=== PATIENT | male | born 1945 | race Caucasian/White ===

== ENCOUNTER 2018-06-03 11:43 | Emergency (ER) | payer MEDICARE, OTHER, SELFPAY ==
[2018-06-03] VITALS (7 sets, daily range): BP systolic 111–154; BP diastolic 57–96; PULSE 82–88; RESP 14–20; TEMP 36.1; O2SAT 95–97
--- NOTE | 2018-06-03 11:51 | DI.RAD.S_ITS ---
PROCEDURE: XR CHEST 2V INDICATIONS: sob TECHNIQUE: 2 views of the chest were acquired. COMPARISON: [facility], CHEST 2 VIEW, 06/24/2017, 10:29. [facility], CHEST 1 VIEW, 07/08/2016, 13:12. FINDINGS: Surgical changes and devices: None. Lungs and pleura: No pleural effusions or pneumothorax. Lungs are clear. Mediastinum: Mediastinal contours are normal. Heart size is normal. Bones and chest wall: No suspicious bony abnormalities. Soft tissues appear unremarkable. IMPRESSION: Normal for age, source of current shortness of breath symptoms is not seen. Dictated by: John Dillard M.D. on 06/03/2018 at 12:06 Approved by: John Dillard M.D. on 06/03/2018 at 12:07
--- NOTE | 2018-06-03 13:23 | ED.URI ---
HPI - URI/Sore Throat General Chief Complaint: Upper Respiratory Symptoms Stated Complaint: UPPER RESP PAIN, DIZZINESS,WEAK Time Seen by Provider: 06/03/18 13:23 Source: patient Mode of arrival: ambulatory Limitations: no limitations History of Present Illness HPI Narrative: Patient is a 72-year-old insulin-dependent diabetic male with a history of coronary artery disease here for evaluation of continued cough and upper respiratory congestion. He was just recently treated with a course of antibiotics however has been off those for the past several days. He is also here complaining of upper chest pain and upper back pain and tingling down into his bilateral arms. He was seen at the walk-in clinic to set him here to the emergency department for evaluation. Related Data Home Medications Medication Instructions Recorded Confirmed acetaminophen 650 mg PO Q6HP PRN #0 07/08/16 06/03/18 cetirizine 10 mg PO DAILY PRN #0 07/08/16 06/03/18 clopidogrel 75 mg PO DAILY #0 07/08/16 06/03/18 dulaglutide [Trulicity] 1.5 mg SC QWEEK #0 07/08/16 06/03/18 fenofibrate 160 mg PO DAILY #0 07/08/16 06/03/18 fluticasone 1 spray INTRANASAL PRN PRN #0 07/08/16 06/03/18 gabapentin [Neurontin] 600 mg PO BID #0 07/08/16 06/03/18 insulin glargine [Lantus U-100 60 unit SQ QDAY #0 07/08/16 06/03/18 Insulin] insulin lispro [Humalog U-100 7 - 20 unit SQ TIDAC #0 07/08/16 06/03/18 Insulin] nitroglycerin [Nitrostat] 0.4 mg SUBLINGUAL PRN PRN #0 07/08/16 06/03/18 aspirin 81 mg PO QPM #0 07/09/16 06/03/18 lisinopril 2.5 mg PO DAILY #0 07/09/16 06/03/18 pantoprazole 20 mg tablet,delayed 40 mg PO DAILY tab 05/21/18 06/03/18 release albuterol sulfate [ProAir HFA] 1 puff INHALATION Q4H PRN 06/03/18 06/03/18 benzonatate 100 mg PO BEDTIME PRN 06/03/18 06/03/18 meloxicam 15 mg PO DAILY 06/03/18 06/03/18 trazodone 50 - 100 mg PO BEDTIME PRN 06/03/18 06/03/18 Previous Rx's Medication Instructions Recorded pramoxine [Proctofoam] 1 nahed NC BID PRN #15 gm 06/09/16 isosorbide mononitrate 30 mg PO QAM #30 tab 07/09/16 codeine-guaifenesin [Guaifenesin 10 ml PO Q4-6H PRN #118 ml 06/03/18 AC] Allergies Allergy/AdvReac Type Severity Reaction Status Date / Time glipizide [GLIPIZIDE] Allergy Intermediate Verified 05/21/18 13:19 niacin [NIACIN] Allergy Intermediate Verified 05/21/18 13:19 [id number]-[id number]-Rbm Reductase Allergy Intermediate Verified 05/21/18 13:19 Inhibitor [[id number] REDUCTASE INHIBITOR] Review of Systems Constitutional Denies fever(s) and Denies headache(s) ENT Ears, Nose, Mouth, and Throat: Denies headache(s), Reports sinus pain, Reports sinus pressure and Denies sore throat Cardiovascular Reports chest pain, Denies palpitations and Denies dyspnea Respiratory Reports cough and Denies dyspnea Gastrointestinal Gastrointestinal: Denies abdominal pain, Denies nausea and Denies vomiting Musculoskeletal Denies myalgias and Denies arthralgias Integumentary/Breasts Denies lesions and Denies rash Neurologic Denies headache(s) Endocrine Denies palpitations Hematologic/Lymphatic Comments: Not on anticoagulation Allergic/Immunologic Denies urticaria PFSH Medical History Coronary artery disease (Acute) Diabetes (Acute) Hypertension (Acute) Social History Smoking Status: Former smoker Exam Initial Vital Signs Initial Vital Signs: Vital Signs Temperature 97.0 F L 06/03/18 11:44 Pulse Rate 85 06/03/18 11:44 Respiratory Rate 20 06/03/18 11:44 Blood Pressure 154/81 H 06/03/18 11:44 Pulse Oximetry 97 06/03/18 11:44 Const General: cooperative, healthy appearing, comfortable, well developed, well groomed and No acute distress Orientation: alert, awake and oriented x3 HENMT Head: normal to inspection and normocephalic Chest Chest: normal inspection of the chest, No crepitus and No tenderness Resp Effort & Inspection: normal respiratory effort Auscultation: clear to auscultation bilaterally Cardio Rate: regular rate Rhythm: regular rhythm Pulses: radial pulses present GI Inspection: non-distended Palpation: soft, No firm and No tender Skin Lesions: no lesions Rashes: no rashes Neuro General: alert, awake and oriented x3 Cognition: normal cognition Speech: speech normal Extrem General: normal to inspection and No edema Psych Appearance: grossly normal and well kempt Course Orders Ordered: ED Orders 06/03/18 11:51 XR chest 2V Stat 06/03/18 13:39 CT angio chest abdomen Stat 06/03/18 13:45 Basic Metabolic Panel Stat Complete Blood Count AUTO DIFF Stat Discontinued Medications Sodium Chloride (Normal Saline 0.9%) 1,000 mls @ 1,000 mls/hr IV BOLUS ONE Stop: 06/03/18 14:38 Last Infusion: 06/03/18 15:12 Dose: 0 mls/hr Admin: 06/03/18 13:51 Dose: 1,000 mls/hr Vital Signs - 8 hr 06/03/18 12:26 06/03/18 13:30 06/03/18 13:45 Pulse Rate 88 82 Respiratory Rate 14 Blood Pressure Blood Pressure [Left Arm] 148/96 H 119/83 Pulse Oximetry 96 96 06/03/18 14:56 06/03/18 15:01 06/03/18 15:44 Pulse Rate 85 88 Respiratory Rate 20 Blood Pressure 124/73 Blood Pressure [Left Arm] 111/57 L Pulse Oximetry 95 96 MDM - URI/Sore Throat Lab Data Attestation: I reviewed the patient's lab results. Result diagrams: 06/03/18 13:45 06/03/18 13:45 Lab Results 06/03/18 06/03/18 Range/Units 13:45 13:45 WBC 9.8 (4.5-11.0) X10^3/uL RBC 4.57 (4.5-5.9) X10^6/uL Hgb 12.3 L (13.5-17.5) g/dL Hct 37.9 L (41-53) % MCV 82.8 (80-100) fL MCH 27.0 (26-34) PG MCHC 32.6 (30-36) % RDW 15.1 H (11.6-14.8) % Plt Count 299 (150-400) X10^3/uL Neut % (Auto) 64.9 (50-75) % Lymph % (Auto) 23.9 L (25-40) % Edwards % (Auto) 9.2 (3-14) % Eos % (Auto) 1.1 L (2-4) % Baso % (Auto) 0.9 (0-2) % Neut # (Auto) 6300 (8485-6821) /uL Lymph # (Auto) 2300 (2193-6829) /uL Edwards # (Auto) 900 (0-900) /uL Eos # (Auto) 100 (0-450) /uL Baso # (Auto) 100 (0-100) /uL Sodium 135 L (137-145) mmol/L Potassium 4.5 (3.4-5.1) mmol/L Chloride 103 (98-107) mmol/L Carbon Dioxide 22 (22-32) mmol/L BUN 23 H (9-20) mg/dL Creatinine 1.10 (0.66-1.25) mg/dL Estimated GFR > 60.0 (>60) mL/min BUN/Creatinine Ratio 20.9 (6-22) Glucose 163 H (80-110) mg/dL Calcium 9.3 (8.4-10.2) mg/dL Imaging Data Chest x-ray: Radiologist's impression: ROCEDURE: XR CHEST 2V INDICATIONS: sob TECHNIQUE: 2 views of the chest were acquired. COMPARISON: [facility], CHEST 2 VIEW, 06/24/2017, 10:29. [facility], CHEST 1 VIEW, 07/08/2016, 13:12. FINDINGS: Surgical changes and devices: None. Lungs and pleura: No pleural effusions or pneumothorax. Lungs are clear. Mediastinum: Mediastinal contours are normal. Heart size is normal. Bones and chest wall: No suspicious bony abnormalities. Soft tissues appear unremarkable. IMPRESSION: Normal for age, source of current shortness of breath symptoms is not seen. Dictated by: John Dillard M.D. on 06/03/2018 at 12:06 Approved by: John Dillard M.D. on 06/03/2018 at 12:07 CTA chest: Radiologist's impression: ROCEDURE: CT ANGIO CHEST ABDOMEN INDICATIONS: chest and back pain eval for thoracic aortic dissection TECHNIQUE: Precontrast 5 mm thick sections acquired from the lung apices to the iliac crests. After the administration of intravenous contrast, 2.5 mm thick sections again acquired from the lung apices to the iliac crests. 10 mm maximum intensity projection (MIP) oblique sagittal and coronal reformats were then acquired. For radiation dose reduction, the following was used: automated exposure control. COMPARISON: [facility], CR, XR CHEST 2V, 06/03/2018, 11:57. FINDINGS: Image quality: Excellent. AORTA: Intramural hematoma: Absent Maximum hematoma thickness: Absent. Focal contrast enhancement: Intramural blood pool (< 2 mm neck or imperceptible communication with aortic lumen): Absent. Ulcer-like projection (broad communication with aortic lumen > 3 mm): Absent. Dissection: Absent [place] classification: Not applicable Maximum aortic diameter: Normal at 4.1 cm. Periaortic hematoma: Absent. CHEST: Lungs and pleura: No acute airspace opacities. No pleural effusions or pneumothorax. Central and peripheral airways are patent and normal in caliber. Mediastinum: Heart size is normal. No pericardial effusion. No mediastinal or hilar adenopathy by size criteria. Central pulmonary arteries are normal in size. Esophagus is normal in caliber. No hiatal hernias. Bones and chest wall: No axillary adenopathy by size criteria. Thyroid gland appears normal where well visualized. No suspicious bony lesions. No vertebral body compression fractures. ABDOMEN: Vasculature: Celiac trunk and mesenteric arteries are patent. Renal arteries are also patent. Solid organs: Liver is normal in size and enhancement. Gallbladder appears normal. Biliary system is non dilated. Pancreas enhances normally. Spleen is normal in size and enhancement. No adrenal nodules. Both kidneys are normal in size and enhancement, without hydronephrosis. Peritoneum and bowel: No free fluid or air. Bowel loops are normal in caliber and wall thickness. Nodes and vessels: No retroperitoneal or mesenteric adenopathy by size criteria. Inferior vena cava is normal in morphology. Bones: No suspicious bony lesions. No vertebral body compression fractures. Miscellaneous: No ventral hernias. IMPRESSION: Mild to moderate atherosclerotic calcification of the abdominal aorta but no aneurysm or dissection is seen. No pulmonary embolus is found. Source of reported chest pain is not identified. Dictated by: John Dillard M.D. on 06/03/2018 at 14:55 Approved by: John Dillard M.D. on 06/03/2018 at 15:0 [facility] Narrative Medical decision making narrative: His presenting symptoms they were fairly consistent with the upper respiratory infection and sinus congestion. We did discuss the use of decongestants. Also sent home with Desiree with codeine for a cough suppressant. He also has Tessalon Perles at home. The chest x-ray was negative. The CTA of his chest was ordered because he was having upper chest pain and back pain and radiating down to his arms. This was to evaluate for a dissection. The CT a of the chest was unremarkable. I did discuss all this with the patient and his were bedside. Will hold on further workup for now. They are going to do the decongestants at home. They are given return precautions. They expressed understanding and agreement plan. Discharge Plan Departure Patient Disposition: Home Clinical Impression: Upper respiratory infection, Cough Discharge Date/Time: 06/03/18 15:45 Interventions: ED Discharge Assessment Last Done: 06/03/18 15:44 Instructions: Cough (Alternative Therapy), Cough Activity Restrictions/Additional Instructions: I recommend you take the medication like we discussed. I also recommend that you take either Claritin or Kailyn or Zyrtec like we discussed. Also Flonase or Nasonex. Call your primary care doctor for follow-up. Return to the emergency department for any new or worsening symptoms Prescriptions: New codeine-guaifenesin [Guaifenesin AC] 10-100 mg/5 mL liquid 10 ml PO Q4-6H PRN (Reason: cough) Qty: 118 RF: 0 No Action pantoprazole 20 mg tablet,delayed release (DR/EC) 40 mg PO DAILY RF: 0 pramoxine [Proctofoam] 1 % foam 1 nahed NC BID PRNQty: 15 RF: 0 acetaminophen 325 mg Suppository 650 mg PO Q6HP PRN (Reason: pain) Qty: 0 RF: 0 cetirizine 10 MG tablet 10 mg PO DAILY PRN (Reason: unknown) Qty: 0 RF: 0 clopidogrel 75 MG tablet 75 mg PO DAILY Qty: 0 RF: 0 gabapentin [Neurontin] 300 MG capsule 600 mg PO BID Qty: 0 RF: 0 fluticasone 16 GM spray,suspension 1 spray Intranasal PRN PRN (Reason: Allergy Symptoms) Qty: 0 RF: 0 fenofibrate 160 MG tablet 160 mg PO DAILY Qty: 0 RF: 0 nitroglycerin [Nitrostat] 0.4 MG tablet, sublingual 0.4 mg Sublingual PRN PRN (Reason: Chest Pain) Qty: 0 RF: 0 dulaglutide [Trulicity] 1.5 MG/0.5 ML pen injector 1.5 mg SC QWEEK Qty: 0 RF: 0 insulin glargine [Lantus U-100 Insulin] 100 UNIT/1 ML solution 60 unit SQ QDAY Qty: 0 RF: 0 insulin lispro [Humalog U-100 Insulin] 100 UNIT/1 ML solution 7 - 20 unit SQ TIDAC Qty: 0 RF: 0 aspirin 81 MG tablet,delayed release (DR/EC) 81 mg PO QPM Qty: 0 RF: 0 lisinopril 2.5 MG tablet 2.5 mg PO DAILY Qty: 0 RF: 0 isosorbide mononitrate 30 MG tablet extended release 24 hr 30 mg PO QAM Qty: 30 RF: 0 trazodone 50 mg tablet 50 - 100 mg PO BEDTIME PRN (Reason: unknown) RF: 0 meloxicam 15 mg tablet 15 mg PO DAILY RF: 0 albuterol sulfate [ProAir HFA] 90 mcg/actuation HFA aerosol inhaler 1 puff Inhalation Q4H PRN (Reason: Shortness Of Breath) RF: 0 benzonatate 100 mg capsule 100 mg PO BEDTIME PRN (Reason: Cough) RF: 0
--- NOTE | 2018-06-03 13:39 | DI.CT.S_ITS ---
PROCEDURE: CT ANGIO CHEST ABDOMEN INDICATIONS: chest and back pain eval for thoracic aortic dissection TECHNIQUE: Precontrast 5 mm thick sections acquired from the lung apices to the iliac crests. After the administration of intravenous contrast, 2.5 mm thick sections again acquired from the lung apices to the iliac crests. 10 mm maximum intensity projection (MIP) oblique sagittal and coronal reformats were then acquired. For radiation dose reduction, the following was used: automated exposure control. COMPARISON: [facility], CR, XR CHEST 2V, 06/03/2018, 11:57. FINDINGS: Image quality: Excellent. AORTA: Intramural hematoma: Absent Maximum hematoma thickness: Absent. Focal contrast enhancement: Intramural blood pool (< 2 mm neck or imperceptible communication with aortic lumen): Absent. Ulcer-like projection (broad communication with aortic lumen > 3 mm): Absent. Dissection: Absent [place] classification: Not applicable Maximum aortic diameter: Normal at 4.1 cm. Periaortic hematoma: Absent. CHEST: Lungs and pleura: No acute airspace opacities. No pleural effusions or pneumothorax. Central and peripheral airways are patent and normal in caliber. Mediastinum: Heart size is normal. No pericardial effusion. No mediastinal or hilar adenopathy by size criteria. Central pulmonary arteries are normal in size. Esophagus is normal in caliber. No hiatal hernias. Bones and chest wall: No axillary adenopathy by size criteria. Thyroid gland appears normal where well visualized. No suspicious bony lesions. No vertebral body compression fractures. ABDOMEN: Vasculature: Celiac trunk and mesenteric arteries are patent. Renal arteries are also patent. Solid organs: Liver is normal in size and enhancement. Gallbladder appears normal. Biliary system is non dilated. Pancreas enhances normally. Spleen is normal in size and enhancement. No adrenal nodules. Both kidneys are normal in size and enhancement, without hydronephrosis. Peritoneum and bowel: No free fluid or air. Bowel loops are normal in caliber and wall thickness. Nodes and vessels: No retroperitoneal or mesenteric adenopathy by size criteria. Inferior vena cava is normal in morphology. Bones: No suspicious bony lesions. No vertebral body compression fractures. Miscellaneous: No ventral hernias. IMPRESSION: Mild to moderate atherosclerotic calcification of the abdominal aorta but no aneurysm or dissection is seen. No pulmonary embolus is found. Source of reported chest pain is not identified. Dictated by: John Dillard M.D. on 06/03/2018 at 14:55 Approved by: John Dillard M.D. on 06/03/2018 at 15:00
[2018-06-03] MEDS: SODIUM CHLORIDE 0.9% 1,000 ML 1000 ML IV (13:51)
[2018-06-03 13:55] LABS: Add Manual Diff / Slide Review NO; Basophils Absolute Auto 100 /uL (0-100); Basophils Percent Auto 0.9 % (0-2); Eosinophils Absolute Auto 100 /uL (0-450); Eosinophils Percent Auto 1.1 % (2-4); Hematocrit 37.9 % (41-53); Hemoglobin 12.3 g/dL (13.5-17.5); Lymphocytes Absolute Auto 2300 /uL (1100-4500); Lymphocytes Percent Auto 23.9 % (25-40); Mean Corpuscular HGB Conc 32.6 % (30-36); Mean Corpuscular Volume 82.8 fL (80-100); Monocytes Absolute Auto 900 /uL (0-900); Monocytes Percent Auto 9.2 % (3-14); Neutrophils Absolute Auto 6300 /uL (1500-7000); Neutrophils Percent Auto 64.9 % (50-75); Platelet Count 299 X10^3/uL (150-400); Red Blood Cell Count 4.57 X10^6/uL (4.5-5.9); Red Cell Distribution Width 15.1 % (11.6-14.8); White Blood Cell Count 9.8 X10^3/uL (4.5-11.0)
[2018-06-03 14:10] LABS: BUN Creatinine Ratio 20.9 (6-22); Blood Urea Nitrogen 23 mg/dL (9-20); Calcium 9.3 mg/dL (8.4-10.2); Carbon Dioxide 22 mmol/L (22-32); Chloride 103 mmol/L (98-107); Estimated Glomerular Filt Rate > 60.0 mL/min (>60); Glucose 163 mg/dL (80-110); HEMOLYSIS < 15 (0-50); Potassium 4.5 mmol/L (3.4-5.1); Sodium 135 mmol/L (137-145)
== END 2018-06-03 15:45 | disposition home or self-care (01) ==
PROVIDERS: Emergency Provider Emergency Medicine; PCP Physician Assistant Medical
DX: J06.9 Acute upper respiratory infection, unspecified (principal)
CPT/HCPCS: 36591; 71046; 71275; 74175; 80048; 85025; 96360; 99283; 99285

== ENCOUNTER 2018-12-06 13:39 | Observation (INO) | payer MEDICARE, OTHER, SELFPAY ==
[2018-12-06] VITALS (9 sets, daily range): BP systolic 109–170; BP diastolic 56–87; PULSE 67–83; RESP 11–20; TEMP 36.4–36.7; O2SAT 95–99; BMI 37.0
--- NOTE | 2018-12-06 13:56 | DI.RAD.S_ITS ---
PROCEDURE: XR ACUTE ABDOMEN SERIES INDICATIONS: Abdominal pain, groin pain, back pain TECHNIQUE: One view chest and two views of the abdomen were acquired. COMPARISON: None. FINDINGS: Surgical changes and devices: No median sternotomy wires are seen. ne. Chest: Lungs are clear. Heart size is enlarged. No pleural effusions. No pneumoperitoneum. Abdomen: Bowel gas pattern is normal. Small calcifications are noted in the region of upper to mid pole left kidney and measures up to 6 mm in size. No right-sided renal calcification. Visualized solid organ contours appear normal. Bones: No suspicious bony lesions. IMPRESSION: 1. Finding is suggestive of left-sided renal calculi. No right-sided renal calculi. No bowel obstruction or gross free air. 2. Cardiomegaly. No acute cardiopulmonary pathology. Dictated by: Howie Martin M.D. on 12/06/2018 at 14:50 Approved by: Howie Martin M.D. on 12/06/2018 at 14:54
--- NOTE | 2018-12-06 13:58 | ED.EXTPRO ---
HPI - Extremity Problem General Chief complaint: Extremity Problem,Nontraumatic Stated complaint: Lt hip pain and nausea Time Seen by Provider: 12/06/18 13:46 Source: patient, family and EMS Mode of arrival: EMS Limitations: no limitations History of Present Illness HPI Narrative: 73-year-old male former smoker with extensive cardiac history including four-way bypass presents by EMS for concerns of left anterior hip pain in the absence of any injury. He states that over the past day and a half for so his pain has become increasingly worse and is particularly bad with any attempt at ambulation. He denies any falls or overuse type injuries. He denies any numbness, tingling or weakness of his lower extremity. He is not dizzy nor weak or lightheaded and denies chest pain or shortness of breath. His nausea and vomiting when the pain flares. He denies any change in bowel habits nor dysuria, frequency or urgency. He has had kidney stones in the past and states this feels different. His pain improves when he rolled onto his left side and applies pressure to the hip and become significantly worse with attempts at ambulation. He does admit to some left posterior flank pain MD Complaint: extremity pain Onset (ago): day(s) Pain Consistency: constant Location: left Quality: stabbing and aching Exacerbating factors: weight bearing and walking Related Data Home Medications Medication Instructions Recorded Confirmed Lantus U-100 Insulin 50 unit SQ QPM #0 07/08/16 12/06/18 clopidogrel 75 mg PO DAILY #0 07/08/16 12/06/18 fenofibrate 160 mg PO QPM #0 07/08/16 12/06/18 fluticasone propionate 2 spray INTRANASAL DAILY PRN #0 07/08/16 12/06/18 gabapentin [Neurontin] 600 mg PO BID #0 07/08/16 12/06/18 insulin lispro [Humalog U-100 6 unit SQ TIDAC #0 07/08/16 12/06/18 Insulin] nitroglycerin [Nitrostat] 0.4 mg SUBLINGUAL PRN PRN #0 07/08/16 12/06/18 aspirin 81 mg PO QPM #0 07/09/16 12/06/18 lisinopril 2.5 mg PO DAILY #0 07/09/16 12/06/18 albuterol sulfate [ProAir HFA] 1 puff INHALATION Q4H PRN 06/03/18 12/06/18 meloxicam 15 mg PO DAILY MDD pain 06/03/18 12/06/18 acetaminophen 650 mg PO Q6H PRN 12/06/18 12/06/18 cetirizine 10 mg PO DAILY PRN 12/06/18 12/06/18 dulaglutide [Trulicity] 0.75 mg SUBCUT QWEEK 12/06/18 12/06/18 isosorbide mononitrate 30 mg PO BID 12/06/18 12/06/18 pantoprazole 40 mg PO DAILY 12/06/18 12/06/18 Allergies Allergy/AdvReac Type Severity Reaction Status Date / Time glipizide [GLIPIZIDE] Allergy Intermediate Verified 12/06/18 13:49 niacin [NIACIN] Allergy Intermediate Verified 12/06/18 13:49 Mmunxwf-Sxe-Grq Reductase Allergy Intermediate Verified 12/06/18 13:49 Inhibitor [[id number] REDUCTASE INHIBITOR] albiglutide [From Tanzeum] Allergy Unknown Verified 12/06/18 17:12 metoprolol Allergy Unknown Verified 12/06/18 17:12 Review of Systems Constitutional Denies chills, Denies fever(s), Denies lethargy and Denies weakness Eyes Denies change in vision, Denies eye discharge, Denies irritation and Denies loss of vision ENT Ears, Nose, Mouth, and Throat: Denies change in voice, Denies neck pain and Denies sore throat Cardiovascular Denies chest pain, Denies irregular heart rhythm, Denies lightheadedness, Denies palpitations, Denies dyspnea, Denies dyspnea on exertion and Denies orthopnea Respiratory Denies cough, Denies dyspnea, Denies dyspnea on exertion and Denies wheezing Gastrointestinal Gastrointestinal: Denies abdominal pain, Denies change in bowel habits, Denies diarrhea, Denies nausea and Denies vomiting Genitourinary Denies hematuria, Denies flank pain, Denies urinary incontinence and Denies urinary urgency Musculoskeletal Reports limited range of motion and Denies neck pain Integumentary/Breasts Denies pruritus, Denies erythema, Denies rash and Denies wounds Neurologic Denies confusion, Denies loss of vision and Denies weakness Psychiatric Denies anxiety, Denies confusion, Denies depression, Denies homicidal ideation and Denies suicidal ideation Endocrine Denies palpitations Hematologic/Lymphatic Denies easy bruising Allergic/Immunologic Denies wheezing [facility] Medical History Aneurysm (Chronic) History of kidney stones (Chronic) Coronary artery disease (Acute) Diabetes (Acute) Hypertension (Acute) Surgical History History of coronary artery stent placement (Chronic) History of colon resection (Inactive) S/P CABG x 4 (Inactive) Family History (Updated 12/06/18 @ 23:18 by EVELINA Macedo) Mother Hypertension Father Hypertension Social History Smoking Status: Former smoker Family History Mother Hypertension Father Hypertension Social History Smoking Status: Former smoker Exam Narrative Exam Narrative: GENERAL: 73-year-old male appears stated age, obviously quite uncomfortable, holding an emesis basin and rubbing his left groin. HEAD: Atraumatic. Normocephalic. No temporal or scalp tenderness. EYES: Pupils equal round and reactive. Extraocular motions intact. No scleral icterus. No injection or drainage. ENT: Nose without bleeding, purulent drainage or septal hematoma. Throat without erythema, tonsillar hypertrophy or exudate. Uvula midline. Airway patent. NECK: Trachea midline. No JVD or lymphadenopathy. Supple, nontender, no meningeal signs. CARDIOVASCULAR: Regular rate and rhythm without murmurs, gallops, or rubs. RESPIRATORY: Clear to auscultation. Breath sounds equal bilaterally. No wheezes, rales, or rhonchi. GASTROINTESTINAL: Abdomen soft, non-tender, nondistended. No hepato-splenomegaly, or palpable masses. No guarding. : No testicular or scrotal pain, swelling or redness. No evidence of hernia on exam. EXTREMITIES: Palpable left femoral hernia pulse, no redness, warmth, swelling, induration or fluctuance. No clubbing, cyanosis, or edema. Patient does quite well with passive flexion extension of the hip as well as internal and external rotation. He has little to no pain with axial loading of the left hip. BACK: Mild left flank tenderness to palpation NEURO: AOx3. SKIN: No rash or erythema. Initial Vital Signs Initial Vital Signs: Vital Signs Temperature 97.8 F 12/06/18 13:42 Pulse Rate 81 12/06/18 13:42 Respiratory Rate 16 12/06/18 13:42 Blood Pressure 143/71 H 12/06/18 13:42 Pulse Oximetry 97 12/06/18 13:42 Course Orders Ordered: ED Orders 12/07/18 05:45 Basic Metabolic Panel Routine Hemoglobin A1C% w Est Avg Glu Routine 12/07/18 17:00 Complete Blood Count AUTO DIFF Routine 12/07/18 20:01 Consult to Physical Therapy Evaluate & Treat Acetaminophen (Tylenol) 650 mg PO Q6HR PRN PRN Reason: As Needed for Fever/Mild Pain Last Admin: 12/07/18 00:24 Dose: 650 mg Acetaminophen (Tylenol) 650 mg PO Q6H PRN PRN Reason: pain Hydrocodone Bitart/Acetaminophen (Vivian 5/325) 1 tab PO Q6HR PRN PRN Reason: Pain, Moderate (4-6) Albuterol (Ventolin Hfa) 1 puff INH Q4H PRN PRN Reason: Shortness Of Breath Aspirin (Aspirin Ec) 81 mg PO QPM [facility] Calcium Carbonate (Tums) 1,000 mg PO Q4HR PRN PRN Reason: Dyspepsia Clopidogrel Bisulfate (Plavix) 75 mg PO DAILY [facility] Dextrose (D50w) 25 gm IV PRN PRN PRN Reason: Hypoglycemia Enoxaparin Sodium (Lovenox) 40 mg SUBCUT DAILY [facility] Fenofibrate (Triglide) 160 mg PO QPM [facility] Gabapentin (Neurontin) 600 mg PO BID [facility] Insulin Aspart (Novolog Flexpen) 6 unit SUBCUT TIDWM [facility] Insulin Glargine (Lantus Solostar (Pen)) 50 unit SUBCUT 2100 BERTHA Last Admin: 12/06/18 22:13 Dose: 50 unit Isosorbide Mononitrate (Imdur) 30 mg PO BID [facility] Lisinopril (Zestril) 2.5 mg PO DAILY [facility] Ondansetron HCl (Zofran) 4 mg IV Q4HR PRN PRN Reason: Nausea And Vomiting Last Admin: 12/06/18 17:46 Dose: 4 mg Pantoprazole Sodium (Protonix) 40 mg PO DAILY [facility] Promethazine HCl (Phenergan) 25 mg PO Q6HR PRN PRN Reason: Nausea Discontinued Medications Acetaminophen (Tylenol) 650 mg PO NOW ONE Stop: 12/06/18 20:54 Last Admin: 12/06/18 19:50 Dose: 650 mg Insulin Human NPH (Humulin N) 6 unit SUBCUT TIDWM [facility] Reevaluation(s) Reevaluation #1: After extensive lab and imaging workup with no obvious etiology of the pain, ambulation trial attempted, patient given a walker and instruction and could not put weight on his left lower extremity, stating the left anterior hip pain was excruciating Consultations Consultation #1: Discussion with on-call orthopedics, no need for immediate intervention, or procedure, but perhaps a pelvic MRI would be telling. Recommends admission to hospitalist Vital Signs - 8 hr 12/07/18 00:26 12/07/18 03:10 Temperature 98.3 F Pulse Rate 78 Respiratory Rate 20 Blood Pressure 149/77 H Pulse Oximetry 99 95 MDM - Extremity (Nontraumatic) Lab Data Result diagrams: 12/06/18 18:50 12/07/18 05:45 Lab Results 12/06/18 12/06/18 12/06/18 Range/Units 17:40 18:50 18:50 WBC 10.3 (4.5-11.0) X10^3/uL RBC 5.09 (4.5-5.9) X10^6/uL Hgb 14.1 (13.5-17.5) g/dL Hct 43.2 (41-53) % MCV 84.9 (80-100) fL MCH 27.8 (26-34) PG MCHC 32.7 (30-36) % RDW 15.6 H (11.6-14.8) % Plt Count 251 (150-400) X10^3/uL Neut % (Auto) 74.9 (50-75) % Lymph % (Auto) 16.7 L (25-40) % Bradley % (Auto) 7.4 (3-14) % Eos % (Auto) 0.4 L (2-4) % Baso % (Auto) 0.6 (0-2) % Neut # (Auto) 7700 H (8044-7436) /uL Lymph # (Auto) 1700 (9894-4256) /uL Bradley # (Auto) 800 (0-900) /uL Eos # (Auto) 0 (0-450) /uL Baso # (Auto) 100 (0-100) /uL ESR (0-15) MM/HR PT 11.4 (10.1-12.7) SECONDS INR 1.0 (0.9-1.3) Sodium (137-145) mmol/L Potassium (3.4-5.1) mmol/L Chloride (98-107) mmol/L Carbon Dioxide (22-32) mmol/L BUN (9-20) mg/dL Creatinine (0.66-1.25) mg/dL Estimated GFR (>60) mL/min BUN/Creatinine Ratio (6-22) Glucose (80-110) mg/dL Hemoglobin A1c (4.0-6.0) % Calcium (8.4-10.2) mg/dL C-Reactive Protein (<1.0) mg/dL Urine Color Yellow Urine Appearance Clear Urine pH 7.5 (4.5-8.0) Ur Specific Dodge 1.010 (1.000-1.035) Urine Protein Negative (Negative) Urine Glucose (UA) Negative (Negative) g/dL Urine Ketones Negative (NEGATIVE) Urine Occult Blood Negative (Negative) Urine Nitrate Negative (Negative) Urine Bilirubin Negative (NEGATIVE) Urine Urobilinogen 1.0 (0.2) E.U./dL Ur Leukocyte Esterase Negative (NEGATIVE) Urine RBC None seen (0-5/HPF) Urine WBC 0-1/hpf (0-5/HPF) Ur Squamous Epith Cells 0-1 /hpf (0-5/HPF) Amorphous Sediment 1+ Urine Bacteria None seen (None) Ur Culture Indicated? Cult not indicated 12/06/18 12/06/18 12/06/18 Range/Units 18:50 18:50 18:50 WBC (4.5-11.0) X10^3/uL RBC (4.5-5.9) X10^6/uL Hgb (13.5-17.5) g/dL Hct (41-53) % MCV (80-100) fL MCH (26-34) PG MCHC (30-36) % RDW (11.6-14.8) % Plt Count (150-400) X10^3/uL Neut % (Auto) (50-75) % Lymph % (Auto) (25-40) % Bradley % (Auto) (3-14) % Eos % (Auto) (2-4) % Baso % (Auto) (0-2) % Neut # (Auto) (5551-2820) /uL Lymph # (Auto) (0333-1645) /uL Bradley # (Auto) (0-900) /uL Eos # (Auto) (0-450) /uL Baso # (Auto) (0-100) /uL ESR 7 (0-15) MM/HR PT (10.1-12.7) SECONDS INR (0.9-1.3) Sodium 137 (137-145) mmol/L Potassium 4.7 (3.4-5.1) mmol/L Chloride 100 (98-107) mmol/L Carbon Dioxide 25 (22-32) mmol/L BUN 15 (9-20) mg/dL Creatinine 0.80 (0.66-1.25) mg/dL Estimated GFR > 60.0 (>60) mL/min BUN/Creatinine Ratio 18.8 (6-22) Glucose 129 H (80-110) mg/dL Hemoglobin A1c (4.0-6.0) % Calcium 9.4 (8.4-10.2) mg/dL C-Reactive Protein 0.9 (<1.0) mg/dL Urine Color Urine Appearance Urine pH (4.5-8.0) Ur Specific Dodge (1.000-1.035) Urine Protein (Negative) Urine Glucose (UA) (Negative) g/dL Urine Ketones (NEGATIVE) Urine Occult Blood (Negative) Urine Nitrate (Negative) Urine Bilirubin (NEGATIVE) Urine Urobilinogen (0.2) E.U./dL Ur Leukocyte Esterase (NEGATIVE) Urine RBC (0-5/HPF) Urine WBC (0-5/HPF) Ur Squamous Epith Cells (0-5/HPF) Amorphous Sediment Urine Bacteria (None) Ur Culture Indicated? 12/07/18 12/07/18 Range/Units 05:45 05:45 WBC (4.5-11.0) X10^3/uL RBC (4.5-5.9) X10^6/uL Hgb (13.5-17.5) g/dL Hct (41-53) % MCV (80-100) fL MCH (26-34) PG MCHC (30-36) % RDW (11.6-14.8) % Plt Count (150-400) X10^3/uL Neut % (Auto) (50-75) % Lymph % (Auto) (25-40) % Bradley % (Auto) (3-14) % Eos % (Auto) (2-4) % Baso % (Auto) (0-2) % Neut # (Auto) (2927-9033) /uL Lymph # (Auto) (6659-0124) /uL Bradley # (Auto) (0-900) /uL Eos # (Auto) (0-450) /uL Baso # (Auto) (0-100) /uL ESR (0-15) MM/HR PT (10.1-12.7) SECONDS INR (0.9-1.3) Sodium 138 (137-145) mmol/L Potassium 4.2 (3.4-5.1) mmol/L Chloride 102 (98-107) mmol/L Carbon Dioxide 26 (22-32) mmol/L BUN 13 (9-20) mg/dL Creatinine 1.00 (0.66-1.25) mg/dL Estimated GFR > 60.0 (>60) mL/min BUN/Creatinine Ratio 13.0 (6-22) Glucose 128 H (80-110) mg/dL Hemoglobin A1c 7.2 H (4.0-6.0) % Calcium 9.4 (8.4-10.2) mg/dL C-Reactive Protein (<1.0) mg/dL Urine Color Urine Appearance Urine pH (4.5-8.0) Ur Specific Dodge (1.000-1.035) Urine Protein (Negative) Urine Glucose (UA) (Negative) g/dL Urine Ketones (NEGATIVE) Urine Occult Blood (Negative) Urine Nitrate (Negative) Urine Bilirubin (NEGATIVE) Urine Urobilinogen (0.2) E.U./dL Ur Leukocyte Esterase (NEGATIVE) Urine RBC (0-5/HPF) Urine WBC (0-5/HPF) Ur Squamous Epith Cells (0-5/HPF) Amorphous Sediment Urine Bacteria (None) Ur Culture Indicated? Point of Care Testing Glucose POC 141 [facility] Narrative Medical decision making narrative: 73M with extensive cardiac history complains of severe L anterior hip pain in the absence of injury. Extensive workup for etiologies such as musculoskeletal, vascular, intrabdominal pathology, hernia, testicular torsion, considered. No obvious etiology, attempt to get PT for ambulation trial, they were gone for the day. Attempts at ambulation trial fail quickly, even with multiple assistants and a walker. He is a significant fall risk and will need hospitalization to further evaluate and characterize his pain as well as get PT consultation if need Discharge Plan Departure Patient Disposition: Admitted as Observation Clinical Impression: Acute hip pain Qualifiers: Laterality: left Qualified Code(s): M25.552 - Pain in left hip Discharge Date/Time: 12/06/18 20:45 Interventions: ED Discharge Assessment Last Done: 12/06/18 20:45 Admit Date/Time: 12/06/18 20:03 Admit Provider: Meenakshi Gamez
--- NOTE | 2018-12-06 14:55 | DI.CT.S_ITS ---
PROCEDURE: CT ABDOMEN PELVIS W CON INDICATIONS: severe L groin pain, radiation to back, vasular hx TECHNIQUE: After the administration of intravenous contrast, 5 mm thick sections acquired from the diaphragm to the symphysis. 5 mm coronal and sagittal reformats were acquired. For radiation dose reduction, the following was used: automated exposure control, adjustment of mA and/or kV according to patient size. COMPARISON: None. FINDINGS: Image quality: Excellent. ABDOMEN: Lung bases: Lung bases are clear. Heart size is enlarged, no pericardial effusion. Median sternotomy wires are seen. Solid organs: Liver is normal in size and enhancement. There is hepatic steatosis. Gallbladder is within normal limits. Biliary system is non dilated. Pancreas enhances normally. Spleen is normal in size and enhancement. No adrenal nodules. Kidneys demonstrate normal size and enhancement, without hydronephrosis. 23 mm bilateral nonobstructing renal calculi are seen. Peritoneum and bowel: Bowel loops demonstrate normal wall thickness and caliber. No free fluid or air. Postsurgical changes are noted involving the right colon, suggest clinical correlation. Nodes and vessels: No retroperitoneal or mesenteric adenopathy by size criteria. Aorta and inferior vena cava are normal in size. Moderate atherosclerotic calcifications throughout the abdominal aorta and bilaterally at leg arteries are seen. Bilateral proximal common iliac artery aneurysm is seen measures up to 1.5 cm in diameter proximal left common iliac artery at 1.4 cm in diameter in proximal right common iliac artery. Miscellaneous: No ventral hernias. PELVIS: Genitourinary: Bladder wall thickness is normal. Miscellaneous: No inguinal hernias or adenopathy. Bones: No suspicious bony lesions. No vertebral body compression fractures. Degenerative disc disease throughout lower thoracic and lumbar spine is seen. IMPRESSION: 1. Post surgical changes involving right colon. No bowel obstruction. No abnormal bowel wall thickening. No free fluid or free air. 2. Dense atherosclerotic calcifications in mid to distal abdominal aorta and bilateral common iliac arteries. 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 3. Hepatic steatosis, no discrete hepatic lesion. 4. Tiny 2-3 mm bilateral nonobstructing renal calculi. No hydronephrosis. Dictated by: Howie Martin M.D. on 12/06/2018 at 16:12 Approved by: Howie Martin M.D. on 12/06/2018 at 16:15
--- NOTE | 2018-12-06 17:25 | PC.NURSE ---
Pt reports pain when he moves shoots up to a 5-6/10 but is zero when he's laying on his left side.
[2018-12-06] MEDS: ONDANSETRON 4 MG/2 ML INJ IV (17:46)
[2018-12-06 17:47] LABS: Bacteria Urine None Seen; RBC Urine None Seen (0-5/HPF)
--- NOTE | 2018-12-06 17:52 | PC.NURSE ---
Pt stood up to attempt ambulation, 2 person standby assist. He was not able to bear weight on his left leg. He did urinate about 200ml but then struggled to keep his balance standing with the walker, one step and he cried out in pain. Able to get him back into bed safely and pt reports his pain 3/10 while lying down in bed. Family worried about his diabetes so they are asking what his glucose is. We will check it.
[2018-12-06 18:00] LABS: Appearance Urine UA CLEAR; Bilirubin Urine UA NEGATIVE (NEGATIVE); Color Urine UA YELLOW; Glucose Urine UA NEGATIVE (Negative); Ketones Urine UA NEGATIVE (NEGATIVE); Leukocyte Esterase Urine UA NEGATIVE (NEGATIVE); Nitrite Urine UA NEGATIVE (Negative); Occult Blood Urine UA NEGATIVE (Negative); Protein Urine UA NEGATIVE (Negative); pH Urine UA 7.5 (4.5-8.0)
[2018-12-06 18:09] LABS: Amorphous Sediment Urine 1+; Culture Indicated Urine Cult Not Indicated; Squamous Epithelial Cell Urine 0-1 /HPF (0-5/HPF); WBC Urine 0-1/HPF (0-5/HPF)
--- NOTE | 2018-12-06 18:37 | ED_ITS ---
HPI - Extremity Problem General Chief complaint: Extremity Problem,Nontraumatic Stated complaint: Lt hip pain and nausea Time Seen by Provider: 12/06/18 13:46 Source: patient, family and EMS Mode of arrival: EMS Limitations: no limitations History of Present Illness HPI Narrative: 73-year-old male former smoker with extensive cardiac history including four-way bypass presents by EMS for concerns of left anterior hip pain in the absence of any injury. He states that over the past day and a half for so his pain has become increasingly worse and is particularly bad with any attempt at ambulation. He denies any falls or overuse type injuries. He denies any numbness, tingling or weakness of his lower extremity. He is not dizzy nor weak or lightheaded and denies chest pain or shortness of breath. His nausea and vomiting when the pain flares. He denies any change in bowel habits nor dysuria, frequency or urgency. He has had kidney stones in the past and states this feels different. His pain improves when he rolled onto his left side and applies pressure to the hip and become significantly worse with attempts at ambulation. He does admit to some left posterior flank pain MD Complaint: extremity pain Onset (ago): day(s) Pain Consistency: constant Location: left Quality: stabbing and aching Exacerbating factors: weight bearing and walking Related Data Home Medications Medication Instructions Recorded Confirmed Lantus U-100 Insulin 50 unit SQ QPM #0 07/08/16 12/06/18 clopidogrel 75 mg PO DAILY #0 07/08/16 12/06/18 fenofibrate 160 mg PO QPM #0 07/08/16 12/06/18 fluticasone propionate 2 spray INTRANASAL DAILY PRN #0 07/08/16 12/06/18 gabapentin [Neurontin] 600 mg PO BID #0 07/08/16 12/06/18 insulin lispro [Humalog U-100 6 unit SQ TIDAC #0 07/08/16 12/06/18 Insulin] nitroglycerin [Nitrostat] 0.4 mg SUBLINGUAL PRN PRN #0 07/08/16 12/06/18 aspirin 81 mg PO QPM #0 07/09/16 12/06/18 lisinopril 2.5 mg PO DAILY #0 07/09/16 12/06/18 albuterol sulfate [ProAir HFA] 1 puff INHALATION Q4H PRN 06/03/18 12/06/18 meloxicam 15 mg PO DAILY MDD pain 06/03/18 12/06/18 acetaminophen 650 mg PO Q6H PRN 12/06/18 12/06/18 cetirizine 10 mg PO DAILY PRN 12/06/18 12/06/18 dulaglutide [Trulicity] 0.75 mg SUBCUT QWEEK 12/06/18 12/06/18 isosorbide mononitrate 30 mg PO BID 12/06/18 12/06/18 pantoprazole 40 mg PO DAILY 12/06/18 12/06/18 Allergies Allergy/AdvReac Type Severity Reaction Status Date / Time glipizide [GLIPIZIDE] Allergy Intermediate Verified 12/06/18 13:49 niacin [NIACIN] Allergy Intermediate Verified 12/06/18 13:49 Fffklol-Mco-Vdt Reductase Allergy Intermediate Verified 12/06/18 13:49 Inhibitor [SIDHYTC-KAP-RWV REDUCTASE INHIBITOR] albiglutide [From Tanzeum] Allergy Unknown Verified 12/06/18 17:12 metoprolol Allergy Unknown Verified 12/06/18 17:12 Review of Systems Constitutional Denies chills, Denies fever(s), Denies lethargy and Denies weakness Eyes Denies change in vision, Denies eye discharge, Denies irritation and Denies loss of vision ENT Ears, Nose, Mouth, and Throat: Denies change in voice, Denies neck pain and Denies sore throat Cardiovascular Denies chest pain, Denies irregular heart rhythm, Denies lightheadedness, Denies palpitations, Denies dyspnea, Denies dyspnea on exertion and Denies orthopnea Respiratory Denies cough, Denies dyspnea, Denies dyspnea on exertion and Denies wheezing Gastrointestinal Gastrointestinal: Denies abdominal pain, Denies change in bowel habits, Denies diarrhea, Denies nausea and Denies vomiting Genitourinary Denies hematuria, Denies flank pain, Denies urinary incontinence and Denies urinary urgency Musculoskeletal Reports limited range of motion and Denies neck pain Integumentary/Breasts Denies pruritus, Denies erythema, Denies rash and Denies wounds Neurologic Denies confusion, Denies loss of vision and Denies weakness Psychiatric Denies anxiety, Denies confusion, Denies depression, Denies homicidal ideation and Denies suicidal ideation Endocrine Denies palpitations Hematologic/Lymphatic Denies easy bruising Allergic/Immunologic Denies wheezing [facility] Medical History Aneurysm (Chronic) History of kidney stones (Chronic) Coronary artery disease (Acute) Diabetes (Acute) Hypertension (Acute) Surgical History History of coronary artery stent placement (Chronic) History of colon resection (Inactive) S/P CABG x 4 (Inactive) Family History (Updated 12/06/18 @ 23:18 by EVELINA Macedo) Mother Hypertension Father Hypertension Social History Smoking Status: Former smoker Family History Mother Hypertension Father Hypertension Social History Smoking Status: Former smoker Exam Narrative Exam Narrative: GENERAL: 73-year-old male appears stated age, obviously quite uncomfortable, holding an emesis basin and rubbing his left groin. HEAD: Atraumatic. Normocephalic. No temporal or scalp tenderness. EYES: Pupils equal round and reactive. Extraocular motions intact. No scleral ic terus. No injection or drainage. ENT: Nose without bleeding, purulent drainage or septal hematoma. Throat without erythema, tonsillar hypertrophy or exudate. Uvula midline. Airway patent. NECK: Trachea midline. No JVD or lymphadenopathy. Supple, nontender, no meningeal signs. CARDIOVASCULAR: Regular rate and rhythm without murmurs, gallops, or rubs. RESPIRATORY: Clear to auscultation. Breath sounds equal bilaterally. No wheezes, rales, or rhonchi. GASTROINTESTINAL: Abdomen soft, non-tender, nondistended. No hepato- splenomegaly, or palpable masses. No guarding. : No testicular or scrotal pain, swelling or redness. No evidence of hernia on exam. EXTREMITIES: Palpable left femoral hernia pulse, no redness, warmth, swelling, induration or fluctuance. No clubbing, cyanosis, or edema. Patient does quite well with passive flexion extension of the hip as well as internal and external rotation. He has little to no pain with axial loading of the left hip. BACK: Mild left flank tenderness to palpation NEURO: AOx3. SKIN: No rash or erythema. Initial Vital Signs Initial Vital Signs: Vital Signs Temperature 97.8 F 12/06/18 13:42 Pulse Rate 81 12/06/18 13:42 Respiratory Rate 16 12/06/18 13:42 Blood Pressure 143/71 H 12/06/18 13:42 Pulse Oximetry 97 12/06/18 13:42 Course Orders Ordered: ED Orders 12/07/18 05:45 Basic Metabolic Panel Routine Hemoglobin A1C% w Est Avg Glu Routine 12/07/18 17:00 Complete Blood Count AUTO DIFF Routine 12/07/18 20:01 Consult to Physical Therapy Evaluate & Treat Acetaminophen (Tylenol) 650 mg PO Q6HR PRN PRN Reason: As Needed for Fever/Mild Pain Last Admin: 12/07/18 00:24 Dose: 650 mg Acetaminophen (Tylenol) 650 mg PO Q6H PRN PRN Reason: pain Hydrocodone Bitart/Acetaminophen ([place] 5/325) 1 tab PO Q6HR PRN PRN Reason: Pain, Moderate (4-6) Albuterol (Ventolin Hfa) 1 puff INH Q4H PRN PRN Reason: Shortness Of Breath Aspirin (Aspirin Ec) 81 mg PO QPM [facility] Calcium Carbonate (Tums) 1,000 mg PO Q4HR PRN PRN Reason: Dyspepsia Clopidogrel Bisulfate (Plavix) 75 mg PO DAILY [facility] Dextrose (D50w) 25 gm IV PRN PRN PRN Reason: Hypoglycemia Enoxaparin Sodium (Lovenox) 40 mg SUBCUT DAILY [facility] Fenofibrate (Triglide) 160 mg PO QPM [facility] Gabapentin (Neurontin) 600 mg PO BID [facility] Insulin Aspart (Novolog Flexpen) 6 unit SUBCUT TIDWM [facility] Insulin Glargine (Lantus Solostar (Pen)) 50 unit SUBCUT 2100 BERTHA Last Admin: 12/06/18 22:13 Dose: 50 unit Isosorbide Mononitrate (Imdur) 30 mg PO BID [facility] Lisinopril (Zestril) 2.5 mg PO DAILY [facility] Ondansetron HCl (Zofran) 4 mg IV Q4HR PRN PRN Reason: Nausea And Vomiting Last Admin: 07/29/19 17:46 Dose: 4 mg Pantoprazole Sodium (Protonix) 40 mg PO DAILY [facility] Promethazine HCl (Phenergan) 25 mg PO Q6HR PRN PRN Reason: Nausea Discontinued Medications Acetaminophen (Tylenol) 650 mg PO NOW ONE Stop: 12/06/18 20:54 Last Admin: 12/06/18 19:50 Dose: 650 mg Insulin Human NPH (Humulin N) 6 unit SUBCUT TIDWM [facility] Reevaluation(s) Reevaluation #1: After extensive lab and imaging workup with no obvious etiology of the pain, ambulation trial attempted, patient given a walker and instruction and could not put weight on his left lower extremity, stating the left anterior hip pain was excruciating Consultations Consultation #1: Discussion with on-call orthopedics, no need for immediate intervention, or procedure, but perhaps a pelvic MRI would be telling. Recommends admission to hospitalist Vital Signs - 8 hr 12/07/18 00:26 12/07/18 03:10 Temperature 98.3 F Pulse Rate 78 Respiratory Rate 20 Blood Pressure 149/77 H Pulse Oximetry 99 95 MDM - Extremity (Nontraumatic) Lab Data Result diagrams: 12/06/18 18:50 12/07/18 05:45 Lab Results 12/06/18 12/06/18 12/06/18 Range/Units 17:40 18:50 18:50 WBC 10.3 (4.5-11.0) X10^3/uL RBC 5.09 (4.5-5.9) X10^6/uL Hgb 14.1 (13.5-17.5) g/dL Hct 43.2 (41-53) % MCV 84.9 (80-100) fL MCH 27.8 (26-34) PG MCHC 32.7 (30-36) % RDW 15.6 H (11.6-14.8) % Plt Count 251 (150-400) X10^3/uL Neut % (Auto) 74.9 (50-75) % Lymph % (Auto) 16.7 L (25-40) % [place] % (Auto) 7.4 (3-14) % Eos % (Auto) 0.4 L (2-4) % Baso % (Auto) 0.6 (0-2) % Neut # (Auto) 7700 H (7098-7607) /uL Lymph # (Auto) 1700 (3359-1018) /uL [place] # (Auto) 800 (0-900) /uL Eos # (Auto) 0 (0-450) /uL Baso # (Auto) 100 (0-100) /uL ESR (0-15) MM/HR PT 11.4 (10.1-12.7) SECONDS INR 1.0 (0.9-1.3) Sodium (137-145) mmol/L Potassium (3.4-5.1) mmol/L Chloride (98-107) mmol/L Carbon Dioxide (22-32) mmol/L BUN (9-20) mg/dL Creatinine (0.66-1.25) mg/dL Estimated GFR (>60) mL/min BUN/Creatinine Ratio (6-22) Glucose (80-110) mg/dL Hemoglobin A1c (4.0-6.0) % Calcium (8.4-10.2) mg/dL C-Reactive Protein (<1.0) mg/dL Urine Color Yellow Urine Appearance Clear Urine pH 7.5 (4.5-8.0) Ur Specific [place] 1.010 (1.000-1.035) Urine Protein Negative (Negative) Urine Glucose (UA) Negative (Negative) g/dL Urine Ketones Negative (NEGATIVE) Urine Occult Blood Negative (Negative) Urine Nitrate Negative (Negative) Urine Bilirubin Negative (NEGATIVE) Urine Urobilinogen 1.0 (0.2) E.U./dL Ur Leukocyte Esterase Negative (NEGATIVE) Urine RBC None seen (0-5/HPF) Urine WBC 0-1/hpf (0-5/HPF) Ur Squamous Epith Cells 0-1 /hpf (0-5/HPF) Amorphous Sediment 1+ Urine Bacteria None seen (None) Ur Culture Indicated? Cult not indicated 12/06/18 12/06/18 12/06/18 Range/Units 18:50 18:50 18:50 WBC (4.5-11.0) X10^3/uL RBC (4.5-5.9) X10^6/uL Hgb (13.5-17.5) g/dL Hct (41-53) % MCV (80-100) fL MCH (26-34) PG MCHC (30-36) % RDW (11.6-14.8) % Plt Count (150-400) X10^3/uL Neut % (Auto) (50-75) % Lymph % (Auto) (25-40) % [place] % (Auto) (3-14) % Eos % (Auto) (2-4) % Baso % (Auto) (0-2) % Neut # (Auto) (6550-8958) /uL Lymph # (Auto) (3048-5128) /uL [place] # (Auto) (0-900) /uL Eos # (Auto) (0-450) /uL Baso # (Auto) (0-100) /uL ESR 7 (0-15) MM/HR PT (10.1-12.7) SECONDS INR (0.9-1.3) Sodium 137 (137-145) mmol/L Potassium 4.7 (3.4-5.1) mmol/L Chloride 100 (98-107) mmol/L Carbon Dioxide 25 (22-32) mmol/L BUN 15 (9-20) mg/dL Creatinine 0.80 (0.66-1.25) mg/dL Estimated GFR > 60.0 (>60) mL/min BUN/Creatinine Ratio 18.8 (6-22) Glucose 129 H (80-110) mg/dL Hemoglobin A1c (4.0-6.0) % Calcium 9.4 (8.4-10.2) mg/dL C-Reactive Protein 0.9 (<1.0) mg/dL Urine Color Urine Appearance Urine pH (4.5-8.0) Ur Specific [place] (1.000-1.035) Urine Protein (Negative) Urine Glucose (UA) (Negative) g/dL Urine Ketones (NEGATIVE) Urine Occult Blood (Negative) Urine Nitrate (Negative) Urine Bilirubin (NEGATIVE) Urine Urobilinogen (0.2) E.U./dL Ur Leukocyte Esterase (NEGATIVE) Urine RBC (0-5/HPF) Urine WBC (0-5/HPF) Ur Squamous Epith Cells (0-5/HPF) Amorphous Sediment Urine Bacteria (None) Ur Culture Indicated? 12/07/18 12/07/18 Range/Units 05:45 05:45 WBC (4.5-11.0) X10^3/uL RBC (4.5-5.9) X10^6/uL Hgb (13.5-17.5) g/dL Hct (41-53) % MCV (80-100) fL MCH (26-34) PG MCHC (30-36) % RDW (11.6-14.8) % Plt Count (150-400) X10^3/uL Neut % (Auto) (50-75) % Lymph % (Auto) (25-40) % [place] % (Auto) (3-14) % Eos % (Auto) (2-4) % Baso % (Auto) (0-2) % Neut # (Auto) (5491-3228) /uL Lymph # (Auto) (5068-4932) /uL [place] # (Auto) (0-900) /uL Eos # (Auto) (0-450) /uL Baso # (Auto) (0-100) /uL ESR (0-15) MM/HR PT (10.1-12.7) SECONDS INR (0.9-1.3) Sodium 138 (137-145) mmol/L Potassium 4.2 (3.4-5.1) mmol/L Chloride 102 (98-107) mmol/L Carbon Dioxide 26 (22-32) mmol/L BUN 13 (9-20) mg/dL Creatinine 1.00 (0.66-1.25) mg/dL Estimated GFR > 60.0 (>60) mL/min BUN/Creatinine Ratio 13.0 (6-22) Glucose 128 H (80-110) mg/dL Hemoglobin A1c 7.2 H (4.0-6.0) % Calcium 9.4 (8.4-10.2) mg/dL C-Reactive Protein (<1.0) mg/dL Urine Color Urine Appearance Urine pH (4.5-8.0) Ur Specific [place] (1.000-1.035) Urine Protein (Negative) Urine Glucose (UA) (Negative) g/dL Urine Ketones (NEGATIVE) Urine Occult Blood (Negative) Urine Nitrate (Negative) Urine Bilirubin (NEGATIVE) Urine Urobilinogen (0.2) E.U./dL Ur Leukocyte Esterase (NEGATIVE) Urine RBC (0-5/HPF) Urine WBC (0-5/HPF) Ur Squamous Epith Cells (0-5/HPF) Amorphous Sediment Urine Bacteria (None) Ur Culture Indicated? Point of Care Testing Glucose POC 141 [facility] decision making narrative: 73M with extensive cardiac history complains of severe L anterior hip pain in the absence of injury. Extensive workup for etiologies such as musculoskeletal, vascular, intrabdominal pathology, hernia, testicular torsion, considered. No obvious etiology, attempt to get PT for ambulation trial, they were gone for the day. Attempts at ambulation trial fail quickly, even with multiple assistants and a walker. He is a significant fall risk and will need hospitalization to further evaluate and characterize his pain as well as get PT consultation if need Discharge Plan Departure Patient Disposition: Admitted as Observation Clinical Impression: Acute hip pain Qualifiers: Laterality: left Qualified Code(s): M25.552 - Pain in left hip Discharge Date/Time: 12/06/18 20:45 Interventions: ED Discharge Assessment Last Done: 12/06/18 20:45 Admit Date/Time: 12/06/18 20:03 Admit Provider: Meenakshi Gamez
--- NOTE | 2018-12-06 18:44 | DI.US.S_ITS ---
PROCEDURE: US ARTERIAL DUPLEX LE LT INDICATIONS: SEVERE GROIN PAIN TECHNIQUE: Color and pulse Doppler interrogation was performed of the left lower extremity arterial system, with image documentation. COMPARISON: None. FINDINGS: Common femoral artery: 101.9 cm/sec, with anterograde flow. Deep femoral artery: 98.4 cm/sec, with anterograde flow. Proximal superficial femoral artery: 78.2 cm/sec, with anterograde flow. Left common femoral vein demonstrates no intraluminal filling defects. The Read-scale imaging description: Minimal scattered atherosclerotic plaque without significant luminal narrowing. No evidence for pseudoaneurysm formation or suspicious mass lesions. No abnormal fluid collections. IMPRESSION: Unremarkable arterial duplex study of the left lower extremity without evidence for pseudoaneurysms, or suspicious mass lesions. Preliminary findings were relayed to the ordering physician at time of study completion by the communications equipment supervisor. Dictated by: Josué Sweet M.D. on 12/06/2018 at 22:30 Approved by: Josué Sweet M.D. on 12/06/2018 at 23:25
--- NOTE | 2018-12-06 18:59 | PC.NURSE ---
Pt complained of severe nausea after zofran. While Nyla SIERRA was with him he became very nauseated, diaphoretic and short of breath. Dr. Herrera notified. EKG done. Hooked pt up to compliance monitor and carroll some blood from existing line. Dr. Herrera evaluated pt and US ordered. Pt more stable now, VSS, family in room.
[2018-12-06 19:00] LABS: Add Manual Diff / Slide Review NO; Basophils Absolute Auto 100 /uL (0-100); Basophils Percent Auto 0.6 % (0-2); Eosinophils Absolute Auto 0 /uL (0-450); Eosinophils Percent Auto 0.4 % (2-4); Hematocrit 43.2 % (41-53); Hemoglobin 14.1 g/dL (13.5-17.5); Lymphocytes Absolute Auto 1700 /uL (1100-4500); Lymphocytes Percent Auto 16.7 % (25-40); Mean Corpuscular HGB Conc 32.7 % (30-36); Mean Corpuscular Hemoglobin 27.8 PG (26-34); Mean Corpuscular Volume 84.9 fL (80-100); Monocytes Absolute Auto 800 /uL (0-900); Monocytes Percent Auto 7.4 % (3-14); Neutrophils Absolute Auto 7700 /uL (1500-7000); Neutrophils Percent Auto 74.9 % (50-75); Platelet Count 251 X10^3/uL (150-400); Red Blood Cell Count 5.09 X10^6/uL (4.5-5.9); Red Cell Distribution Width 15.6 % (11.6-14.8); White Blood Cell Count 10.3 X10^3/uL (4.5-11.0)
[2018-12-06 19:17] LABS: BUN Creatinine Ratio 18.8 (6-22); Blood Urea Nitrogen 15 mg/dL (9-20); Calcium 9.4 mg/dL (8.4-10.2); Carbon Dioxide 25 mmol/L (22-32); Chloride 100 mmol/L (98-107); Estimated Glomerular Filt Rate > 60.0 mL/min (>60); Glucose 129 mg/dL (80-110); Potassium 4.7 mmol/L (3.4-5.1); Sodium 137 mmol/L (137-145)
[2018-12-06 19:18] LABS: HEMOLYSIS 63 (0-50)
[2018-12-06 19:22] LABS: Prothrombin Time 11.4 SECONDS (10.1-12.7)
[2018-12-06] MEDS: ACETAMINOPHEN 325 MG TABLET 650 MG PO (19:50)
[2018-12-06 20:04] LABS: C-Reactive Protein Quant 0.9 mg/dL (<1.0)
[2018-12-06 20:10] LABS: Erythrocyte Sedimentation Rate 7 MM/HR (0-15)
[2018-12-06] MEDS: INSULIN GLARGINE 100 UNIT/ML 3ML PEN 50 UNIT SUBCUT (22:13)
--- NOTE | 2018-12-06 23:09 | PM.HP.1 ---
History of Present Illness Date Patient Seen: 12/06/18 Time Patient Seen: 22:30 Chief complaint: Lt hip pain and nausea Narrative: Jones Leger is a morbidly obese 73-year-old male with diabetes type 2, CAD, hypertension, history of kidney stones, and COPD who presents with a sudden onset history of being unable to ambulate and bear weight on his left hip. He states that this happened this morning when he was trying to get out of the shower. He stated 2 days ago he walked a little bit more than normal but did not give me the distance that he walked. He also has a complaint of nausea he states he has been more dizzy of late, denies fever, he has been sleeping with a fan on but denies having shortness of breath, he states he has been constipated and has urinary burning and nausea for 1 night. He states that he has been unable to bear weight on that left hip Um and he has numbing to his hands and arms which is chronic he states he is a diabetic with a hemoglobin A1c last taken of 7.1 and he bruises and bleeds easily due to taking Plavix. Patient History Medical History Aneurysm (Chronic) History of kidney stones (Chronic) Coronary artery disease (Acute) Diabetes (Acute) Hypertension (Acute) Surgical History History of coronary artery stent placement (Chronic) History of colon resection (Inactive) S/P CABG x 4 (Inactive) Family History (Updated 12/06/18 @ 23:18 by EVELINA Macedo) Mother Hypertension Father Hypertension Social History Smoking Status: Former smoker Family & Social History Family History Mother Hypertension Father Hypertension Safety & Behavioral: Feels Safe in Current Yes Environment Been Physically Hurt or No Threatened By a Person Suicidal Ideation Description None Suicide Plan Description No Plan Tobacco & Substance use: Smoking Status 30 year pack history, quit in 1987 ETOH Occassional Substance Use Type does not use Meds Home Medications Medication Instructions Recorded Confirmed Type Lantus U-100 Insulin 50 unit SQ QPM #0 07/08/16 12/06/18 History clopidogrel 75 mg PO DAILY #0 07/08/16 12/06/18 History fenofibrate 160 mg PO QPM #0 07/08/16 12/06/18 History fluticasone propionate 2 spray INTRANASAL DAILY PRN #0 07/08/16 12/06/18 History gabapentin [Neurontin] 600 mg PO BID #0 07/08/16 12/06/18 History insulin lispro [Humalog U-100 6 unit SQ TIDAC #0 07/08/16 12/06/18 History Insulin] nitroglycerin [Nitrostat] 0.4 mg SUBLINGUAL PRN PRN #0 07/08/16 12/06/18 History aspirin 81 mg PO QPM #0 07/09/16 12/06/18 History lisinopril 2.5 mg PO DAILY #0 07/09/16 12/06/18 History albuterol sulfate [ProAir HFA] 1 puff INHALATION Q4H PRN 06/03/18 12/06/18 History meloxicam 15 mg PO DAILY MDD pain 06/03/18 12/06/18 History acetaminophen 650 mg PO Q6H PRN 12/06/18 12/06/18 History cetirizine 10 mg PO DAILY PRN 12/06/18 12/06/18 History dulaglutide [Trulicity] 0.75 mg SUBCUT QWEEK 12/06/18 12/06/18 History isosorbide mononitrate 30 mg PO BID 12/06/18 12/06/18 History pantoprazole 40 mg PO DAILY 12/06/18 12/06/18 History Allergies Allergy/AdvReac Type Severity Reaction Status Date / Time glipizide [GLIPIZIDE] Allergy Intermediate Verified 12/06/18 13:49 niacin [NIACIN] Allergy Intermediate Verified 12/06/18 13:49 Uyhblso-Qlm-Ibm Reductase Allergy Intermediate Verified 12/06/18 13:49 Inhibitor [IHOZNEL-CBV-JXW REDUCTASE INHIBITOR] albiglutide [From Tanzeum] Allergy Unknown Verified 12/06/18 17:12 metoprolol Allergy Unknown Verified 12/06/18 17:12 Review of Systems Review of Systems All systems reviewed & are unremarkable except as noted in HPI and below Exam Vital Signs (past 8 hours): - 12/06/18 15:30 12/06/18 16:00 12/06/18 17:00 Temperature Pulse Rate 83 72 73 Respiratory Rate 19 Blood Pressure Blood Pressure [Right Arm] 126/68 114/57 L 120/56 L Pulse Oximetry 96 95 96 12/06/18 18:09 12/06/18 19:00 12/06/18 20:00 Temperature 98.1 F Pulse Rate 82 77 Respiratory Rate 11 L 15 Blood Pressure Blood Pressure [Right Arm] 170/87 H 138/68 Pulse Oximetry 95 96 12/06/18 21:48 Temperature 97.6 F Pulse Rate 73 Respiratory Rate 20 Blood Pressure 138/87 Blood Pressure [Right Arm] Pulse Oximetry 96 Oxygen Delivery Method Room Air Oxygen Flow Rate 0 Narrative Exam Narrative: Gen: Alert, oriented morbidly obese 69 y.o. male, appears uncomfortable HEENT: normocephalic, atraumatic, conjunctiva clear, sclera non-icteric, oral mucosa pink and moist Neck: supple, full ROM Resp: Lungs CTA, non-labored breathing CV: RRR, no murmur or rubs Abd: Distended, midly-tender, normoactive BTs Skin: no lesions or rashes, dry and intact Neuro: Alert and oriented X 4 w/no focal deficits Extremities: Appears to be uncomfortable when attempting to turn over on the gurney. Requires assist of 2 to ambulate on his feet Psyche: normal mood and affect. Objective Labs Result Diagrams: 12/06/18 18:50 12/06/18 18:50 Labs: Laboratory Results - last 24 hr 12/06/18 12/06/18 12/06/18 17:40 18:50 18:50 WBC 10.3 RBC 5.09 Hgb 14.1 Hct 43.2 MCV 84.9 MCH 27.8 MCHC 32.7 RDW 15.6 H Plt Count 251 Neut % (Auto) 74.9 Lymph % (Auto) 16.7 L [place] % (Auto) 7.4 Eos % (Auto) 0.4 L Baso % (Auto) 0.6 Neut # (Auto) 7700 H Lymph # (Auto) 1700 [place] # (Auto) 800 Eos # (Auto) 0 Baso # (Auto) 100 ESR PT 11.4 INR 1.0 Sodium Potassium Chloride Carbon Dioxide BUN Creatinine Estimated GFR BUN/Creatinine Ratio Glucose Calcium C-Reactive Protein Urine Color Yellow Urine Appearance Clear Urine pH 7.5 Ur Specific [place] 1.010 Urine Protein Negative Urine Glucose (UA) Negative Urine Ketones Negative Urine Occult Blood Negative Urine Nitrate Negative Urine Bilirubin Negative Urine Urobilinogen 1.0 Ur Leukocyte Esterase Negative Urine RBC None seen Urine WBC 0-1/hpf Ur Squamous Epith Cells 0-1 /hpf Amorphous Sediment 1+ Urine Bacteria None seen Ur Culture Indicated? Cult not indicated 12/06/18 12/06/18 12/06/18 18:50 18:50 18:50 WBC RBC Hgb Hct MCV MCH MCHC RDW Plt Count Neut % (Auto) Lymph % (Auto) [place] % (Auto) Eos % (Auto) Baso % (Auto) Neut # (Auto) Lymph # (Auto) [place] # (Auto) Eos # (Auto) Baso # (Auto) ESR 7 PT INR Sodium 137 Potassium 4.7 Chloride 100 Carbon Dioxide 25 BUN 15 Creatinine 0.80 Estimated GFR > 60.0 BUN/Creatinine Ratio 18.8 Glucose 129 H Calcium 9.4 C-Reactive Protein 0.9 Urine Color Urine Appearance Urine pH Ur Specific [place] Urine Protein Urine Glucose (UA) Urine Ketones Urine Occult Blood Urine Nitrate Urine Bilirubin Urine Urobilinogen Ur Leukocyte Esterase Urine RBC Urine WBC Ur Squamous Epith Cells Amorphous Sediment Urine Bacteria Ur Culture Indicated? Assessment & Plan Assessment & Plan narrative: Jones Leger will be placed into an observation bed for further evaluation and potential treatment of his inability to weight bear on his left hip. 1. Left hip pain, acute, present on admission Imaging studies have ruled out a DVT MRI with and without of the abdomen pelvis to further delineate any abnormalities of the lumbar spine, soft tissue injury not visualized on CT or xray PT eval. in the am 2. CAD, stable, POA Continue home dose of isosorbide mononitrate 30 mg po bid Continue ASA 81 mg po daily Continue home dose of clopidogrel 75 mg po daily 3. History of renal stones, stable present on admission CT scan identified multiple small renal calculi which appeared to not be obstructing 4. Diabetes type 2 moderately controlled POA He will be continued on his home doses of glargine and prandial insulin of humalog Last dose of Dulaglutide was the day of admission and won't be needed to be dosed again for one week. 5. Essential hypertension, stable, POA Continue home dose of lisinopril 2.5 mg po daily Patient is admitted as observation as his stay is anticipated not to exceed 2 midnights. FEN: Saline lock, carb control diet, BMP in the am VTE Prophylaxis: Enoxaparin 40 mg subQ once daily Disposition: unknown at this time Code status: Full Code Admission time: 75 minutes Meds reconciled: Yes Quality VTE Deep Vein Thrombosis/Pulmonary Embolism Present on Admission: No
--- NOTE | 2018-12-06 23:12 | P.HP_ITS ---
History of Present Illness Date Patient Seen: 12/06/18 Time Patient Seen: 22:30 Chief complaint: Lt hip pain and nausea Narrative: Jones Leger is a morbidly obese 73-year-old male with diabetes type 2, CAD, hypertension, history of kidney stones, and COPD who presents with a sudden onse t history of being unable to ambulate and bear weight on his left hip. He states that this happened this morning when he was trying to get out of the shower. He stated 2 days ago he walked a little bit more than normal but did not give me the distance that he walked. He also has a complaint of nausea he states he has been more dizzy of late, denies fever, he has been sleeping with a fan on but denies having shortness of breath, he states he has been constipated and has urinary burning and nausea for 1 night. He states that he has been unable to bear weight on that left hip Um and he has numbing to his hands and arms which is chronic he states he is a diabetic with a hemoglobin A1c last t aken of 7.1 and he bruises and bleeds easily due to taking Plavix. Patient History Medical History Aneurysm (Chronic) History of kidney stones (Chronic) Coronary artery disease (Acute) Diabetes (Acute) Hypertension (Acute) Surgical History History of coronary artery stent placement (Chronic) History of colon resection (Inactive) S/P CABG x 4 (Inactive) Family History (Updated 12/06/18 @ 23:18 by EVELINA Macedo) Mother Hypertension Father Hypertension Social History Smoking Status: Former smoker Family & Social History Family History Mother Hypertension Father Hypertension Safety & Behavioral: Feels Safe in Current Yes Environment Been Physically Hurt or No Threatened By a Person Suicidal Ideation Description None Suicide Plan Description No Plan Tobacco & Substance use: Smoking Status 30 year pack history, quit in 1987 ETOH Occassional Substance Use Type does not use Meds Home Medications Medication Instructions Recorded Confirmed Type Lantus U-100 Insulin 50 unit SQ QPM #0 07/08/16 12/06/18 History clopidogrel 75 mg PO DAILY #0 07/08/16 12/06/18 History fenofibrate 160 mg PO QPM #0 07/08/16 12/06/18 History fluticasone propionate 2 spray INTRANASAL DAILY PRN #0 07/08/16 12/06/18 History gabapentin [Neurontin] 600 mg PO BID #0 07/08/16 12/06/18 History insulin lispro [Humalog U-100 6 unit SQ TIDAC #0 07/08/16 12/06/18 History Insulin] nitroglycerin [Nitrostat] 0.4 mg SUBLINGUAL PRN PRN #0 07/08/16 12/06/18 History aspirin 81 mg PO QPM #0 07/09/16 12/06/18 History lisinopril 2.5 mg PO DAILY #0 07/09/16 12/06/18 History albuterol sulfate [ProAir HFA] 1 puff INHALATION Q4H PRN 06/03/18 12/06/18 History meloxicam 15 mg PO DAILY MDD pain 06/03/18 12/06/18 History acetaminophen 650 mg PO Q6H PRN 12/06/18 12/06/18 History cetirizine 10 mg PO DAILY PRN 12/06/18 12/06/18 History dulaglutide [Trulicity] 0.75 mg SUBCUT QWEEK 12/06/18 12/06/18 History isosorbide mononitrate 30 mg PO BID 12/06/18 12/06/18 History pantoprazole 40 mg PO DAILY 12/06/18 12/06/18 History Allergies Allergy/AdvReac Type Severity Reaction Status Date / Time glipizide [GLIPIZIDE] Allergy Intermediate Verified 12/06/18 13:49 niacin [NIACIN] Allergy Intermediate Verified 12/06/18 13:49 Desytje-Aqr-Kom Reductase Allergy Intermediate Verified 12/06/18 13:49 Inhibitor [MYIUTME-UAF-ASL REDUCTASE INHIBITOR] albiglutide [From Tanzeum] Allergy Unknown Verified 12/06/18 17:12 metoprolol Allergy Unknown Verified 12/06/18 17:12 Review of Systems Review of Systems All systems reviewed & are unremarkable except as noted in HPI and below Exam Vital Signs (past 8 hours): - 12/06/18 15:30 12/06/18 16:00 12/06/18 17:00 Temperature Pulse Rate 83 72 73 Respiratory Rate 19 Blood Pressure Blood Pressure [Right Arm] 126/68 114/57 L 120/56 L Pulse Oximetry 96 95 96 12/06/18 18:09 12/06/18 19:00 12/06/18 20:00 Temperature 98.1 F Pulse Rate 82 77 Respiratory Rate 11 L 15 Blood Pressure Blood Pressure [Right Arm] 170/87 H 138/68 Pulse Oximetry 95 96 12/06/18 21:48 Temperature 97.6 F Pulse Rate 73 Respiratory Rate 20 Blood Pressure 138/87 Blood Pressure [Right Arm] Pulse Oximetry 96 Oxygen Delivery Method Room Air Oxygen Flow Rate 0 Narrative Exam Narrative: Gen: Alert, oriented morbidly obese 69 y.o. male, appears uncomfortable HEENT: normocephalic, atraumatic, conjunctiva clear, sclera non-icteric, oral mucosa pink and moist Neck: supple, full ROM Resp: Lungs CTA, non-labored breathing CV: RRR, no murmur or rubs Abd: Distended, midly-tender, normoactive BTs Skin: no lesions or rashes, dry and intact Neuro: Alert and oriented X 4 w/no focal deficits Extremities: Appears to be uncomfortable when attempting to turn over on the gurney. Requires assist of 2 to ambulate on his feet Psyche: normal mood and affect. Objective Labs Result Diagrams: 12/06/18 18:50 12/06/18 18:50 Labs: Laboratory Results - last 24 hr 12/06/18 12/06/18 12/06/18 17:40 18:50 18:50 WBC 10.3 RBC 5.09 Hgb 14.1 Hct 43.2 MCV 84.9 MCH 27.8 MCHC 32.7 RDW 15.6 H Plt Count 251 Neut % (Auto) 74.9 Lymph % (Auto) 16.7 L [place] % (Auto) 7.4 Eos % (Auto) 0.4 L Baso % (Auto) 0.6 Neut # (Auto) 7700 H Lymph # (Auto) 1700 [place] # (Auto) 800 Eos # (Auto) 0 Baso # (Auto) 100 ESR PT 11.4 INR 1.0 Sodium Potassium Chloride Carbon Dioxide BUN Creatinine Estimated GFR BUN/Creatinine Ratio Glucose Calcium C-Reactive Protein Urine Color Yellow Urine Appearance Clear Urine pH 7.5 Ur Specific [place] 1.010 Urine Protein Negative Urine Glucose (UA) Negative Urine Ketones Negative Urine Occult Blood Negative Urine Nitrate Negative Urine Bilirubin Negative Urine Urobilinogen 1.0 Ur Leukocyte Esterase Negative Urine RBC None seen Urine WBC 0-1/hpf Ur Squamous Epith Cells 0-1 /hpf Amorphous Sediment 1+ Urine Bacteria None seen Ur Culture Indicated? Cult not indicated 12/06/18 12/06/18 12/06/18 18:50 18:50 18:50 WBC RBC Hgb Hct MCV MCH MCHC RDW Plt Count Neut % (Auto) Lymph % (Auto) [place] % (Auto) Eos % (Auto) Baso % (Auto) Neut # (Auto) Lymph # (Auto) [place] # (Auto) Eos # (Auto) Baso # (Auto) ESR 7 PT INR Sodium 137 Potassium 4.7 Chloride 100 Carbon Dioxide 25 BUN 15 Creatinine 0.80 Estimated GFR > 60.0 BUN/Creatinine Ratio 18.8 Glucose 129 H Calcium 9.4 C-Reactive Protein 0.9 Urine Color Urine Appearance Urine pH Ur Specific [place] Urine Protein Urine Glucose (UA) Urine Ketones Urine Occult Blood Urine Nitrate Urine Bilirubin Urine Urobilinogen Ur Leukocyte Esterase Urine RBC Urine WBC Ur Squamous Epith Cells Amorphous Sediment Urine Bacteria Ur Culture Indicated? Assessment & Plan Assessment & Plan narrative: Jones Leger will be placed into an observation bed for further evaluation and potential treatment of his inability to weight bear on his left hip. 1. Left hip pain, acute, present on admission * Imaging studies have ruled out a DVT * MRI with and without of the abdomen pelvis to further delineate any abnormalities of the lumbar spine, soft tissue injury not visualized on CT or xray * PT eval. in the am 2. CAD, stable, POA * Continue home dose of isosorbide mononitrate 30 mg po bid * Continue ASA 81 mg po daily * Continue home dose of clopidogrel 75 mg po daily 3. History of renal stones, stable present on admission * CT scan identified multiple small renal calculi which appeared to not be obs tructing 4. Diabetes type 2 moderately controlled POA * He will be continued on his home doses of glargine and prandial insulin of humalog * Last dose of Dulaglutide was the day of admission and won't be needed to be dosed again for one week. 5. Essential hypertension, stable, POA * Continue home dose of lisinopril 2.5 mg po daily Patient is admitted as observation as his stay is anticipated not to exceed 2 midnights. FEN: Saline lock, carb control diet, BMP in the am VTE Prophylaxis: Enoxaparin 40 mg subQ once daily Disposition: unknown at this time Code status: Full Code Admission time: 75 minutes Meds reconciled: Yes Quality VTE Deep Vein Thrombosis/Pulmonary Embolism Present on Admission: No
[2018-12-07] VITALS (10 sets, daily range): BP systolic 105–150; BP diastolic 51–86; PULSE 67–78; RESP 16–20; TEMP 36.6–36.9; O2SAT 92–99
[2018-12-07] MEDS: ACETAMINOPHEN 325 MG TABLET 650 MG PO ×2 (00:24→08:14)
--- NOTE | 2018-12-07 01:25 | PC.NURSE ---
Shift note: Received pt from evening shift. Pt AxOx4, VSS. Assessment notable for c/o mild nausea that is made worse by IV Zofran, EVELINA Gamez ordered 25mg PO Phenergan but it is not available in night pharmacy. Pt c/o 3/10 pain numerically in left hip and indicates flank to just below hip, denies having this type of pain before and states that it is made worse if he is on his right side and when ambulating. Pt ambulates SBA with FWW, gait unsteady d/t pain. Pt reports that narcotics cause him nausea and preferred to use APAP, 650mg PO given per JUL. Pt is a moderate fall risk d/t pain in leg with ambulation, call light in reach, pt demonstrated appropriate use.
[2018-12-07 06:23] LABS: Blood Urea Nitrogen 13 mg/dL (9-20); Calcium 9.4 mg/dL (8.4-10.2); Carbon Dioxide 26 mmol/L (22-32); Chloride 102 mmol/L (98-107); Estimated Glomerular Filt Rate > 60.0 mL/min (>60); Glucose 128 mg/dL (80-110); HEMOLYSIS < 15 (0-50); Potassium 4.2 mmol/L (3.4-5.1); Sodium 138 mmol/L (137-145)
[2018-12-07 06:39] LABS: Hemoglobin A1C% w Est Avg Glu 7.2 % (4.0-6.0)
[2018-12-07] MEDS: SODIUM CHLORIDE 0.9% FLUSH 10 ML IV ×3 (08:10→21:23)
[2018-12-07] MEDS: INSULIN ASPART 100 UNIT/ML INSULN PEN 6 UNIT SUBCUT ×3 (08:10→18:35)
[2018-12-07] MEDS: LISINOPRIL 5 MG TABLET 2.5 MG PO (08:12)
[2018-12-07 08:13] LABS: Add Manual Diff / Slide Review NO; Basophils Absolute Auto 0 /uL (0-100); Basophils Percent Auto 0.3 % (0-2); Eosinophils Absolute Auto 100 /uL (0-450); Eosinophils Percent Auto 0.7 % (2-4); Hematocrit 41.4 % (41-53); Hemoglobin 13.4 g/dL (13.5-17.5); Lymphocytes Absolute Auto 1800 /uL (1100-4500); Lymphocytes Percent Auto 20.8 % (25-40); Mean Corpuscular HGB Conc 32.4 % (30-36); Mean Corpuscular Hemoglobin 27.5 PG (26-34); Mean Corpuscular Volume 84.7 fL (80-100); Monocytes Absolute Auto 900 /uL (0-900); Monocytes Percent Auto 9.8 % (3-14); Neutrophils Absolute Auto 6000 /uL (1500-7000); Neutrophils Percent Auto 68.4 % (50-75); Platelet Count 228 X10^3/uL (150-400); Red Blood Cell Count 4.88 X10^6/uL (4.5-5.9); Red Cell Distribution Width 15.6 % (11.6-14.8); White Blood Cell Count 8.8 X10^3/uL (4.5-11.0)
[2018-12-07] MEDS: GABAPENTIN 300 MG CAPSULE 600 MG PO ×2 (08:14→21:22)
[2018-12-07] MEDS: ISOSORBIDE MONONITRATE ER 30 MG TABLET PO ×2 (08:15→21:23)
[2018-12-07] MEDS: PANTOPRAZOLE 40 MG TABLET PO (08:15)
[2018-12-07] MEDS: CLOPIDOGREL 75 MG TABLET PO (08:15)
[2018-12-07] MEDS: ENOXAPARIN 40 MG/0.4 ML SYRINGE SUBCUT (08:17)
--- NOTE | 2018-12-07 09:10 | CM.DANOTE ---
DCP: Case received, EMR reviewed and met with patient. Introduced self and role. Was able to obtain some baseline health information from patient. DCP assessment completed with information currently available. Patient is a 73 year old male who admitted yesterday evening to the care of the hospitalist team. PCP: Dr. Bang. Payer: confirmed: Medicare/[employer]. Patient came to the hospital via ambulance secondary to left hip pain. Patient had also been complaining of left flank back pain as well. He has history of COPD, kidney stones as well. Patient had also come in with complaints of nausea. Met briefly with patient. He resides in [place] with his life partner, Sabrina Wong. Confirmed that his daughter, Analisa, is his POA, and he mentioned that she also resides in [place]. He stated that he is independent at home, driving. Confirmed that his primary provider is Dr. Bang. P: DCP to continue to follow closely. Patient should be able to go home when medically stable. Lyubov Lofton RN/Securities Dealer
[2018-12-07] MEDS: KETOROLAC 15 MG/ML VIAL IV (09:37)
--- NOTE | 2018-12-07 11:12 | PC.NURSE ---
Addendum entered by Lashay Kimball R.N. 12/07/18 15:48: Toradol not effective, decreased pt's pain from 10-8/10. Prn Gordon given with prn Phenergan at 1205 to prevent GI upset. Upon reassessment, pain did not change, pt denied nausea, light-headedness. Spoke with Dr. Wallace at 1450, try Oxycodone po prn 10mg given at 1500, await Dr. Arvizu consult. Pt updated with plan. Pt spent most of afternoon in bed lying on left side per his preference. OOB with PT, pain increased to 10/10 per pt. Original Note: Day Shift- Pt reports 10/10 pain to left hip, upper outer thigh, pt trying to frequently find a comfortable position. Tylenol po prn given at 0815 with little effect. pt was sitting in chair at bedside and rubbing onto left hip outer thigh area, this law writer asking if he is feeling muscle pain. Pt states maybe. Then voices, maybe it's my sciatica acting up. Spoke with Dr. Wallace and made aware that pt is trying to avoid narcotics as they cause him GI upset, and new order rec'd. Toradol 15mg IV X1 given at 0940.
--- NOTE | 2018-12-07 11:56 | PT.IIE ---
Surgical History (Last Reviewed 12/06/18 @ 23:29 by EVELINA Macedo) History of coronary artery stent placement (Chronic) History of colon resection (Inactive) S/P CABG x 4 (Inactive) Medical History (Last Reviewed 12/06/18 @ 23:29 by EVELINA Macedo) Aneurysm (Chronic) History of kidney stones (Chronic) Coronary artery disease (Acute) Diabetes (Acute) Hypertension (Acute) Physical Therapy Inpatient Evaluation/Re-Eval M1 PT/OT-IP Prior Functional Status Start: 12/07/18 14:46 Freq: NEEDED Status: Active Protocol: Document 12/07/18 14:07 AB (Rec: 12/07/18 15:21 AB [id number]) Medical Review Prior Functional Status Medical History Reviewed Yes Communication pt able to make need known Mobility and Gait pt stated that he is independent with all mobilities and ambulation without AD Social History Household Members spouse Living Arrangements House Number of Floors (Floors) One Floor Number of Stairs To Enter/Railing? has a ramp to enter Home Environment Standard Height Toilet Walk in Shower Home Equipment Hand Held Shower Grab Bars In Shower M2 PT-IP Current Condition Start: 12/07/18 14:46 Freq: NEEDED Status: Active Protocol: Document 12/07/18 14:07 AB (Rec: 12/07/18 15:21 AB [id number]) Physical Therapy Current Condition Current Condition Evaluation Date 12/07/18 Treatment Diagnosis L hip pain; difficulty in walking Onset Date 12/06/18 M3 PT-IP Subjective Start: 12/07/18 14:46 Freq: NEEDED Status: Active Protocol: Document 12/07/18 14:07 AB (Rec: 12/07/18 15:21 AB [id number]) Subjective Physical Therapy Visit Type Type Initial Evaluation Visit Start Time 11:56 Visit Stop Time 14:37 Total Visit Minutes 39 Notes pt seen for split visits 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 of 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 0 Physical Therapy Visit Comments Patient Comments pt agreeable to do PT Therapy Pain Assessment Pain When Pain Assessed At Rest Pain Present Pain Present Pain Reported Location Left Hip Intensity 1 Scale Used 15/10 with mobility Description Radiating Pain Management Techniques Apply Cold Modification of Treatment Re-positioning Timing of Activity with Medications M4 PT-IP Mobility and Gait Start: 12/07/18 14:46 Freq: NEEDED Status: Active Protocol: Document 12/07/18 14:07 AB (Rec: 12/07/18 15:21 AB [id number]) PT-Bed Mobility Assessment Supine to Sit Supine to Sit Standby Assistance Sit to Supine Sit to Supine Standby Assistance Scooting Scooting to Edge of Bed Standby Assistance PT-Transfer Assessment Sit to and From Stand Sit to and from Stand Minimal Assistance 1 Person Assistance Use of Upper Extremities Equipment Transfer Assistive Device Gait Belt Front Wheeled Walker Orthotic/Prosthetic Devices or Brace: No Gait Assessment Gait Gait Assistance Required: Minimum Assistance Distance (Feet) 25 Able to Maintain Weight Bearing Status Yes During Gait Assistive Devices Assistive Device Gait Belt Front Wheeled Walker Orthotic/Prosthetic Devices or Brace: No Gait Deviations General Gait Pattern Antalgic Decreased Stride Length Decreased Feet Clearance Factors Limiting Gait Function Factors Limiting Gait Function Decreased Activity Tolerance Decreased Strength Limited Range of Motion Pain Poor Balance Comments Gait Comments pt completed sit to stand from EOB min A and ambulated ~ 25 ft using FWW min A and cues. pt with (+) L knee buckling during ambulation with c/o increase pain. pt c/o increase pain towards ends of ambulation. bed positioning completed and ice pack provided. PT-Balance Assessment Sitting Balance and Reactions Static Sitting Balance Ability Good Dynamic Sitting Balance Ability Good Standing Balance and Reactions Static Standing Balance Ability Fair Dynamic Standing Balance Ability Poor Device Used FWW M5 PT-IP Objective Assessments Start: 12/07/18 14:46 Freq: NEEDED Status: Active Protocol: Document 12/07/18 14:07 AB (Rec: 12/07/18 15:21 AB [id number]) Orientation Orientation/Cognition Level of Alertness Alert Orientation Name Age Place Situation Language Function Ability No Deficits Noted Safety Awareness Understands Safety Issues Memory Description No Deficits Noted Gross Range of Motion Lower Extremity ROM Assessment Within Functional Limits Impairments tightness on LLE during hip and knee flexion Strength Lower Extremity Strength Assessment Left Impaired Knee 3+/5 Coordination Assessment Gross Coordination Gross Coordination WNL Sensation Assessment Sensation Gross Sensation WNL Muscle Tone Muscle Tone WNL Yes Other Assessments Other Other Assessments pt c/o L lateral hip pain radiated to lateral knee. imaging results were unremarkable. Assessed pt for trochanteric bursitis and IT band tightness. (+) pain/ tenderness on L hip/greater trochanter area and lateral thigh(IT band) to. Attempted Enriqueta's test but pt unable to tolerate with pain radiating to knee during test. M6 PT-IP Treatment Start: 12/07/18 14:46 Freq: NEEDED Status: Active Protocol: Document 12/07/18 14:07 AB (Rec: 12/07/18 15:21 AB [id number]) Physical Therapy Treatment Education Education Provided Safety Other Treatments Other Treatment Performed conducted MFR on L IT band and IT band stretching but pt unable to tolerate much. only tolerated ~ 10 to 20 sec of stretching x 2 reps. M7 PT-IP Assessment and Plan Start: 12/07/18 14:46 Freq: NEEDED Status: Active Protocol: Document 12/07/18 14:07 AB (Rec: 12/07/18 15:21 AB [id number]) PT Summary Assessment and Plan Potential Rehabilitation Potential Fair Status of Condition at Evaluation Evolving Summary Impairments Pain ROM Strength Balance Coordination Bed Mobility Transfers Gait Activity Tolerance Assessment Summary pt c/o increase pain L lateral hip down to L knee during mobility. Conducted palpation and pt c/o pain/tenderness with wincing on L trochanteric are and IT band down to L knee. informed nurse regarding possible bursitis and stated that Dr. Wallace also thinks it might be bursitis but will have Dr. Arvizu assess. Talked to nurse regarding possible anti- inflammatory medication and nurse will ask the doctor. will follow on pt. d/c plan depending on pain control and progress but at this time, pt is requiring min A and unable to tolerate much ambulation using FWW. Goals Bed Mobility Goal Standby Assistance Transfer Goal Standby Assistance Front Wheeled Walker Gait Goal Standby Assistance Front Wheel Walker Gait Distance 200 Days to Meet Goals 10 Frequency of Treatment Frequency Of Treatment Once a Day Treatment Plan Physical Therapy Treatment Plan Bed Mobility Training Transfer Training Gait Training Therapeutic Exercise Balance Retraining Discharge Planning Hot or Cold Pack Neuromuscular Re-ed Coordination Retraining Manual Therapy Other Recommendations and Next Treatment IT band stretching, myofascial Focus realease; ambulation Recommendations To Nursing Amount of Assist Needed 1 Person Assist Discharge Recommendations PT Discharge Recommendations Home with 24/7 Assist SNF Rehab Outpatient PT Other Discharge Recommendations depending on progress: SNF vs home with 24/7 and outpt PT Equipment Needed for Home Before FWW Discharge
[2018-12-07] MEDS: HYDROCODONE/ACET 5/325 TABLET 1 TAB PO (12:04)
[2018-12-07] MEDS: PROMETHAZINE 25 MG TABLET PO (12:04)
--- NOTE | 2018-12-07 14:39 | PM.PN.1 ---
Subjective Date Patient Seen: 12/07/18 Interval history: Patient is a 73-year-old male who was admitted to the hospital for left hip pain. He reports he was getting out of the shower and developed acute onset of left hip pain. He was unable to stand or ambulate because of the pain. Patient was seen and evaluated in the emergency department. CT of the pelvis was obtained which showed no evidence of fracture. His white count is normal, he is afebrile, sed rate is normal and his CRP is normal as well. Patient continues to have significant pain over the left hip it is tender to palpation. There is no warmth or erythema. Exam Vital Signs (past 8 hours): - 12/07/18 07:15 12/07/18 07:50 12/07/18 10:51 Temperature 97.9 F 98.2 F Pulse Rate 74 77 Respiratory Rate 16 16 Blood Pressure 150/86 H 111/69 Pulse Oximetry 94 96 95 Oxygen Delivery Method Room Air Oxygen Flow Rate 0 Narrative Exam Narrative: Elderly gentleman uncomfortable lying in bed Lungs clear to auscultation Cardiac exam: Regular rate and rhythm normal S1-S2 Left hip: Internal external rotation of the hip reveals no evidence of pain Straight leg raise is on the left it causes pain. Palpation over the left greater reggie her is somewhat tender to palpation. There is some swelling in the area. There is tenderness to palpation over the swelling near the greater trochanter. There is no erythema Objective Labs Result Diagrams: 12/07/18 05:45 12/07/18 05:45 Labs: Laboratory Results - last 24 hr 12/06/18 12/06/18 12/06/18 17:40 18:50 18:50 WBC 10.3 RBC 5.09 Hgb 14.1 Hct 43.2 MCV 84.9 MCH 27.8 MCHC 32.7 RDW 15.6 H Plt Count 251 Neut % (Auto) 74.9 Lymph % (Auto) 16.7 L [place] % (Auto) 7.4 Eos % (Auto) 0.4 L Baso % (Auto) 0.6 Neut # (Auto) 7700 H Lymph # (Auto) 1700 [place] # (Auto) 800 Eos # (Auto) 0 Baso # (Auto) 100 ESR PT 11.4 INR 1.0 Sodium Potassium Chloride Carbon Dioxide BUN Creatinine Estimated GFR BUN/Creatinine Ratio Glucose Hemoglobin A1c Calcium C-Reactive Protein Urine Color Yellow Urine Appearance Clear Urine pH 7.5 Ur Specific [place] 1.010 Urine Protein Negative Urine Glucose (UA) Negative Urine Ketones Negative Urine Occult Blood Negative Urine Nitrate Negative Urine Bilirubin Negative Urine Urobilinogen 1.0 Ur Leukocyte Esterase Negative Urine RBC None seen Urine WBC 0-1/hpf Ur Squamous Epith Cells 0-1 /hpf Amorphous Sediment 1+ Urine Bacteria None seen Ur Culture Indicated? Cult not indicated 12/06/18 12/06/18 12/06/18 18:50 18:50 18:50 WBC RBC Hgb Hct MCV MCH MCHC RDW Plt Count Neut % (Auto) Lymph % (Auto) [place] % (Auto) Eos % (Auto) Baso % (Auto) Neut # (Auto) Lymph # (Auto) [place] # (Auto) Eos # (Auto) Baso # (Auto) ESR 7 PT INR Sodium 137 Potassium 4.7 Chloride 100 Carbon Dioxide 25 BUN 15 Creatinine 0.80 Estimated GFR > 60.0 BUN/Creatinine Ratio 18.8 Glucose 129 H Hemoglobin A1c Calcium 9.4 C-Reactive Protein 0.9 Urine Color Urine Appearance Urine pH Ur Specific [place] Urine Protein Urine Glucose (UA) Urine Ketones Urine Occult Blood Urine Nitrate Urine Bilirubin Urine Urobilinogen Ur Leukocyte Esterase Urine RBC Urine WBC Ur Squamous Epith Cells Amorphous Sediment Urine Bacteria Ur Culture Indicated? 12/07/18 12/07/18 12/07/18 05:45 05:45 05:45 WBC 8.8 RBC 4.88 Hgb 13.4 L Hct 41.4 MCV 84.7 MCH 27.5 MCHC 32.4 RDW 15.6 H Plt Count 228 Neut % (Auto) 68.4 Lymph % (Auto) 20.8 L [place] % (Auto) 9.8 Eos % (Auto) 0.7 L Baso % (Auto) 0.3 Neut # (Auto) 6000 Lymph # (Auto) 1800 [place] # (Auto) 900 Eos # (Auto) 100 Baso # (Auto) 0 ESR PT INR Sodium 138 Potassium 4.2 Chloride 102 Carbon Dioxide 26 BUN 13 Creatinine 1.00 Estimated GFR > 60.0 BUN/Creatinine Ratio 13.0 Glucose 128 H Hemoglobin A1c 7.2 H Calcium 9.4 C-Reactive Protein Urine Color Urine Appearance Urine pH Ur Specific [place] Urine Protein Urine Glucose (UA) Urine Ketones Urine Occult Blood Urine Nitrate Urine Bilirubin Urine Urobilinogen Ur Leukocyte Esterase Urine RBC Urine WBC Ur Squamous Epith Cells Amorphous Sediment Urine Bacteria Ur Culture Indicated? Assessment & Plan Assessment & Plan narrative: 1. 73-year-old male admitted with left hip pain. Etiology unclear. X-ray reveals no evidence of fracture. Discussed case with Dr. Arvizu who will evaluate the patient. For now will start him on Tylenol 975 t.i.d.. Will continue with oxycodone 10 mg Q 4 as needed. Will continue with PT as well. Will defer MRI until evaluation by Dr. Arvizu. 2. Hypertension will continue current treatment 3. Type 2 diabetes continue basal bolus insulin 4. GERD continue Protonix 5. coronary artery disease will continue usual medication. Quality VTE Deep Vein Thrombosis/Pulmonary Embolism Present on Admission: No
[2018-12-07] MEDS: OXYCODONE IR 10 MG TABLET PO ×2 (14:55→18:53)
[2018-12-07] MEDS: ASPIRIN EC 81 MG TABLET PO (18:33)
[2018-12-07] MEDS: FENOFIBRATE 160 MG TABLET PO (18:35)
--- NOTE | 2018-12-07 18:47 | PM.CN ---
History of Present Illness Date Patient Seen: 12/07/18 Time Patient Seen: 18:48 Chief complaint: Lt hip pain and nausea Reason for consult: Left hip pain Requesting provider: Brenna Wallace Narrative: The patient is a 73-year-old man who has asked to see for severe left hip and upper thigh pain. The patient reports that he started having pain about 2 days ago. He denies any specific injury. He did go to the air show where he did quite a bit of walking which may have exacerbated his pain. He denies any previous problems with his hip. The pain is is in the groin and lateral aspect of the thumb of left hip. The patient was seen emergency room yesterday and had a lot of difficulty bearing weight and thus was admitted to the hospital. At that time he had no pain with internal-external rotation of the hip. He did have a lot of pain when he tried to actively extend the hip but not much discomfort with passive extension. He reports that actually feels much more comfortable to lay on his side on the affected hip with the hip slightly flexed. He denies any fever chills or night sweats. He is not having any pain or issues anywhere else. [facility] Medical History Aneurysm (Chronic) History of kidney stones (Chronic) Coronary artery disease (Acute) Diabetes (Acute) Hypertension (Acute) Surgical History History of coronary artery stent placement (Chronic) History of colon resection (Inactive) S/P CABG x 4 (Inactive) Family History Mother Hypertension Father Hypertension Social History household members: spouse Smoking Status: Former smoker Family History Mother Hypertension Father Hypertension Social History household members: spouse Smoking Status: Former smoker Meds Home Medications Medication Instructions Recorded Confirmed Type Lantus U-100 Insulin 50 unit SQ QPM #0 07/08/16 12/06/18 History clopidogrel 75 mg PO DAILY #0 07/08/16 12/06/18 History fenofibrate 160 mg PO QPM #0 07/08/16 12/06/18 History fluticasone propionate 2 spray INTRANASAL DAILY PRN #0 07/08/16 12/06/18 History gabapentin [Neurontin] 600 mg PO BID #0 07/08/16 12/06/18 History insulin lispro [Humalog U-100 6 unit SQ TIDAC #0 07/08/16 12/06/18 History Insulin] nitroglycerin [Nitrostat] 0.4 mg SUBLINGUAL PRN PRN #0 07/08/16 12/06/18 History aspirin 81 mg PO QPM #0 07/09/16 12/06/18 History lisinopril 2.5 mg PO DAILY #0 07/09/16 12/06/18 History albuterol sulfate [ProAir HFA] 1 puff INHALATION Q4H PRN 06/03/18 12/06/18 History meloxicam 15 mg PO DAILY MDD pain 06/03/18 12/06/18 History acetaminophen 650 mg PO Q6H PRN 12/06/18 12/06/18 History cetirizine 10 mg PO DAILY PRN 12/06/18 12/06/18 History dulaglutide [Trulicity] 0.75 mg SUBCUT QWEEK 12/06/18 12/06/18 History isosorbide mononitrate 30 mg PO BID 12/06/18 12/06/18 History pantoprazole 40 mg PO DAILY 12/06/18 12/06/18 History Allergies Allergy/AdvReac Type Severity Reaction Status Date / Time glipizide [GLIPIZIDE] Allergy Intermediate Verified 12/06/18 13:49 niacin [NIACIN] Allergy Intermediate Verified 12/06/18 13:49 Hccsbzo-Dge-Trp Reductase Allergy Intermediate Verified 12/06/18 13:49 Inhibitor [NYGHJKQ-MIJ-OSE REDUCTASE INHIBITOR] albiglutide [From Tanzeum] Allergy Unknown Verified 12/06/18 17:12 metoprolol Allergy Unknown Verified 12/06/18 17:12 Review of Systems Constitutional Constitutional: Reports system reviewed and no additional complaints, except as documented Exam Vital Signs (past 8 hours): - 12/07/18 10:51 12/07/18 16:00 12/07/18 16:37 Temperature 98.2 F 98.5 F Pulse Rate 77 73 Respiratory Rate 16 16 Blood Pressure 111/69 110/51 L Pulse Oximetry 95 95 96 Oxygen Delivery Method Room Air Oxygen Flow Rate 0 Const General: cooperative and healthy appearing Orientation: alert and oriented x3 Other: The patient is quite comfortable as long as he is laying on his left side with the hip slightly flexed. He starts to have pain if he lays flat or tries to extend the hip actively. Neuro Other: Neuro exam shows 5/5 strength throughout all muscle groups of the upper lower extremity except for flexion and abduction of the left hip which appears to be decreased primarily by pain. Sensation is intact to light touch throughout all dermatomes of the upper and lower extremity. Extrem Other: There is no specific swelling erythema or warmth of the hip or lower extremities. The patient does have tenderness to palpation over the lateral hip and somewhat over the greater trochanter. He points a little bit towards his thumb lateral groin and in the upper thigh area as the area where he is having pain. Active extension of the hip causes significant pain and is difficult for the patient to do. I am able to flex the hip and densely internal-external rotate without much discomfort. Objective Labs Result Diagrams: 12/07/18 05:45 12/07/18 05:45 Labs: Laboratory Results - last 24 hr 12/06/18 12/06/18 12/06/18 18:50 18:50 18:50 WBC 10.3 RBC 5.09 Hgb 14.1 Hct 43.2 MCV 84.9 MCH 27.8 MCHC 32.7 RDW 15.6 H Plt Count 251 Neut % (Auto) 74.9 Lymph % (Auto) 16.7 L [place] % (Auto) 7.4 Eos % (Auto) 0.4 L Baso % (Auto) 0.6 Neut # (Auto) 7700 H Lymph # (Auto) 1700 [place] # (Auto) 800 Eos # (Auto) 0 Baso # (Auto) 100 ESR PT 11.4 INR 1.0 Sodium 137 Potassium 4.7 Chloride 100 Carbon Dioxide 25 BUN 15 Creatinine 0.80 Estimated GFR > 60.0 BUN/Creatinine Ratio 18.8 Glucose 129 H Hemoglobin A1c Calcium 9.4 C-Reactive Protein 12/06/18 12/06/18 12/07/18 18:50 18:50 05:45 WBC RBC Hgb Hct MCV MCH MCHC RDW Plt Count Neut % (Auto) Lymph % (Auto) [place] % (Auto) Eos % (Auto) Baso % (Auto) Neut # (Auto) Lymph # (Auto) [place] # (Auto) Eos # (Auto) Baso # (Auto) ESR 7 PT INR Sodium 138 Potassium 4.2 Chloride 102 Carbon Dioxide 26 BUN 13 Creatinine 1.00 Estimated GFR > 60.0 BUN/Creatinine Ratio 13.0 Glucose 128 H Hemoglobin A1c Calcium 9.4 C-Reactive Protein 0.9 12/07/18 12/07/18 05:45 05:45 WBC 8.8 RBC 4.88 Hgb 13.4 L Hct 41.4 MCV 84.7 MCH 27.5 MCHC 32.4 RDW 15.6 H Plt Count 228 Neut % (Auto) 68.4 Lymph % (Auto) 20.8 L [place] % (Auto) 9.8 Eos % (Auto) 0.7 L Baso % (Auto) 0.3 Neut # (Auto) 6000 Lymph # (Auto) 1800 [place] # (Auto) 900 Eos # (Auto) 100 Baso # (Auto) 0 ESR PT INR Sodium Potassium Chloride Carbon Dioxide BUN Creatinine Estimated GFR BUN/Creatinine Ratio Glucose Hemoglobin A1c 7.2 H Calcium C-Reactive Protein Assessment & Plan Assessment & Plan narrative: Acute left hip pain of uncertain etiology. The patient's imaging studies including CT scan are unremarkable for any obvious hip pathology. He does have some groin pain and tenderness over the greater trochanter but actually is quite comfortable laying directly on the hip which would not be consistent with greater trochanteric bursitis. There is really not much pain with internal-external rotation of the hip. There is no indication that there is anything infectious based on his labs and symptoms. It is possible the symptoms could be referred from an L3-4 disc herniation and his back given their somewhat unusual presentation. I do not really see a clear indication of hip pathology at this point. I would recommend an MRI scan of the hip and pelvis which will rule out any more unusual causes such as occult infection, fracture or tumor. If this study is negative and his pain continues then evaluation of the lumbar spine would be indicated. I will continue to follow the patient and review his MRI scan when finished. Time Spent With Patient Time with patient: less than 15 minutes
[2018-12-07] MEDS: INSULIN GLARGINE 100 UNIT/ML 3ML PEN 50 UNIT SUBCUT (21:22)
[2018-12-08] VITALS (12 sets, daily range): BP systolic 98–134; BP diastolic 53–76; PULSE 68–90; RESP 16–18; TEMP 36.7–37.4; O2SAT 93–99
[2018-12-08] MEDS: OXYCODONE IR 10 MG TABLET PO ×6 (00:26→23:44)
[2018-12-08] MEDS: INSULIN ASPART 100 UNIT/ML INSULN PEN 6 UNIT SUBCUT ×3 (08:26→16:54)
[2018-12-08] MEDS: SODIUM CHLORIDE 0.9% FLUSH 10 ML IV ×2 (08:30→20:12)
[2018-12-08] MEDS: ENOXAPARIN 40 MG/0.4 ML SYRINGE SUBCUT (08:32)
[2018-12-08] MEDS: ISOSORBIDE MONONITRATE ER 30 MG TABLET PO ×2 (08:34→20:13)
[2018-12-08] MEDS: CLOPIDOGREL 75 MG TABLET PO (08:35)
[2018-12-08] MEDS: GABAPENTIN 300 MG CAPSULE 600 MG PO ×2 (08:35→20:12)
[2018-12-08] MEDS: LISINOPRIL 5 MG TABLET 2.5 MG PO (08:35)
[2018-12-08] MEDS: PANTOPRAZOLE 40 MG TABLET PO (08:35)
--- NOTE | 2018-12-08 10:27 | PC.NURSE ---
Addendum entered by Lashay Kimball R.N. 12/08/18 11:08: Pt nauseated after getting back from MRI, requesting PRN med. Phenergan po given at 1100. Will monitor. Original Note: Day Shift- Pt reported no pain with resting onto left side which he prefers. 4/10 with movement in bed this AM. After getting OOB to change gown, pt's pain increased to 10/10 with movement, aching, sharp. PRN Oxycodone 10mg given at 0915. Pt left room via wheelchair for MRI exam at 0935, pt back settled into bed at 1020. Denies nausea with pain medications at this time. Will monitor. OOB with SBA , pt using walker, slightly unsteady gait, pain with movement LLE.
[2018-12-08] MEDS: PROMETHAZINE 25 MG TABLET PO (11:02)
--- NOTE | 2018-12-08 12:25 | PT.IPTN ---
Physical Therapy Treatment Note M2 PT-IP Current Condition Start: 12/07/18 14:46 Freq: NEEDED Status: Active Protocol: Document 12/07/18 14:07 AB (Rec: 12/07/18 15:21 AB [id number]) Physical Therapy Current Condition Current Condition Evaluation Date 12/07/18 Treatment Diagnosis L hip pain; difficulty in walking Onset Date 12/06/18 M3 PT-IP Subjective Start: 12/07/18 14:46 Freq: NEEDED Status: Active Protocol: Document 12/08/18 12:25 AB (Rec: 12/08/18 13:27 AB [id number]) Subjective Physical Therapy Visit Type Type Treatment Note Visit Start Time 12:25 Visit Stop Time 12:42 Total Visit Minutes 17 Number of COMPLAINT CLERK Visits 0 Physical Therapy Visit Comments Patient Comments pt agreeable to do PT Therapy Pain Assessment Pain When Pain Assessed At Rest Pain Present Pain Present Pain Reported Location Left Hip Intensity 2 Scale Used increases with mobility Pain Management Techniques Timing of Activity with Medications M4 PT-IP Mobility and Gait Start: 12/07/18 14:46 Freq: NEEDED Status: Active Protocol: Document 12/08/18 12:25 AB (Rec: 12/08/18 13:27 AB [id number]) PT-Bed Mobility Assessment Supine to Sit Supine to Sit Standby Assistance Bedrails Sit to Supine Sit to Supine Moderate Assistance Bedrails PT-Transfer Assessment Sit to and From Stand Sit to and from Stand Contact Guard Assistance Equipment Transfer Assistive Device Gait Belt Front Wheeled Walker Orthotic/Prosthetic Devices or Brace: No Gait Assessment Gait Gait Assistance Required: Minimum Assistance Distance (Feet) 50 Able to Maintain Weight Bearing Status Yes During Gait Assistive Devices Assistive Device Gait Belt Front Wheeled Walker Platform Walker Orthotic/Prosthetic Devices or Brace: No Gait Deviations General Gait Pattern Antalgic Decreased Stride Length Decreased Feet Clearance Step-to Gait Factors Limiting Gait Function Factors Limiting Gait Function Decreased Activity Tolerance Decreased Strength Limited Range of Motion Pain Poor Balance Comments Gait Comments pt with increase L knee flexion during ambulation with slight R knee giving out during weight bearing wiht pt stating that it is due to the pain. M5 PT-IP Objective Assessments Start: 12/07/18 14:46 Freq: NEEDED Status: Active Protocol: Document 12/07/18 14:07 AB (Rec: 12/07/18 15:21 AB [id number]) Orientation Orientation/Cognition Level of Alertness Alert Orientation Name Age Place Situation Language Function Ability No Deficits Noted Safety Awareness Understands Safety Issues Memory Description No Deficits Noted Gross Range of Motion Lower Extremity ROM Assessment Within Functional Limits Impairments tightness on LLE during hip and knee flexion Strength Lower Extremity Strength Assessment Left Impaired Knee 3+/5 Coordination Assessment Gross Coordination Gross Coordination WNL Sensation Assessment Sensation Gross Sensation WNL Muscle Tone Muscle Tone WNL Yes Other Assessments Other Other Assessments pt c/o L lateral hip pain radiated to lateral knee. imaging results were unremarkable. Assessed pt for trochanteric bursitis and IT band tightness. (+) pain/ tenderness on L hip/greater trochanter area and lateral thigh(IT band) to. Attempted Enriqueta's test but pt unable to tolerate with pain radiating to knee during test. M6 PT-IP Treatment Start: 12/07/18 14:46 Freq: NEEDED Status: Active Protocol: Document 12/07/18 14:07 AB (Rec: 12/07/18 15:21 AB [id number]) Physical Therapy Treatment Education Education Provided Safety Other Treatments Other Treatment Performed conducted MFR on L IT band and IT band stretching but pt unable to tolerate much. only tolerated ~ 10 to 20 sec of stretching x 2 reps. M7 PT-IP Assessment and Plan Start: 12/07/18 14:46 Freq: NEEDED Status: Active Protocol: Document 12/08/18 12:25 AB (Rec: 12/08/18 13:27 AB [id number]) PT Summary Assessment and Plan Potential Rehabilitation Potential Fair Summary Impairments Pain ROM Strength Balance Bed Mobility Transfers Gait Activity Tolerance Progress Towards Goals Slow Progress due to Pain Slow Progress due to Medical Issues Assessment Summary pt continues to c/o increase pain on lateral Lhip down to lateral knee. stated that his hip felt better yesterday after PT session but now, pain has increased after MRI. stated that he has nausea after MRI as well and just wants to do ambulation. will continue to monitor pt's mobility progress. pt continues to have considerable amount of pain affecting mobility and safety. has increase L knee flexion during mobility. will continue to monitor progress and determine safe d/c plan. Goals Bed Mobility Goal Standby Assistance Transfer Goal Standby Assistance Front Wheeled Walker Gait Goal Standby Assistance Front Wheel Walker Gait Distance 200 Days to Meet Goals 10 Frequency of Treatment Frequency Of Treatment Once a Day Treatment Plan Physical Therapy Treatment Plan Bed Mobility Training Transfer Training Gait Training Therapeutic Exercise Balance Retraining Discharge Planning Hot or Cold Pack Neuromuscular Re-ed Coordination Retraining Manual Therapy Other Recommendations and Next Treatment IT band stretching, myofascial Focus realease; ambulation Recommendations To Nursing Amount of Assist Needed 1 Person Assist Discharge Recommendations PT Discharge Recommendations Home with 24/7 Assist SNF Rehab Outpatient PT Other Discharge Recommendations depending on progress: SNF vs home with 24/7 and outpt PT Equipment Needed for Home Before FWW Discharge
--- NOTE | 2018-12-08 13:22 | PM.PN.1 ---
Subjective Date Patient Seen: 12/08/18 Interval history: Patient is a 73-year-old male who was admitted to the hospital for abrupt onset left hip pain. Since admission to the hospital he has been unable to bear weight as this caused significant pain. He notes that the pain in the left hip is better when laying on the hip. He has pain with straight leg raise on the left. He does not have any pain with internal external rotation of the hip. There is some swelling on the lateral aspect of the left hip. The patient did have an MRI of the hip today. The MRI showed some edema and enhancement at the L4-L5 area. There was also found to be a moderate to tear of the left labor, and left ligamentum teres. This was discussed with Dr. Arvizu. Given the significant amount of pain the patient is having with movement and ambulation he felt this was unlikely due to the hip muscular tear. Patient is scheduled for an MRI of the lumbar spine to rule out disc disease resulting in radiated pain to the left hip. Exam Vital Signs (past 8 hours): - 12/08/18 05:30 12/08/18 07:30 12/08/18 08:00 Temperature 99.4 F 98.5 F Pulse Rate 72 78 Respiratory Rate 18 18 Blood Pressure 101/74 98/76 Pulse Oximetry 93 94 96 12/08/18 08:29 12/08/18 08:35 12/08/18 11:40 Temperature Pulse Rate 68 70 Respiratory Rate 16 Blood Pressure 107/66 Pulse Oximetry 96 99 Fraction of Inspired Oxygen 21 Oxygen Delivery Method Room Air Oxygen Flow Rate 0 Narrative Exam Narrative: Pleasant male uncomfortable lying in bed Lungs: Clear to auscultation Cardiac exam: Regular rate rhythm normal S [place] S2 Tenderness to palpation over the left hip Objective Labs Result Diagrams: 12/07/18 05:45 12/07/18 05:45 Assessment & Plan Assessment & Plan narrative: ssessment & Plan narrative: 1. 73-year-old male admitted with left hip pain. Etiology unclear. X-ray reveals no evidence of fracture. Discussed case with Dr. Arvizu who will evaluate the patient. For now will start him on Tylenol 975 t.i.d.. Will continue with oxycodone 10 mg Q 4 as needed. Will continue with PT as well. Will defer MRI until evaluation by Dr. Arvizu. Await lumbosacral MRI 2. Hypertension will continue current treatment 3. Type 2 diabetes continue basal bolus insulin 4. GERD continue Protonix 5. coronary artery disease will continue usual medication. Quality VTE Deep Vein Thrombosis/Pulmonary Embolism Present on Admission: No
[2018-12-08] MEDS: FENOFIBRATE 160 MG TABLET PO (16:53)
[2018-12-08] MEDS: ASPIRIN EC 81 MG TABLET PO (16:53)
--- NOTE | 2018-12-08 18:05 | DI.MRI.S_ITS ---
PROCEDURE: MR HIP LT WO/W CON INDICATIONS: Left hip pain. History of cancer. TECHNIQUE: Noncontrast coronal T1 spin echo and STIR through the bony pelvis. Coronal and axial T2 fast spin echo with fat saturation, axial T1 spin echo with fat saturation, sagittal T1 spin echo, and oblique axial T2 fast spin echo with fat saturation through the hip. Post-contrast axial, coronal, and sagittal spin echo with fat saturation through the hip. COMPARISON: [facility], CT, CT ABDOMEN PELVIS W CON, 12/06/2018, 15:04. FINDINGS: Image quality: Diagnostic. Bones and joints: No acute fracture, dislocation, suspicious osseous lesion, or evidence of avascular necrosis is evident involving the left hip. There are mild degenerative changes of the left hip with heterogeneity and irregularity of the superior hyaline articular cartilage. There may be small developing marginal osteophytes about the femoral head. No significant hip effusion is identified. The alpha angle of the right femoral head measures approximately 65?. The remainder of the imaged osseous structures of the included pelvis are intact without a displaced fracture. No suspicious osseous lesions are appreciated. There is moderate marrow edema evident involving the L4 vertebral body. Mild marrow edema involving the L5 vertebral body is present. This is not adequately characterized. There are mild degenerative changes noted involving the bilateral sacroiliac joints, right hip, and pubis symphysis. No suspicious osseous enhancement is evident on the postcontrast images. Labrum: Evaluation of the left acetabular labrum is difficult without intra-articular contrast. However, there is a small to moderate-sized superior labral tear with corresponding small para labral cysts. Tendons and ligaments: The ligamentum teres probably is partially torn. The proximal left hamstrings tendons demonstrate mild increased signal. The distal iliopsoas tendons are intact and unremarkable. The distal left gluteus medius and gluteus minimus tendons are within normal limits. There is mild edema within the region of the greater trochanteric bursa. Soft tissues: No suspicious soft tissue enhancement. Visualized muscles demonstrate normal bulk and internal signal. Quadratus femoris muscle demonstrates no internal edema to suggest ischiofemoral impingement. The proximal sciatic neurovascular bundle appears normal adjacent to the hamstring tendons. No free pelvic fluid. Bladder wall thickness is normal. Genitourinary structures and bowel loops appear normal where visualized. No suspicious soft tissue enhancement is evident. IMPRESSION: 1. No acute fracture or suspicious osseous lesions of the left hip and. 2. Mild degenerative changes of the left hip. 3. Small to moderate-sized superior left acetabular labral tear. 4. Mild proximal left hamstrings tendinopathy. 5. Probable partial-thickness tear involving the ligamentum teres of the left hip. 6. Prominent edema and subtle enhancement of the L4 vertebral body. While not included on this examination, there is irregularity involving the L3-L4 endplate on the prior CT from 12/06/18. While these findings may be degenerative, the possibility of discitis/osteomyelitis cannot be completely excluded. Lumbar spine MRI with contrast would be helpful for better evaluation. Dictated by: Domingo Brown M.D. on 12/08/2018 at 10:02 Approved by: Domingo Brown M.D. on 12/08/2018 at 10:14
--- NOTE | 2018-12-08 18:09 | PM.PN.1 ---
Exam Vital Signs (past 8 hours): - 12/08/18 11:40 12/08/18 13:00 12/08/18 15:00 Temperature 98.6 F Pulse Rate 72 Respiratory Rate 18 Blood Pressure 117/57 L Pulse Oximetry 99 95 94 12/08/18 15:21 Temperature 98.3 F Pulse Rate 90 Respiratory Rate 18 Blood Pressure 134/67 Pulse Oximetry 94 Fraction of Inspired Oxygen 21 Oxygen Delivery Method Room Air Oxygen Flow Rate 0 Objective Labs Result Diagrams: 12/07/18 05:45 12/07/18 05:45 Assessment & Plan Assessment & Plan narrative: The patient's hip MRI scan was reviewed. There were no significant osseous findings that would support his hip pain. The patient does have labral tearing and some other degenerative changes in the hip. These would not be expected to cause a severe type of pain that he is experiencing. The patient also has some uptake in his lumbar spine and radiology as recommended further evaluation with a lumbar MRI scan. I think this is reasonable as his pain could certainly be from lumbar pathology especially at the L3-4. If the lumbar MRI scan is unremarkable and the hip pain continues I would then recommend attempted aspiration of the left hip by Radiology. At that time a local anesthetic would be placed in the hip which would also give us an idea if this was the origin of his pain even if no fluid was obtained. I will review the lumbar MRI scan once obtained. Quality VTE Deep Vein Thrombosis/Pulmonary Embolism Present on Admission: No
[2018-12-08] MEDS: INSULIN GLARGINE 100 UNIT/ML 3ML PEN 50 UNIT SUBCUT (20:12)
[2018-12-09] VITALS (9 sets, daily range): BP systolic 108–144; BP diastolic 72–79; PULSE 66–107; RESP 16–18; TEMP 36.7–37.3; O2SAT 94–96
[2018-12-09] MEDS: OXYCODONE IR 10 MG TABLET PO ×3 (04:07→12:54)
--- NOTE | 2018-12-09 08:20 | CM.DPC ---
DCP: continued: Case received, EMR reviewed. Note that pt has been here since 12/06. OBS admission status: confirmed thus far by [facility] RN team. PT is ordered and Kelly did see pt with initial recommendation of snf vs 24/7 home assist. MRI of hip done yesterday and with note of a small to moderate labral tear. Recommendation: consideration of MRI lumbar spine. Full dx at this time remains in process. Hospitalist Dr. Wallace is conferring with consulting orthopedic team: Dr. Arvizu. P: discuss in Team Rounds. Check in with pt to see what his options for 24/7 home care look like. SNF stay at this point would be under a pvt pay status. Discussed case with UR HAILEE Resendiz who will be following the admission status for today.
[2018-12-09] MEDS: CLOPIDOGREL 75 MG TABLET PO (08:29)
[2018-12-09] MEDS: GABAPENTIN 300 MG CAPSULE 600 MG PO ×2 (08:29→21:17)
[2018-12-09] MEDS: LISINOPRIL 5 MG TABLET 2.5 MG PO (08:29)
[2018-12-09] MEDS: ISOSORBIDE MONONITRATE ER 30 MG TABLET PO ×2 (08:30→21:17)
[2018-12-09] MEDS: PANTOPRAZOLE 40 MG TABLET PO (08:30)
[2018-12-09] MEDS: ENOXAPARIN 40 MG/0.4 ML SYRINGE SUBCUT (08:30)
--- NOTE | 2018-12-09 10:38 | PM.PN.1 ---
Subjective Date Patient Seen: 12/09/18 Time Patient Seen: 10:39 Interval history: Hospital day 3 with complain of left hip and thigh area pain questionable etiology. He did have orthopedic consult done by Dr. Arvizu couple of days ago. He has had CT and MRI of his pelvis which did not note any significant hip area problem. Patient does complain of some low back pain. Also complains of left leg weakness and difficulty lifting his left leg when lying down compared to the right. Also has noted some decreased sensation to left foot. He is able to sleep on his left side without discomfort. On review of his x-ray and CT scan he does appear to have significant degenerative disc space narrowing at L3-4 level which may be the origin of his problem. He states that he recalls when he was in the that he was told he should not do sit-ups because of back problem. Exam Vital Signs (past 8 hours): - 12/09/18 04:00 12/09/18 07:47 12/09/18 08:00 Temperature 98.2 F 98.3 F Pulse Rate 76 71 Respiratory Rate 18 16 Blood Pressure 136/78 108/77 Pulse Oximetry 96 95 95 Fraction of Inspired Oxygen 21 Oxygen Delivery Method Room Air Oxygen Flow Rate 0 Narrative Exam Narrative: Alert, oriented no acute distress lying on his left side in bed. Back. Moderate tenderness on palpation to lower lumbar area. Legs. No tenderness on palpation to left lateral hip or with hip ROM. Good pulses distally. Decreased sensation to left foot compared to right to touch. Does have some mild left sided weakness with foot dorsiflexion plantar flexion compared to the right. Objective Labs Result Diagrams: 12/07/18 05:45 12/07/18 05:45 Assessment & Plan Assessment & Plan narrative: Plan: His pelvic CT and MRI do not show any significant left hip pathology. His history and exam are suggestive of lumbar disc disease possibly at the L3-4 level. Patient is scheduled for lumbar spine MRI today by hospitalist. Will await results of MR to plan further treatment. He may benefit from physical therapy to lumbar spine. Also may be a candidate for lumbar GONZÁLEZ there is significant disc disease. Quality VTE Deep Vein Thrombosis/Pulmonary Embolism Present on Admission: No
[2018-12-09] MEDS: SODIUM CHLORIDE 0.9% FLUSH 10 ML IV ×2 (11:02→21:18)
[2018-12-09] MEDS: ONDANSETRON 4 MG/2 ML INJ IV ×2 (11:03→16:28)
--- NOTE | 2018-12-09 11:59 | DI.MRI.S_ITS ---
PROCEDURE: MR LUMBAR SPINE WO/W CON INDICATIONS: severe hip pain TECHNIQUE: Noncontrast sagittal T1 spin echo and T2 fast spin echo, sagittal STIR, axial T1 and T2 fast spin echo through the lumbar spine. In cases with scoliosis, additional coronal T2 fast spin echo may be performed. After the administration of contrast, sagittal and axial T1 spin echo with fat saturation through the lumbar spine. COMPARISON: [facility], CT, CT ABDOMEN PELVIS W CON, 12/06/2018, 15:04. FINDINGS: Image quality: This examination is limited by involuntary motion artifact. Alignment and curvature: Mild retrolisthesis can be seen at the L5-S1 level. Marrow: Marrow is of normal overall signal. No acute vertebral body compression fractures. No suspicious marrow enhancement. Spinal cord: Conus medullaris terminates at the L1 level. Visualized spinal cord demonstrates normal signal, without suspicious enhancement. Paraspinous soft tissues: No paravertebral masses or abnormal enhancement. T12-L1: Bridging endplate osteophytes are seen. No significant neural foraminal or central canal narrowing can be seen. L1-L2: Normal appearance. L2-L3: The disc height and disc signal are relatively well-preserved. Mild to moderate disc bulge is seen, which is eccentric to the right. Mild bilateral neural foraminal narrowing is seen. Minimal central canal narrowing is seen. L3-L4: Moderate loss of disc height is seen. Loss of disc signal is seen. Reactive marrow endplate changes are seen which are hypointense on T1-weighted imaging and hyperintense on T2 weighted imaging, which is most consistent with edema (Modic type I changes). Associated mild endplate enhancement is seen. Moderate to prominent disc bulge is seen. There is a central disc protrusion seen. Moderate facet joint hypertrophy is seen. There is moderate to severe bilateral neural foraminal narrowing seen, left worse than right. There is a degree of compression seen upon the exiting nerve roots. Moderate to severe central canal narrowing is seen. L4-L5: The disc height is well-preserved. Loss of disc signal is seen at this level. Moderate disc bulge is seen. Moderate to prominent facet hypertrophy is seen at this level. There is moderate to severe bilateral neural foraminal narrowing seen. There is a degree of compression seen upon the exiting nerve roots. Moderate to severe central canal narrowing is seen at this level. L5-S1: Moderate loss of disc height is seen. Loss of disc signal is seen. Moderate to prominent disc bulge is seen at this level. Mild to moderate facet hypertrophy is seen. There is moderate to severe bilateral neural foraminal narrowing seen, with associated exiting nerve root compression. Moderate central canal narrowing is seen. IMPRESSION: Relatively prominent lower lumbar spine degenerative changes are seen, with moderate to severe bilateral neural foraminal narrowing at L3-L4, L4-L5, and L5-S1. There is associated nerve root compression. Moderate to severe central canal narrowing can be seen at L3-L4 and L4-L5. Endplate edema can be seen at L3-L4. Dictated by: Phi Hagen M.D. on 12/09/2018 at 10:42 Approved by: Phi Hagen M.D. on 12/09/2018 at 10:47
[2018-12-09] MEDS: INSULIN ASPART 100 UNIT/ML INSULN PEN 6 UNIT SUBCUT (14:20)
[2018-12-09] MEDS: DEXAMETHASONE 4 MG/ML VIAL IV ×3 (14:24→23:45)
--- NOTE | 2018-12-09 14:45 | P.PN_ITS ---
Subjective Date Patient Seen: 12/09/18 Interval history: Patient continues to have low back pain. He is able to am bulate somewhat. He does have pain with straight leg raise on the left. His pain is improved when lying on the left side. The patient underwent a lumbar roll MRI today. Confirmed spinal canal stenosis involving L3-L4-L4-L5 and L5- S1. There is some nerve impingement on the left side at L3-L4. Exam Vital Signs (past 8 hours): - 12/09/18 07:47 12/09/18 08:00 12/09/18 12:38 Temperature 98.3 F Pulse Rate 71 70 Respiratory Rate 16 16 Blood Pressure 108/77 Pulse Oximetry 95 95 96 Fraction of Inspired Oxygen 21 Oxygen Delivery Method Room Air Oxygen Flow Rate 0 Narrative Exam Narrative: Pleasant male in no obvious distress Lungs: Clear to auscultation Cardiac exam: Regular rate rhythm normal S1-S2 Abdomen: Soft nontender nondistended Extremities: No edema, straight leg raise positive on the left Objective Labs Result Diagrams: 12/07/18 05:45 12/07/18 05:45 Assessment & Plan Assessment & Plan narrative: Assessment & Plan narrative: ssessment & Plan narrative: 1. 73-year-old male admitted with left hip pain. Etiology unclear. X-ray reveals no evidence of fracture. Discussed case with Dr. Arvizu who will evaluate the patient. For now will start him on Tylenol 975 t.i.d.. Will continue with oxycodone 10 mg Q 4 as needed. Will continue with PT as well. Will defer MRI until evaluation by Dr. Arvizu. Await lumbosacral MRI. MRI findings are as follows: Relatively prominent lower lumbar spine degenerative changes are seen, with moderate to severe bilateral neural foraminal narrowing at L3-L4, L4-L5, and L5- S1. There is associated nerve root compression. Moderate to severe central canal narrowing can be seen at L3-L4 and L4-L5. Endplate edema can be seen at L3-L4. Plan patient to be started on IV steroids. Hopefully with steroids and physical therapy he will be ambulatory. Patient will then be referred to an outpatient epidural steroid injection. 2. Hypertension will continue current treatment 3. Type 2 diabetes continue basal bolus insulin 4. GERD continue Protonix 5. coronary artery disease will continue usual medication. Quality VTE Deep Vein Thrombosis/Pulmonary Embolism Present on Admission: No
[2018-12-09] MEDS: ASPIRIN EC 81 MG TABLET PO (16:28)
[2018-12-09] MEDS: FENOFIBRATE 160 MG TABLET PO (16:28)
--- NOTE | 2018-12-09 17:39 | PT.IPTN ---
Physical Therapy Treatment Note M2 PT-IP Current Condition Start: 12/07/18 14:46 Freq: NEEDED Status: Active Protocol: Document 12/07/18 14:07 AB (Rec: 12/07/18 15:21 AB [id number]) Physical Therapy Current Condition Current Condition Evaluation Date 12/07/18 Treatment Diagnosis L hip pain; difficulty in walking Onset Date 12/06/18 M3 PT-IP Subjective Start: 12/07/18 14:46 Freq: NEEDED Status: Active Protocol: Document 12/09/18 17:30 EA (Rec: 12/09/18 17:39 EA [id number]) Subjective Physical Therapy Visit Type Type Treatment Note Visit Start Time 17:07 Visit Stop Time 17:30 Total Visit Minutes 23 Physical Therapy Visit Comments Patient Comments Patient reports left sidelying made his low back and leg better. Therapy Pain Assessment Pain When Pain Assessed At Rest Pain Present Pain Present Pain Reported Location Left Hip Intensity 8 M4 PT-IP Mobility and Gait Start: 12/07/18 14:46 Freq: NEEDED Status: Active Protocol: Document 12/09/18 17:30 EA (Rec: 12/09/18 17:39 EA [id number]) PT-Bed Mobility Assessment Rolling Type of Rolling Log Rolling Roll to Right Roll to Left Level of Assist Standby Assistance Supine to Sit Supine to Sit Standby Assistance Sit to Supine Sit to Supine Minimal Assistance Scooting Scooting to Edge of Bed Standby Assistance PT-Transfer Assessment Sit to and From Stand Sit to and from Stand Standby Assistance Equipment Transfer Assistive Device Gait Belt Front Wheeled Walker Transfers Transfer Destination Bed Toilet Bedside Commode Transfer Technique stepping Transfer Ability Level of Assist Contact Guard Assistance Gait Assessment Gait Gait Assistance Required: Contact Guard Assist Distance (Feet) 60 Able to Maintain Weight Bearing Status Yes During Gait Assistive Devices Assistive Device 4 Wheeled Walker Gait Deviations General Gait Pattern Antalgic Factors Limiting Gait Function Factors Limiting Gait Function Pain M5 PT-IP Objective Assessments Start: 12/07/18 14:46 Freq: NEEDED Status: Active Protocol: Document 12/07/18 14:07 AB (Rec: 12/07/18 15:21 AB [id number]) Orientation Orientation/Cognition Level of Alertness Alert Orientation Name Age Place Situation Language Function Ability No Deficits Noted Safety Awareness Understands Safety Issues Memory Description No Deficits Noted Gross Range of Motion Lower Extremity ROM Assessment Within Functional Limits Impairments tightness on LLE during hip and knee flexion Strength Lower Extremity Strength Assessment Left Impaired Knee 3+/5 Coordination Assessment Gross Coordination Gross Coordination WNL Sensation Assessment Sensation Gross Sensation WNL Muscle Tone Muscle Tone WNL Yes Other Assessments Other Other Assessments pt c/o L lateral hip pain radiated to lateral knee. imaging results were unremarkable. Assessed pt for trochanteric bursitis and IT band tightness. (+) pain/ tenderness on L hip/greater trochanter area and lateral thigh(IT band) to. Attempted Enriqueta's test but pt unable to tolerate with pain radiating to knee during test. M6 PT-IP Treatment Start: 12/07/18 14:46 Freq: NEEDED Status: Active Protocol: Document 12/09/18 17:30 EA (Rec: 12/09/18 17:39 EA [id number]) Physical Therapy Treatment Exercises Exercises Heel Slides M7 PT-IP Assessment and Plan Start: 12/07/18 14:46 Freq: NEEDED Status: Active Protocol: Document 12/09/18 17:30 EA (Rec: 12/09/18 17:39 EA [id number]) PT Summary Assessment and Plan Summary Impairments Pain Gait Activity Tolerance Progress Towards Goals Slow Progress due to Pain Assessment Summary Pt mobilized with difficulty due to pain and decreased activity tolerance. Left sidelying position seems to work better. MFR to upper lateral gluteals decreased pain. Patient would cont. to benefit with skilled PT working on his positioning and increasing activities. Apply cold compress nd manual PT is recommended to decreases pain on left gluteal region. Goals Bed Mobility Goal Independent Transfer Goal Independent Gait Goal Independent Gait Distance 100 Days to Meet Goals 2 Frequency of Treatment Frequency Of Treatment Twice a Day Treatment Plan Physical Therapy Treatment Plan Bed Mobility Training Therapeutic Exercise Balance Retraining Hot or Cold Pack Manual Therapy Recommendations To Nursing Amount of Assist Needed 1 Person Assist Discharge Recommendations PT Discharge Recommendations Home
[2018-12-09] MEDS: INSULIN GLARGINE 100 UNIT/ML 3ML PEN 50 UNIT SUBCUT (21:18)
[2018-12-09] MEDS: PROMETHAZINE 25 MG TABLET PO (23:44)
[2018-12-10] MEDS: OXYCODONE IR 10 MG TABLET PO ×2 (02:10→06:23)
[2018-12-10 03:00] VITALS: BP 128/75; PULSE 86; RESP 16; TEMP 36.6; O2SAT 91
[2018-12-10] MEDS: DEXAMETHASONE 4 MG/ML VIAL IV ×2 (06:18→12:08)
[2018-12-10 08:00] VITALS: BP 133/74; PULSE 94; RESP 16; TEMP 37.3; O2SAT 97
--- NOTE | 2018-12-10 08:23 | PM.DS.1 ---
History of Present Illness Date Patient Seen: 12/10/18 Chief complaint: Lt hip pain and nausea Narrative: Jones Leger is a morbidly obese 73-year-old male with diabetes type 2, CAD, hypertension, history of kidney stones, and COPD who presents with a sudden onset history of being unable to ambulate and bear weight on his left hip. He states that this happened this morning when he was trying to get out of the shower. He stated 2 days ago he walked a little bit more than normal but did not give me the distance that he walked. He also has a complaint of nausea he states he has been more dizzy of late, denies fever, he has been sleeping with a fan on but denies having shortness of breath, he states he has been constipated and has urinary burning and nausea for 1 night. He states that he has been unable to bear weight on that left hip Um and he has numbing to his hands and arms which is chronic he states he is a diabetic with a hemoglobin A1c last taken of 7.1 and he bruises and bleeds easily due to taking Plavix. Discharge Providers Date of admission: 12/06/18 20:03 Discharge Date: 12/10/18 Primary care physician: Komal Bang PA-C Consults: 12/07/18 20:01 Consult to Physical Therapy Evaluate & Treat Comment: Left hip pain, unable to ambulate Physician Instructions: Evaluate and Treat 12/08/18 16:56 Consult to Physician Routine Comment: Consulting Provider: Mayito Arvizu Reason for consultation: see notes Discharge provider: Briseyda Wallace MD Summary Discharge Diagnosis: 1. Lumbar Stenosis with impingement of the nerve root at L3-4 on the left 2. Left acetabular labral tear 3. Type 2 Diabetes Mellitus 4.Hyperlipidemia 5. Hypertension 6. GERD 7. CAD 8. COPD Hospital Course: The patient is a 73-year-old male who presented to the hospital with abrupt onset left hip pain following standing pain was excruciating. The patient was unable to bear weight. An abdominal pelvic CT was negative for any evidence of hip fracture. The patient underwent a MRI of the left hip which showed a left acetabular labral tear. As the pain was felt to be severely excruciating and not fully explained by MRI finding the patient underwent a MRI of the lumbosacral spine. The MRI findings are as follows: Relatively prominent lower lumbar spine degenerative changes are seen, with moderate to severe bilateral neural foraminal narrowing at L3-L4, L4-L5, and L5-S1. There is associated nerve root compression. Moderate to severe central canal narrowing can be seen at L3-L4 and L4-L5. Endplate edema can be seen at L3-L4. The patient was placed on IV steroids with significant improvement in his pain. He was able to ambulate with PT. Pain decreased from 9/10 in 10 down to 0-1. We discussed the possibility of epidural steroid injection. Unfortunately that cannot be obtained as an inpatient. However the patient can be referred to a pain clinic with the [facility] in [facility] for an outpatient epidural steroid injection if appropriate. The patient denies any constipation his pain is well controlled he was deemed appropriate for discharge and arrangements were made for him to be discharged home. Exam Vital Signs (past 8 hours): - 12/10/18 03:00 Temperature 97.9 F Pulse Rate 86 Respiratory Rate 16 Blood Pressure 128/75 Pulse Oximetry 91 Fraction of Inspired Oxygen 21 Oxygen Delivery Method Room Air Oxygen Flow Rate 0 Narrative Exam Narrative: Delightful gentleman in no obvious distress Lungs: Clear to auscultation Cardiac exam regular rate rhythm normal S1-S2 Abdomen: Soft nontender nondistended Extremities: No edema Objective Labs Result Diagrams: 12/07/18 05:45 12/07/18 05:45 Discharge Plan Discharge Plan Patient Disposition: Home Discharge comment: [facility] In[facility] Discharge Med Rec/Prescriptions Prescriptions: New promethazine 25 mg Tablet 25 mg PO Q6HR PRN (Reason: Nausea) Qty: 15 RF: 0 oxycodone 10 mg Tablet 10 mg PO Q4HR PRN (Reason: Pain, Severe (7-10)) Qty: 20 RF: 0 prednisone 10 mg tablets,dose pack See Rx Instructions .ROUTE .COMPLEX Qty: 21 RF: 0 Continued clopidogrel 75 MG tablet 75 mg PO DAILY Qty: 0 RF: 0 gabapentin [Neurontin] 300 MG capsule 600 mg PO BID Qty: 0 RF: 0 fluticasone propionate 16 GM spray,suspension 2 spray Intranasal DAILY PRN (Reason: Allergy Symptoms) Qty: 0 RF: 0 fenofibrate 160 MG tablet 160 mg PO QPM Qty: 0 RF: 0 nitroglycerin [Nitrostat] 0.4 MG tablet, sublingual 0.4 mg Sublingual PRN PRN (Reason: Chest Pain) Qty: 0 RF: 0 Lantus U-100 Insulin 100 UNIT/1 ML solution 50 unit SQ QPM Qty: 0 RF: 0 insulin lispro [Humalog U-100 Insulin] 100 UNIT/1 ML solution 6 unit SQ TIDAC Qty: 0 RF: 0 aspirin 81 MG tablet,delayed release (DR/EC) 81 mg PO QPM Qty: 0 RF: 0 lisinopril 2.5 MG tablet 2.5 mg PO DAILY Qty: 0 RF: 0 isosorbide mononitrate 30 mg tablet extended release 24 hr 30 mg PO BID RF: 0 pantoprazole 40 mg tablet,delayed release (DR/EC) 40 mg PO DAILY RF: 0 dulaglutide 0.75 mg/0.5 mL pen injector 0.75 mg subcut QWEEK RF: 0 acetaminophen 325 mg Tablet 650 mg PO Q6H PRN (Reason: pain) RF: 0 cetirizine 10 mg Tablet 10 mg PO DAILY PRN (Reason: Allergy Symptoms) RF: 0 meloxicam 15 mg tablet 15 mg PO DAILY MDD pain RF: 0 albuterol sulfate 90 mcg/actuation HFA aerosol inhaler 1 puff Inhalation Q4H PRN (Reason: Shortness Of Breath) RF: 0 Follow up/Referrals: Komal Bang PA-C [Primary Care Provider] - Provider Discharge Instructions Diet: Low-fat and Low-sodium Visit Report/Discharge Packet Instructions: Prednisone, Oxycodone, Promethazine, DI for Spinal Stenosis Visit Report Forms: Stroke Signs & Symptoms Discharge Data Primary Care Provider: Komal Bang Attending Provider: Meenakshi Gamez Admit Date/Time: 12/06/18 20:03 Discharges patient from system. Discharge Date/Time: 12/10/18 13:25 Quality VTE Deep Vein Thrombosis/Pulmonary Embolism Present on Admission: No
[2018-12-10] MEDS: INSULIN ASPART 100 UNIT/ML INSULN PEN 6 UNIT SUBCUT ×2 (09:15→12:13)
[2018-12-10] MEDS: SODIUM CHLORIDE 0.9% FLUSH 10 ML IV (09:16)
[2018-12-10] MEDS: LISINOPRIL 5 MG TABLET 2.5 MG PO (09:28)
[2018-12-10] MEDS: PROMETHAZINE 25 MG TABLET PO (09:28)
[2018-12-10] MEDS: ISOSORBIDE MONONITRATE ER 30 MG TABLET PO (09:29)
[2018-12-10] MEDS: CLOPIDOGREL 75 MG TABLET PO (09:29)
[2018-12-10] MEDS: PANTOPRAZOLE 40 MG TABLET PO (09:29)
[2018-12-10] MEDS: ENOXAPARIN 40 MG/0.4 ML SYRINGE SUBCUT (09:29)
[2018-12-10] MEDS: GABAPENTIN 300 MG CAPSULE 600 MG PO (09:34)
[2018-12-10 11:01] VITALS: O2SAT 94
--- NOTE | 2018-12-10 11:08 | PC.NURSE ---
Addendum entered by Maribel Pimentel R.N. 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 Addendum entered by Maribel Pimentel R.N. 12/10/18 12:45: PAIN/DC - discussed pain mgt, discharge, medications, given the noon dose dexamethasone now, then iv dc'd, given 975mg po tylenol for back/hip discomfort 1 on scale 0/10 and will hold off taking oxycodone until this bud. Original Note: AM NOTE - pt up to dangle position for breakfast, states earlier oxycodone provided adequate relief and pt states back and hip discomfort much improved after start of dexamethasone, pain 1 on scale 0/10 now, does have some hx tingling ue, hands at times, plan to dc home this am.
[2018-12-10] MEDS: ACETAMINOPHEN 325 MG TABLET 975 MG PO (12:10)
--- NOTE | 2018-12-10 12:49 | CM.DPC ---
DCP: continued: pt now with a d/c to home. Discussed case in Team Rounds and Dr. Wallace noted that the IV steroid treatment had been successfull and pt was now mobilizing. Met now with pt and family members in followup. All note the rapidity of pt's improvement and the relief that no infection has been found. Pt says he is very ready to go home with family support and that he will follow up with the pain clinic for further options as per physician recommendation. Pt notes the only need they still have is to better understand why pt is in OBS status. They had a copy of the [facility] and had several ? re this. Explained general process and the discussion each day with Dr. Wallace and UR team re POC and Admission status guidelines. Offered to have the UR RN provide more information as the focus of this CM was on DCPlanning. All noted the information had been most helpful, they greatly appreciated all of the care here at and that they were now ready to take pt home.
== END 2018-12-10 13:25 | disposition home or self-care (01) ==
LOC: ED 19:41 → AC 20:04
PROVIDERS: Admitting Provider Nurse Practitioner Family; Emergency Provider Emergency Medicine; PCP Physician Assistant Medical; Visit Provider Nurse Practitioner Family
DX: S73.192A Other sprain of left hip, initial encounter (principal); M25.552 Pain in left hip; I25.10 Atherosclerotic heart disease of native coronary artery without angina pectoris; E11.9 Type 2 diabetes mellitus without complications; I10 Essential (primary) hypertension; J44.9 Chronic obstructive pulmonary disease, unspecified; K21.9 Gastro-esophageal reflux disease without esophagitis; E66.01 Morbid (severe) obesity due to excess calories; M48.061 Spinal stenosis, lumbar region without neurogenic claudication; G58.8 Other specified mononeuropathies; E78.5 Hyperlipidemia, unspecified; Z79.01 Long term (current) use of anticoagulants; Z79.4 Long term (current) use of insulin
CPT/HCPCS: 36415; 72158; 73723; 74022; 74177; 80048; 81001; 82962; 83036; 85025; 85610; 85651; 86140; 93005; 93926; 94760; 96372; 96374; 96375; 96376; 97116; 97140; 97162; 97530; 99283; 99285; G0378; A9579; J1100; J1650; J1885; J2405

== ENCOUNTER 2019-01-07 16:20 | Emergency (ER) | payer MEDICARE, OTHER, SELFPAY ==
[2018-12-23 15:45] VITALS: BMI 37.0
[2019-01-07 17:15] VITALS: BP 106/62; PULSE 97; RESP 12; TEMP 36.7; O2SAT 97; BMI 35.5
--- NOTE | 2019-01-07 17:33 | DI.RAD.S_ITS ---
PROCEDURE: XR CHEST 1V INDICATIONS: weakness, feels unwell. cardiac history TECHNIQUE: One view of the chest was acquired. COMPARISON: [facility], CR, XR CHEST 2V, 06/03/2018, 11:57. FINDINGS: Surgical changes and devices: Sternal wires are present. Lungs and pleura: There is mild appearance of increased pulmonary vascularity. Mediastinum: Mediastinal contours appear normal. Heart size is borderline enlarged. Bones and chest wall: No suspicious bony lesions. Overlying soft tissues appear unremarkable. IMPRESSION: Minimal increased vascularity suggestive of edema. Dictated by: Luz Carlos M.D. on 01/07/2019 at 18:26 Approved by: Luz Carlos M.D. on 01/07/2019 at 18:26
[2019-01-07 17:52] LABS: Add Manual Diff / Slide Review NO; Basophils Absolute Auto 0 /uL (0-100); Basophils Percent Auto 0.1 % (0-2); Eosinophils Absolute Auto 100 /uL (0-450); Eosinophils Percent Auto 0.9 % (2-4); Hematocrit 38.5 % (41-53); Hemoglobin 12.4 g/dL (13.5-17.5); Lymphocytes Absolute Auto 900 /uL (1100-4500); Mean Corpuscular HGB Conc 32.3 % (30-36); Mean Corpuscular Hemoglobin 27.7 PG (26-34); Mean Corpuscular Volume 85.9 fL (80-100); Monocytes Absolute Auto 700 /uL (0-900); Monocytes Percent Auto 6.4 % (3-14); Neutrophils Absolute Auto 8700 /uL (1500-7000); Neutrophils Percent Auto 83.6 % (50-75); Platelet Count 224 X10^3/uL (150-400); Red Blood Cell Count 4.48 X10^6/uL (4.5-5.9); Red Cell Distribution Width 16.2 % (11.6-14.8); White Blood Cell Count 10.3 X10^3/uL (4.5-11.0)
[2019-01-07 17:59] LABS: INR 0.9 (0.9-1.3); Prothrombin Time 10.7 SECONDS (10.1-12.7)
[2019-01-07 18:00] LABS: PTT Partial Thromboplastin Tim 27 SECONDS (26.4-36.2)
[2019-01-07 18:01] LABS: Alanine Aminotransferase 17 IU/L (21-72); Albumin 3.8 g/dL (3.5-5.0); Albumin Globulin Ratio 1.4 (1.0-2.8); Alkaline Phosphatase 80 U/L (38-126); Aspartate Aminotransferase 20 IU/L (17-59); BUN Creatinine Ratio 15.4 (6-22); Bilirubin Total 0.4 mg/dL (0.2-1.3); Blood Urea Nitrogen 20 mg/dL (9-20); Calcium 8.9 mg/dL (8.4-10.2); Carbon Dioxide 26 mmol/L (22-32); Chloride 101 mmol/L (98-107); Creatine Kinase 27 U/L (55-170); Globulin 2.8 g/dL (1.7-4.1); Glucose 374 mg/dL (80-110); HEMOLYSIS < 15 (0-50); Magnesium 1.7 mg/dL (1.6-2.3); Potassium 5.1 mmol/L (3.4-5.1); Sodium 136 mmol/L (137-145); Total Protein 6.6 g/dL (6.3-8.2)
[2019-01-07 18:08] LABS: B Type Natriuretic Peptide < 100 (<100)
[2019-01-07 18:13] LABS: Troponin I < 0.012 ng/mL (0.01-0.034)
[2019-01-07 18:30] VITALS: BP 151/72; PULSE 95; RESP 16; O2SAT 98
[2019-01-07 19:01] VITALS: BP 124/67; PULSE 96; RESP 18; O2SAT 98
--- NOTE | 2019-01-07 19:17 | ED.BACK ---
HPI - Back Pain/Injury <Mikayla LoveEVELINA - Last Filed: 01/07/19 21:46> General Chief Complaint: Back Pain/Injury Stated Complaint: Low Back Pain Time Seen by Provider: 01/07/19 18:08 Source: patient Mode of arrival: ambulatory Limitations: no limitations History of Present Illness HPI Narrative: 73-year-old male with a history of diabetes spinal stenosis, presents emergency department today complaining of increased lower back pain radiating down his left side. He states the pain is a sharp stabbing 10/10 that is worse with movement and slightly better with rest. Patient was recently seen and diagnosed with spinal stenosis, he has an appointment with the [facility] in the next month to receive injections in the spine. However, 2 days ago he was at physical therapy and was asked to get on the bicycle, after the session he developed increasing pain. He states he has had some numbness to his left foot, this is been going on for some time but is worse today. Today he was attempting to stand when he experienced a significant amount of pain, and diaphoresis, at that time he took a nitroglycerin-however, patient denied chest pain. The episode and once the pain has decreased after he was sitting for some time. Patient also described that he had ran out of his oxycodone today and his pain was significantly worse. He denies any chest pain, shortness of breath, headaches, syncope, abdominal pain, nausea, vomiting, fevers, chills, loss of bowel or bladder control. He also states that he has been taking prednisone, he took his a dose this morning. Related Data Home Medications Medication Instructions Recorded Confirmed Lantus U-100 Insulin 50 unit SQ QPM #0 07/08/16 12/06/18 clopidogrel 75 mg PO DAILY #0 07/08/16 12/06/18 fenofibrate 160 mg PO QPM #0 07/08/16 12/06/18 fluticasone propionate 2 spray INTRANASAL DAILY PRN #0 07/08/16 12/06/18 gabapentin [Neurontin] 600 mg PO BID #0 07/08/16 12/06/18 insulin lispro [Humalog U-100 6 unit SQ TIDAC #0 07/08/16 12/06/18 Insulin] nitroglycerin [Nitrostat] 0.4 mg SUBLINGUAL PRN PRN #0 07/08/16 12/06/18 aspirin 81 mg PO QPM #0 07/09/16 12/06/18 lisinopril 2.5 mg PO DAILY #0 07/09/16 12/06/18 albuterol sulfate 1 puff INHALATION Q4H PRN 06/03/18 12/06/18 meloxicam 15 mg PO DAILY MDD pain 06/03/18 12/06/18 acetaminophen 650 mg PO Q6H PRN 12/06/18 12/06/18 cetirizine 10 mg PO DAILY PRN 12/06/18 12/06/18 dulaglutide 0.75 mg SUBCUT QWEEK 12/06/18 12/06/18 isosorbide mononitrate 30 mg PO BID 12/06/18 12/06/18 pantoprazole 40 mg PO DAILY 12/06/18 12/06/18 Previous Rx's Medication Instructions Recorded oxycodone 10 mg PO Q4HR PRN #20 tab 12/10/18 promethazine 25 mg PO Q6HR PRN #15 tab 12/10/18 oxycodone 5 mg capsule 5 mg PO Q8H #10 cap MDD 15 mg 12/29/18 prednisone 5 mg tablet 5 mg PO Q OTHER DAY #20 tab 01/04/19 oxycodone 5 mg PO Q4-6H PRN #10 tab 01/07/19 Allergies Allergy/AdvReac Type Severity Reaction Status Date / Time glipizide [GLIPIZIDE] Allergy Intermediate Verified 12/29/18 16:19 niacin [NIACIN] Allergy Intermediate Verified 12/29/18 16:19 Uljbgba-Nxu-Ymd Reductase Allergy Intermediate Verified 12/29/18 16:19 Inhibitor [[id number] REDUCTASE INHIBITOR] albiglutide [From Tanzeum] Allergy Unknown Verified 12/29/18 16:19 metoprolol Allergy Unknown Verified 12/29/18 16:19 Review of Systems <EVELINA Malone - Last Filed: 01/07/19 21:46> Review of Systems Narrative: REVIEW OF SYSTEMS: GENERAL: Denies fever or chills. HENT: No head trauma. EYES: No double vision or vision loss. CARDIOVASCULAR: No chest pain or syncope. Reports diaphoresis, see HPI. RESPIRATORY: No shortness of breath or cough. GASTROINTESTINAL: No nausea, vomiting, diarrhea, or constipation. GENITOURINARY: No flank pain or dysuria. MUSCULOSKELETAL: Complains of lumbar pain, see HPI. INTEGUMENTARY: No rash, lesions, or pruritus. NEURO: Complains of decreased sensation in left leg, see HPI.. PSYCH: No behavior or mood changes. PFSH <EVELINA Malone - Last Filed: 01/07/19 21:46> Medical History Aneurysm (Chronic) Coronary artery disease (Acute) Diabetes (Acute) History of kidney stones (Chronic) Hypertension (Acute) Surgical History History of colon resection (Inactive) History of coronary artery stent placement (Chronic) S/P CABG x 4 (Inactive) Family History Mother Hypertension Father Hypertension Social History household members: spouse Smoking Status: Former smoker Family History Mother Hypertension Father Hypertension Social History household members: spouse Smoking Status: Former smoker Exam <EVELINA Malone - Last Filed: 01/07/19 21:46> Initial Vital Signs Initial Vital Signs: Vital Signs Temperature 98.1 F 01/07/19 17:15 Pulse Rate 97 H 01/07/19 17:15 Respiratory Rate 12 01/07/19 17:15 Blood Pressure 106/62 01/07/19 17:15 Pulse Oximetry 97 01/07/19 17:15 PHYSICAL EXAMINATION: GENERAL: Well groomed, alert, and cooperative. Answers questions promptly and appropriately. Vital signs noted. HENT: Normocephalic, atraumatic. EYES: Symmetrical, sclera white, no periorbital swelling. CARDIOVASCULAR: S1 and S2 sounds normal. Regular rate and rhythm, no murmurs, clicks, or bruits. No pedal edema. RESPIRATORY: Normal respiratory rate, trachea midline, airway patent. No stridor, nasal flaring or accessory muscle use. Lungs are clear in all jarvis. ABD: Nontender to palpation, no organomegaly. MUSCULOSKELETAL: No significant tenderness along the lumbar spine with palpation. Equal tone and mass bilaterally. Straight leg raise to left side produces pain, no pain with palpation to hip or knee. No swelling or erythema noted to leg. EXTREMITIES: CMS intact. No pedal edema. SKIN: Warm, dry, soft, appropriate color for ethnicity. No lesions, rashes, or wounds. NEURO: Alert and Oriented X 3. Decreased light tough sensation to top of left foot (patient states this has increased slightly the past 2 days). PSYCH: Appropriate affect and mood. <Lauren Love MD - Last Filed: 01/10/19 02:00> Initial Vital Signs Initial Vital Signs: Vital Signs Temperature 98.1 F 01/07/19 17:15 Pulse Rate 97 H 01/07/19 17:15 Respiratory Rate 12 01/07/19 17:15 Blood Pressure 106/62 01/07/19 17:15 Pulse Oximetry 97 01/07/19 17:15 Course <EVELINA Malone - Last Filed: 01/07/19 21:46> Course Course Narrative: Extensively reviewed the patient's lumbar spine MRI that was completed on 12/09/18. Orders Ordered: Discontinued Medications Insulin Human Regular (Humulin R) 10 unit SUBCUT NOW ONE Stop: 01/07/19 19:16 Last Admin: 01/07/19 19:37 Dose: Not Given Documented by: LEONIDAS Insulin Human Regular (Humulin R) 10 unit SUBCUT NOW ONE Stop: 01/07/19 19:39 Last Admin: 01/07/19 19:46 Dose: 10 unit Documented by: CINDY Cosigned by: VENKAT Vital Signs Vital signs: Vital Signs - 8 hr 01/07/19 17:15 01/07/19 18:30 01/07/19 19:01 Temperature 98.1 F Pulse Rate 97 H 95 H 96 H Respiratory Rate 12 16 18 Blood Pressure 106/62 Blood Pressure [Left Arm] 151/72 H 124/67 Pulse Oximetry 97 98 98 01/07/19 20:30 Temperature Pulse Rate 90 Respiratory Rate 19 Blood Pressure 118/61 Blood Pressure [Left Arm] Pulse Oximetry 97 <Lauren Love MD - Last Filed: 01/10/19 02:00> Orders Ordered: Discontinued Medications Insulin Human Regular (Humulin R) 10 unit SUBCUT NOW ONE Stop: 01/07/19 19:16 Last Admin: 01/07/19 19:37 Dose: Not Given Documented by: LEONIDAS Insulin Human Regular (Humulin R) 10 unit SUBCUT NOW ONE Stop: 01/07/19 19:39 Last Admin: 01/07/19 19:46 Dose: 10 unit Documented by: CINDY Cosigned by: VENKAT Vital Signs Vital signs: Vital Signs - 8 hr 01/07/19 17:15 01/07/19 18:30 01/07/19 19:01 Temperature 98.1 F Pulse Rate 97 H 95 H 96 H Respiratory Rate 12 16 18 Blood Pressure 106/62 Blood Pressure [Left Arm] 151/72 H 124/67 Pulse Oximetry 97 98 98 01/07/19 20:30 Temperature Pulse Rate 90 Respiratory Rate 19 Blood Pressure 118/61 Blood Pressure [Left Arm] Pulse Oximetry 97 MDM - Back Pain/Injury <EVELINA Malone - Last Filed: 01/07/19 21:46> Medical Records Attestation: I reviewed the patient's medical records. Lab Data Attestation: I reviewed the patient's lab results. Result diagrams: 01/07/19 17:42 01/07/19 17:42 Labs: Lab Results 01/07/19 01/07/19 01/07/19 Range/Units 17:42 17:42 17:42 WBC 10.3 (4.5-11.0) X10^3/uL RBC 4.48 L (4.5-5.9) X10^6/uL Hgb 12.4 L (13.5-17.5) g/dL Hct 38.5 L (41-53) % MCV 85.9 (80-100) fL MCH 27.7 (26-34) PG MCHC 32.3 (30-36) % RDW 16.2 H (11.6-14.8) % Plt Count 224 (150-400) X10^3/uL Neut % (Auto) 83.6 H (50-75) % Lymph % (Auto) 9.0 L (25-40) % [place] % (Auto) 6.4 (3-14) % Eos % (Auto) 0.9 L (2-4) % Baso % (Auto) 0.1 (0-2) % Neut # (Auto) 8700 H (0507-0886) /uL Lymph # (Auto) 900 L (0517-1126) /uL [place] # (Auto) 700 (0-900) /uL Eos # (Auto) 100 (0-450) /uL Baso # (Auto) 0 (0-100) /uL PT 10.7 (10.1-12.7) SECONDS INR 0.9 (0.9-1.3) APTT 27 (26.4-36.2) SECONDS Sodium 136 L (137-145) mmol/L Potassium 5.1 (3.4-5.1) mmol/L Chloride 101 (98-107) mmol/L Carbon Dioxide 26 (22-32) mmol/L BUN 20 (9-20) mg/dL Creatinine 1.30 H (0.66-1.25) mg/dL Estimated GFR 54.0 L (>60) mL/min BUN/Creatinine Ratio 15.4 (6-22) Glucose 374 H (80-110) mg/dL Calcium 8.9 (8.4-10.2) mg/dL Magnesium 1.7 (1.6-2.3) mg/dL Total Bilirubin 0.4 (0.2-1.3) mg/dL AST 20 (17-59) IU/L ALT 17 L (21-72) IU/L Alkaline Phosphatase 80 (38-126) U/L Total Creatine Kinase 27 L (55-170) U/L CK-MB (CK-2) TNP CK-MB (CK-2) Rel Index TNP Troponin I < 0.012 (0.01-0.034) ng/mL B-Natriuretic Peptide < 100 (<100) Total Protein 6.6 (6.3-8.2) g/dL Albumin 3.8 (3.5-5.0) g/dL Globulin 2.8 (1.7-4.1) g/dL Albumin/Globulin Ratio 1.4 (1.0-2.8) Point of Care Testing Glucose POC 318 Imaging Data Chest XR: Radiologist's impression: [address] [address] XRay Report Signed Patient: Jones Leger CMR#: [id number] : 5Acct:[id number] Age/Sex: 73 / MDate of Service: 01/07/19 Loc: ED Accession Number: [id number] Procedure: XR chest 1V Ordering Provider: Lauren Love MD PROCEDURE: XR CHEST 1V INDICATIONS: weakness, feels unwell. cardiac history TECHNIQUE: One view of the chest was acquired. COMPARISON: [facility], CR, XR CHEST 2V, 06/03/2018, 11:57. FINDINGS: Surgical changes and devices: Sternal wires are present. Lungs and pleura: There is mild appearance of increased pulmonary vascularity. Mediastinum: Mediastinal contours appear normal. Heart size is borderline enlarged. Bones and chest wall: No suspicious bony lesions. Overlying soft tissues appear unremarkable. IMPRESSION: Minimal increased vascularity suggestive of edema. Dictated by: Luz Carlos M.D. on 01/07/2019 at 18:26 Approved by: Luz Carlos M.D. on 01/07/2019 at 18:26 ECG Data Interpretation: Normal sinus rhythm, rate 93, W[place] interval 194, QTC 394. No ST elevation or depression. No ectopy T-wave inversion in AVL. EKG was seen by Dr. Love. MDM Narrative Medical decision making narrative: Patient's symptoms are most likely caused by spinal stenosis with associated sciatica that was diagnosed on 12/09/18 the MRI, symptoms are most likely exacerbated by recent physical therapy as noted in the history. Patient was essentially here for pain control, as of conversation was had with patient about the dangers of narcotics and muscle relaxers. He was counseled about the dangers the use of opioid, patient agrees to continue to keep his pain clinic appointment which is scheduled on February. I believe that his symptoms of diaphoresis were caused by his pain as he describes he was a lot of pain when this happened, his lab work does not indicate ACS (negative troponin, no ST changes or abnormal T-wave inversions on EKG, normal chest x-ray) very low. Very low concern for infection (lack of systemic symptoms, normal white blood cell count), very little concern for cauda equina (no saddle paresthesias, strength remains equal on both lower extremities, no loss of bowel bladder control). Strict return precautions were given and follow-up instructions discussed. <Lauren Love MD - Last Filed: 01/10/19 02:00> Lab Data Labs: Lab Results 01/07/19 01/07/19 01/07/19 Range/Units 17:42 17:42 17:42 WBC 10.3 (4.5-11.0) X10^3/uL RBC 4.48 L (4.5-5.9) X10^6/uL Hgb 12.4 L (13.5-17.5) g/dL Hct 38.5 L (41-53) % MCV 85.9 (80-100) fL MCH 27.7 (26-34) PG MCHC 32.3 (30-36) % RDW 16.2 H (11.6-14.8) % Plt Count 224 (150-400) X10^3/uL Neut % (Auto) 83.6 H (50-75) % Lymph % (Auto) 9.0 L (25-40) % [place] % (Auto) 6.4 (3-14) % Eos % (Auto) 0.9 L (2-4) % Baso % (Auto) 0.1 (0-2) % Neut # (Auto) 8700 H (3729-5515) /uL Lymph # (Auto) 900 L (0495-6397) /uL [place] # (Auto) 700 (0-900) /uL Eos # (Auto) 100 (0-450) /uL Baso # (Auto) 0 (0-100) /uL PT 10.7 (10.1-12.7) SECONDS INR 0.9 (0.9-1.3) APTT 27 (26.4-36.2) SECONDS Sodium 136 L (137-145) mmol/L Potassium 5.1 (3.4-5.1) mmol/L Chloride 101 (98-107) mmol/L Carbon Dioxide 26 (22-32) mmol/L BUN 20 (9-20) mg/dL Creatinine 1.30 H (0.66-1.25) mg/dL Estimated GFR 54.0 L (>60) mL/min BUN/Creatinine Ratio 15.4 (6-22) Glucose 374 H (80-110) mg/dL Calcium 8.9 (8.4-10.2) mg/dL Magnesium 1.7 (1.6-2.3) mg/dL Total Bilirubin 0.4 (0.2-1.3) mg/dL AST 20 (17-59) IU/L ALT 17 L (21-72) IU/L Alkaline Phosphatase 80 (38-126) U/L Total Creatine Kinase 27 L (55-170) U/L CK-MB (CK-2) TNP CK-MB (CK-2) Rel Index TNP Troponin I < 0.012 (0.01-0.034) ng/mL B-Natriuretic Peptide < 100 (<100) Total Protein 6.6 (6.3-8.2) g/dL Albumin 3.8 (3.5-5.0) g/dL Globulin 2.8 (1.7-4.1) g/dL Albumin/Globulin Ratio 1.4 (1.0-2.8) Point of Care Testing Glucose POC 318 Discharge Plan Departure Patient Disposition: Home Clinical Impression: Back pain Qualifiers: Back pain location: low back pain Chronicity: acute Back pain laterality: left Sciatica presence: with sciatica Sciatica laterality: sciatica of left side Qualified Code(s): M54.42 - Lumbago with sciatica, left side Discharge Date/Time: 01/07/19 20:32 Instructions: DI for Sciatica Activity Restrictions/Additional Instructions: Thank you for entrusting me with your care today. As discussed, your lab work was negative for any cardiac issues, additionally your blood sugar was elevated-this is likely due from the prednisone, please follow up with her primary care provider. I prescribed you pain medication for your, do not drive with this medication as it can make you drowsy. Follow up with her primary care provider to discuss further pain management options as scheduled on Thursday. Return to the emergency department if you developed syncope, chest pain, shortness of breath, high fevers, facial droop, or confusion. Prescriptions: New oxycodone 5 mg tablet 5 mg PO Q4-6H PRN (Reason: pain) Qty: 10 RF: 0 No Action clopidogrel 75 MG tablet 75 mg PO DAILY Qty: 0 RF: 0 gabapentin [Neurontin] 300 MG capsule 600 mg PO BID Qty: 0 RF: 0 fluticasone propionate 16 GM spray,suspension 2 spray Intranasal DAILY PRN (Reason: Allergy Symptoms) Qty: 0 RF: 0 fenofibrate 160 MG tablet 160 mg PO QPM Qty: 0 RF: 0 nitroglycerin [Nitrostat] 0.4 MG tablet, sublingual 0.4 mg Sublingual PRN PRN (Reason: Chest Pain) Qty: 0 RF: 0 Lantus U-100 Insulin 100 UNIT/1 ML solution 50 unit SQ QPM Qty: 0 RF: 0 insulin lispro [Humalog U-100 Insulin] 100 UNIT/1 ML solution 6 unit SQ TIDAC Qty: 0 RF: 0 aspirin 81 MG tablet,delayed release (DR/EC) 81 mg PO QPM Qty: 0 RF: 0 lisinopril 2.5 MG tablet 2.5 mg PO DAILY Qty: 0 RF: 0 prednisone 5 mg tablet 5 mg PO Q OTHER DAY Qty: 20 RF: 0 isosorbide mononitrate 30 mg tablet extended release 24 hr 30 mg PO BID RF: 0 pantoprazole 40 mg tablet,delayed release (DR/EC) 40 mg PO DAILY RF: 0 dulaglutide 0.75 mg/0.5 mL pen injector 0.75 mg subcut QWEEK RF: 0 acetaminophen 325 mg Tablet 650 mg PO Q6H PRN (Reason: pain) RF: 0 cetirizine 10 mg Tablet 10 mg PO DAILY PRN (Reason: Allergy Symptoms) RF: 0 promethazine 25 mg Tablet 25 mg PO Q6HR PRN (Reason: Nausea) Qty: 15 RF: 0 oxycodone 10 mg Tablet 10 mg PO Q4HR PRN (Reason: Pain, Severe (7-10)) Qty: 20 RF: 0 meloxicam 15 mg tablet 15 mg PO DAILY MDD pain RF: 0 albuterol sulfate 90 mcg/actuation HFA aerosol inhaler 1 puff Inhalation Q4H PRN (Reason: Shortness Of Breath) RF: 0 oxycodone 5 mg capsule 5 mg PO Q8H MDD 15 mg Qty: 10 RF: 0 Referrals: Komal Bang PA-C [Primary Care Provider] -
[2019-01-07] MEDS: INSULIN REGULAR 100 UNIT/ML 3 ML VIAL 10 UNIT SUBCUT (19:46)
[2019-01-07 20:30] VITALS: BP 118/61; PULSE 90; RESP 19; O2SAT 97
== END 2019-01-07 20:32 | disposition home or self-care (01) ==
PROVIDERS: Emergency Medicine; Emergency Provider Nurse Practitioner; PCP Physician Assistant Medical
DX: M54.42 Lumbago with sciatica, left side (principal)
CPT/HCPCS: 36415; 71045; 80053; 82550; 82962; 83735; 83880; 84484; 85025; 85610; 85730; 93005; 96372; 99282; 99284

== ENCOUNTER → 2019-01-17 10:54 | Outpatient (CLI) | payer MEDICARE, OTHER, SELFPAY ==
[2018-12-23 15:45] VITALS: BMI 37.0
--- NOTE | 2019-01-17 10:58 | DI.MRI.S_ITS ---
PROCEDURE: MR CERVICAL SPINE WO CON INDICATIONS: Cervical Radiculopathy and history of basilar aneuyrism TECHNIQUE: Noncontrast sagittal T1 spin echo and T2 fast spin echo, sagittal STIR, foraminal oblique sagittal T2 fast spin echo, and axial gradient echo or T2 fast spin echo through the cervical spine. COMPARISON: None. FINDINGS: Image quality: Excellent. Alignment and Curvature: There is loss of normal cervical lordosis. There is mild, grade 1 anterolisthesis of C3 on C4. Mild grade 1 retrolisthesis of C4 on C5 and C5 on C6. Bone Marrow: Marrow demonstrates normal overall signal. There is mild reactive signal within the endplates adjacent to the CT C3, C3-C4, C4-C5, C5-C6, and C6-C7 intervertebral discs. T2 hemangioma is present. Spinal Cord: Visualized spinal cord has normal size and signal. No cerebellar tonsillar herniation. Paraspinous Soft Tissues: No paravertebral masses. Prevertebral soft tissues are normal in thickness. C2-C3: Congenital canal stenosis. Moderate disc desiccation. Mild diffuse disc bulge with superimposed central protrusion. Mild bilateral facet hypertrophy. Moderate to severe canal stenosis. Mild right and severe left foraminal stenosis. Left C3 nerve root compression. C3-C4: Congenital canal stenosis. Mild disc height loss. Moderate disc desiccation. Mild diffuse disc bulge with superimposed right posterolateral and far lateral protrusion. Moderate right and mild left facet hypertrophy. Moderate to severe canal stenosis. Minimal anterior cord flattening. Moderate to severe right and mild left foraminal stenosis. Right C4 nerve root compression. C4-C5: Congenital canal stenosis. Mild disc height loss. Moderate disc desiccation. Mild diffuse disc bulge. Moderate right and mild left facet and uncovertebral hypertrophy. Moderate to severe canal stenosis. Mild cord flattening. Moderate bilateral foraminal stenosis. C5-C6: Congenital canal stenosis. Moderate disc height loss and desiccation. Moderate diffuse disc bulge. Moderate facet and uncovertebral hypertrophy bilaterally. Severe canal stenosis. Mild cord flattening. Severe bilateral foraminal stenosis with bilateral C6 nerve root compression. C6-C7: Congenital canal stenosis. Moderate disc height loss and desiccation. Moderate diffuse disc bulge. Moderate facet and uncovertebral hypertrophy bilaterally. Severe canal stenosis. Mild cord flattening. Moderate left and severe right foraminal stenosis. Right C7 nerve root compression. C7-T1: Mild disc height loss and desiccation. Mild diffuse disc bulge. Mild facet and uncovertebral hypertrophy bilaterally. Mild canal stenosis. Moderate right and mild left foraminal stenosis. IMPRESSION: 1. Diffuse congenital canal stenosis, with superimposed disc and facet disease, as well as uncovertebral hypertrophy. 2. Multilevel canal stenoses, worst at C3-C4, C4-C5, C5-C6, and C6-C7, where there is cord flattening present. 3. Multilevel foraminal stenoses, worst at C5-C6, and C6-C7, where there is associated intraforaminal nerve root compression. Recommend correlation with clinical symptoms to ascertain relevance of these findings. Dictated by: Carter Osman M.D. on 01/17/2019 at 13:28 Approved by: Carter Osman M.D. on 01/17/2019 at 13:35
== END ==
PROVIDERS: PCP Physician Assistant Medical; Visit Provider Registered Nurse
DX: M50.11 Cervical disc disorder with radiculopathy, high cervical region (principal); M48.02 Spinal stenosis, cervical region; I72.5 Aneurysm of other precerebral arteries
CPT/HCPCS: 72141

== ENCOUNTER 2019-02-15 09:25 | Outpatient (CLI) | payer MEDICARE, OTHER, SELFPAY ==
[2018-12-23 15:45] VITALS: BMI 37.0
[2019-02-15] VITALS (10 sets, daily range): BP systolic 115–146; BP diastolic 72–88; PULSE 73–88; RESP 16–18; TEMP 36.6; O2SAT 94–96
--- NOTE | 2019-02-15 09:28 | DI.RAD.S_ITS ---
PROCEDURE: PAIN L/S TRANSFORAMINAL INJECT INDICATIONS: RADICULOPATHTY FINDINGS: Fluoroscopic spot filming was performed to verify placement of spinal needles at the L3-L4 level(s), as labeled on the films. Appropriate location(s) of the needle tip(s) was confirmed by injection of iodinated contrast. IMPRESSION: Fluoroscopy guidance for pain management. Dictated by: Douglas Klein M.D. on 02/15/2019 at 13:52 Approved by: Douglas Klein M.D. on 02/15/2019 at 13:53
[2019-02-15] MEDS: MIDAZOLAM 5 MG/5 ML VIAL IV (10:51)
[2019-02-15] MEDS: BUPIVACAINE 0.25% (PF) VIAL 2 ML INJ (10:57)
[2019-02-15] MEDS: BETAMETHASONE 30 MG/5 ML MDV 6 MG INJ (10:58)
[2019-02-15] MEDS: IOPAMIDOL 15 ML VIAL 3 ML INJ (10:58)
[2019-02-15] MEDS: DEXAMETHASONE 10 MG/ML VIAL 20 MG INJ (10:58)
--- NOTE | 2019-02-15 11:05 | PC.NURSE ---
ASSISTING PT OFF TABLE AND TRANSPORTING TO POST PROC AREA IN STABLE CONDITION. PASSING PT CARE ON TO HONEY Espinosa RN.
--- NOTE | 2019-02-15 11:18 | P.PCN_ITS ---
Procedures Date/Time Date of procedure: 02/15/19 Time of procedure: 11:18 General Procedure description: PREOP DIAGNOSIS 1. FORMAINAL STENOSIS WITH LE SYMPTOMS POST OP DIAGNOSIS 1. FORMAINAL STENOSIS WITH LE SYMPTOMS PROCEDURES 1. FLUOROSCOPICALLY GUIDED CONTRAST CONTROLLED TRANSFORAMINAL EPIDURAL STEROID INJECTION - LEFT L3/4 PHYSICIAN: Reilly Mak DO INDICATIONS: Jones is referred by PAC Merritt for treatment of Foraminal Stenosis with Left LE Symptoms FINDINGS Foraminal Nerve Root Compression secondary to disc disease and facet hypertrophy DESCRIPTION OF PROCEDURE: Following review of allergy and review of potential side effects and complications, including, but not necessarily limited to, infection, allergic reaction, local tissue breakdown, stroke, temporary or permanent nerve injury, paralysis, and possible , the patient indicated that the patient understood and agreed to proceed. An informed consent document was signed by the patient, witnessed by a nurse, and placed in the patient's chart. Additionally, other treatment options including medications, modalities, and physical therapy were reviewed with the patient. After review of previous anaesthesic history and IV conscious sedation the patient was deemed safe to proceed with todays procedure with IV conscious sedation as ASA class II designation. Safety time-out was performed to confirm patient ID, procedure to be performed and site of procedure. IV sedation was accomplished with a combination of 2mg of Versed administered by the RN after DO order, titrated to patient comfort during the course of the procedure while the patient remained responsive to all verbal commands In the prone position following sterile prep and drape of the lumbar region, the left L4/5 posterior neuroforamen was identified fluoroscopically. The skin was anesthetized via a 25-gauge 1.5-inch needle with 1% lidocaine solution. At this point, a 25-gauge 3.5-inch spinal needle was atraumatically introduced and advanced under fluoroscopic guidance through the posterior left L4/5 neuroforamen to approximately the anterior aspect of the canal. Depth was confirmed on lateral view. Following negative aspiration, injection of approximately 1.5 cc of Isovue 200 under live fluoroscopy in the AP view confirmed excellent flow along the nerve root, into the epidural space without vascular or intrathecal uptake observed Radiological data, including multiple fluoroscopic views of the lumbosacral spine, reveal a spinal needle at the left L4/5 posterior neuroforamen. Subsequent views show flow of contrast material flowing superiorly and inferiorly along the nerve root confirming epidural flow. Subsequently, a test dose of 1.5 cc of 1% lidocaine solution was administered and patient was observed for two minutes for signs or symptoms of complications, including abdominal pain, shortness of breath, bilateral upper or lower extremity weakness, nausea and vomiting, prior to steroid injection. At this point, a total of 3cc or 20mg of dexamethasone and 6mg of betamethasone was injected without incident. The procedure tolerated the procedure well without signs or symptoms of complications prior to transfer to the recovery area continued monitoring without incident. The patient was then transferred to the recovery area where they were observed for an appropriate time after the injection. The patient reported a VAS score of 7 prior to the procedure and a post- procedure VAS of 0. Total Fluoroscopy Time: 20.9 seconds Total Conscious Sedation Time: 24min POST OP INSTRUCTIONS The patient was provided a Pain Log to continue to record their response to the target-specific procedure prior to follow-up visit with their referring physician. Additionally, specific post-injection care instructions and a contact number to our office were provided if concerns arise regarding possible complications associated with the procedure are suspected. Reilly Mak DO Complications: none
--- NOTE | 2019-02-15 12:13 | PC.NURSE ---
Post procedure note: VSS, O2 Sat WNL, No complaints of pain. Tolerating Po without nausea. Stable for discharge to home. W/C to car.
== END 2019-02-15 11:56 ==
LOC: RAD 09:27
PROVIDERS: Family Provider Physician Assistant Medical; PCP Physician Assistant Medical; Visit Provider Physical Medicine & Rehabilitation
DX: M48.061 Spinal stenosis, lumbar region without neurogenic claudication (principal); M51.16 Intervertebral disc disorders with radiculopathy, lumbar region
CPT/HCPCS: 64483; 99152; J0702; J1100; J2250; J3010

== ENCOUNTER 2019-04-14 14:21 | Outpatient (CLI) | payer MEDICARE, OTHER, SELFPAY ==
[2018-12-23 15:45] VITALS: BMI 37.0
== END 2019-04-14 16:00 ==
LOC: PHYS 14:22
PROVIDERS: PCP Physician Assistant Medical; Visit Provider Registered Nurse
DX: R20.2 Paresthesia of skin (principal); M54.12 Radiculopathy, cervical region
CPT/HCPCS: 95886; 95912

== ENCOUNTER 2019-06-03 12:16 | Outpatient (CLI) | payer MEDICARE, OTHER, SELFPAY ==
[2018-12-23 15:45] VITALS: BMI 37.0
[2019-06-03] VITALS (9 sets, daily range): BP systolic 117–155; BP diastolic 62–83; PULSE 69–78; RESP 16; TEMP 36.4; O2SAT 94–98
--- NOTE | 2019-06-03 12:18 | DI.RAD.S_ITS ---
PROCEDURE: PAIN L/S TRANSFORAMINAL INJECT INDICATIONS: SPINAL STENOSIS FINDINGS: Fluoroscopic spot filming was performed to verify placement of spinal needles at the L3-L4 level(s), as labeled on the films. Appropriate location(s) of the needle tip(s) was confirmed by injection of iodinated contrast. Dictated by: Marciano Gamez M.D. on 06/03/2019 at 15:51 Approved by: Marciano Gamez M.D. on 06/03/2019 at 15:51
[2019-06-03] MEDS: MIDAZOLAM 5 MG/5 ML VIAL IV (13:26)
[2019-06-03] MEDS: BUPIVACAINE 0.25% (PF) VIAL 2 ML INJ (13:29)
[2019-06-03] MEDS: IOPAMIDOL 15 ML VIAL 3 ML INJ (13:30)
[2019-06-03] MEDS: BETAMETHASONE 30 MG/5 ML MDV 6 MG INJ (13:30)
--- NOTE | 2019-06-03 13:40 | PM.PROC.1 ---
Procedures Date/Time Date of procedure: 06/03/19 Time of procedure: 13:40 General Procedure description: PROVIDER: Reilly Mak DO Operative Note PREOP DIAGNOSIS 1. FORAMINAL STENOSIS WITH LE SYMPTOMS, POST OP DIAGNOSIS 1. FORAMINAL STENOSIS WITH LE SYMPTOMS, PROCEDURES 1. FLUOROSCOPICALLY GUIDED CONTRAST CONTROLLED TRANSFORAMINAL EPIDURAL STEROID INJECTION - RIGHT L3/4 TFESI SURGEON: Reilly Mak, DO INDICATIONS Jones is referred by SOFIA Bnag for treatment of Foraminal Stenosis with right LE Symptoms FINDINGS Foraminal Nerve Root Compression secondary to disc disease and facet hypertrophy DESCRIPTION OF PROCEDURE Following review of allergy and review of potential side effects and complications, including, but not necessarily limited to, infection, allergic reaction, local tissue breakdown, stroke, temporary or permanent nerve injury, paralysis, and possible , the patient indicated that the patient understood and agreed to proceed. An informed consent document was signed by the patient, witnessed by a nurse, and placed in the patient's chart. Additionally, other treatment options including medications, modalities, and physical therapy were reviewed with the patient. After review of previous anaesthesic history and IV conscious sedation the patient was deemed safe to proceed with todays procedure with IV conscious sedation as ASA class II designation. Safety time-out was performed to confirm patient ID, procedure to be performed and site of procedure. IV sedation was accomplished with 2mg of Versed was administered by the RN after DO order, titrated to patient comfort during the course of the procedure while the patient remained responsive to all verbal commands In the prone position following sterile prep and drape of the lumbar region, the right L3/4 posterior neuroforamen was identified fluoroscopically. The skin was anesthetized via a 25-gauge 1.5-inch needle with 1% lidocaine solution. At this point, a 25-gauge 3.5-inch spinal needle was atraumatically introduced and advanced under fluoroscopic guidance through the posterior right L3/4 neuroforamen to approximately the anterior aspect of the canal. Depth was confirmed on lateral view. Following negative aspiration, injection of approximately 1.5 cc of Isovue 200 under live fluoroscopy in the AP view confirmed excellent flow along the nerve root, into the epidural space without vascular or intrathecal uptake observed. Radiological data, including multiple fluoroscopic views of the lumbosacral spine, reveal a spinal needle at the right L3/4 posterior neuroforamen. Subsequent views show flow of contrast material flowing superiorly and inferiorly along the nerve root confirming epidural flow. Subsequently, a test dose of 1.5 cc of 1% lidocaine solution was administered and patient was observed for two minutes for signs or symptoms of complications, including abdominal pain, shortness of breath, bilateral upper or lower extremity weakness, nausea and vomiting, prior to steroid injection. At this point, a total of 3cc or 20mg of dexamethasone and 6mg of betamethasone was injected without incident. The patient tolerated the procedure well without signs or symptoms of complications prior to transfer to the recovery area continued monitoring without incident. The patient was then transferred to the recovery area where they were observed for an appropriate time after the injection. The patient reported a VAS score of 7 prior to the procedure and a post-procedure VAS of 0. Total Fluoroscopy Time: 11 seconds Total Conscious Sedation Time: 24min POST OP INSTRUCTIONS The patient was provided a Pain Log to continue to record their response to the target-specific procedure prior to follow-up visit with their referring physician. Additionally, specific post-injection care instructions and a contact number to our office were provided if concerns arise regarding possible complications associated with the procedure are suspected. Reilly Mak DO Complications: none
--- NOTE | 2019-06-03 13:43 | PC.NURSE ---
Post procedure transfer note: Patient medicated per providers orders. VSS throughout. Patient tolerated procedure well. Able to sit up and transfer to wheelchair with 2 assist right leg weak. Able to lay on stomache and tranfer to w/c BP 117/65, O2 Sat 98 RA. Pain level 0/10 pain level.
--- NOTE | 2019-06-03 13:53 | PC.NURSE ---
Handoff report given to Samra villa RN. Required 2 assist for transfer to recliner from wheelchair. VSS on arrival.
--- NOTE | 2019-06-03 13:54 | PC.NURSE ---
ACCEPTED CARE OF PT IN POST PROC AREA AT 1353. VSS, A&OX4, RIGHT LEG IS SLIGHTLY NUMB AND PT UNABLE TO BEAR FULL WEIGHT ON ONLY RIGHT LEG WITHOUT ASSISTANCE. TRANSFERED SAFELY FROM WHEELCHAIR TO CHAIR.
== END 2019-06-03 14:38 | disposition home or self-care (01) ==
LOC: RAD 12:17
PROVIDERS: Family Provider Physician Assistant Medical; PCP Physician Assistant Medical; Visit Provider Physical Medicine & Rehabilitation
DX: M48.061 Spinal stenosis, lumbar region without neurogenic claudication (principal); M51.16 Intervertebral disc disorders with radiculopathy, lumbar region
CPT/HCPCS: 64483; 99152; J0702; J1100; J2250

== ENCOUNTER 2019-06-23 09:06 | Day surgery (SDC) | payer MEDICARE, OTHER, SELFPAY ==
[2018-12-23 15:45] VITALS: BMI 37.0
[2019-06-20 14:38] VITALS: BMI 34.8
[2019-06-23] VITALS (7 sets, daily range): BP systolic 119–157; BP diastolic 70–91; PULSE 71–83; RESP 9–17; TEMP 35.9–36.6; O2SAT 95–99; BMI 34.8
[2019-06-23] MEDS: LACTATED RINGERS 1,000 ML 42 ML IV (10:45)
[2019-06-23] MEDS: CEFAZOLIN 2 GM/100 ML FROZ.PIGGY IV (11:26)
[2019-06-23] MEDS: BUPIVACAINE 0.5% W/ EPI (PF) 10 ML VIAL 20 ML INJ (12:00)
--- NOTE | 2019-06-23 12:26 | PM.OP.1 ---
Operative Date/Time/Diagnoses Date of procedure: 06/23/19 Time of procedure: 11:30 Pre-op diagnosis: Right carpal tunnel and cubital tunnel Post-op diagnosis: same Procedure & Clinicians Procedure: Right carpal tunnel and cubital tunnel release Same procedure as scheduled: Yes Indications: Compression of both the median and ulnar nerve Surgeon: Harsh Paul Clinical Account Liaison: Janes Venegas Anesthesia Type: General Operative Notes Findings: Compression of the median nerve at the carpal tunnel and compression of the ulnar nerve at the cubital tunnel Closure Type: primary Specimen(s): none sent Estimated Blood Loss (mL): 0 Blood products transfused: none Tourniquet time (min): 28 (At 250 mm of mercury) Procedure in detail: On date of service, the patient was met in the holding area. Patients operative site was signed and witnessed by the OR staff. The surgery was once again discussed with the patient, and any remaining questions they had were answered fully. Patient was taken back to the operating theater and placed on the operating table in a supine position. Great care was taken to ensure that all bony prominences were carefully padded. A well-padded tourniquet was placed up along the upper extremity. A timeout was performed to verify patient's name, procedure, and operative site. The arm was then prepped and draped in the normal sterile fashion. A 15 blade was used to incise through skin In the center of the palm. Pickups and tenotomy scissors were used to dissect down until the palmar fascia was visualized. The palmar fascia was then sharply incised using a 15 blade. This gave us good visualization of the carpal ligament. A small opening was made into the carpal ligament, and a curved hemostat was placed into that opening. A 15 blade was then used to sharply incise the carpal ligament with the structures beneath being protected by the hemostat. Pickups and Metzenbaum scissors were used to complete the decompression both distally and proximally. This provided a complete decompression of the median nerve. Wound was irrigated and then closed with nylon. We then turned our attention to the cubital tunnel. Ten blade was used to make an incision centered over the cubital tunnel. Ten blade was used incise through skin and fascial tissue. Electrocautery was used to achieve hemostasis. Deep knife was used to proceed with sharp dissection. Next, Metzenbaum scissors were used to identify the nerve proximal to the cubital tunnel. This was then decompressed proximally. Next, the ulnar nerve was decompressed through the cubital tunnel by releasing the cubital tunnel. This decompression was continued distally providing a complete decompression of the nerve. Wound was irrigated and then closed in a layered fashion. The hand was then cleaned, dried, and dressed. Patient was taken to the PACU in stable condition. Complications: none Post-operative Condition: stable Disposition: PACU Plan for aftercare: Patient will follow our postoperative protocol for carpal tunnel and cubital tunnel release.
--- NOTE | 2019-06-23 12:37 | SUR.PHASEI ---
Dr Zamarripa said for patient to go home and treat DM as he normally would. Pt awake, Denies pain/nausea, juice given.
== END 2019-06-23 13:05 | disposition home or self-care (01) ==
PROVIDERS: Family Provider Physician Assistant Medical; PCP Physician Assistant Medical; Referring Provider Orthopaedic Surgery; Visit Provider Orthopaedic Surgery
PROC: (CPT 64721; principal; 2019-06-23 10:45)
DX: G56.01 Carpal tunnel syndrome, right upper limb (principal); G56.21 Lesion of ulnar nerve, right upper limb
CPT/HCPCS: 64718; 64721; J0690; J1100; J2405; J2704; J3010

== ENCOUNTER → 2019-11-19 11:39 | Outpatient (CLI) | payer MEDICARE, OTHER, SELFPAY ==
[2018-12-23 15:45] VITALS: BMI 37.0
[2019-11-20 18:07] LABS: COVID19 Sendout Not Detected (Not Detect)
== END ==
PROVIDERS: Family Provider Physician Assistant Medical; PCP Physician Assistant Medical; Visit Provider Physician Assistant
DX: Z01.812 Encounter for preprocedural laboratory examination (principal)
CPT/HCPCS: 87635

== ENCOUNTER 2019-11-22 12:55 | Outpatient (CLI) | payer MEDICARE, OTHER, SELFPAY ==
[2018-12-23 15:45] VITALS: BMI 37.0
[2019-11-22] VITALS (10 sets, daily range): BP systolic 128–178; BP diastolic 71–94; PULSE 72–79; RESP 14–18; TEMP 36.6; O2SAT 95–97
--- NOTE | 2019-11-22 12:56 | DI.RAD.S_ITS ---
PROCEDURE: PAIN L/S FACET INJ/BLK 1ST CHRIS COMPARISON: None. INDICATIONS: SPONDYLOSIS FINDINGS: On these intraprocedural images, spinal needles are placed on both sides at the L3-L4 and L4-5 levels, as labeled on the films. The appropriate location of the tips of the spinal needles is confirmed by injection of a small amount of iodinated contrast. IMPRESSION: Intraprocedural examination within normal limits. Dictated by: Phi Hagen M.D. on 11/23/2019 at 9:08 Approved by: Phi Hagen M.D. on 11/23/2019 at 9:09
[2019-11-22] MEDS: MIDAZOLAM 2 MG/2 ML VIAL IV (13:56)
[2019-11-22] MEDS: BETAMETHASONE 30 MG/5 ML MDV 12 MG INJ (14:03)
[2019-11-22] MEDS: IOPAMIDOL 15 ML VIAL 3 ML INJ (14:03)
[2019-11-22] MEDS: BUPIVACAINE 0.5% (PF) VIAL 5 ML INJ (14:04)
[2019-11-22] MEDS: LIDOCAINE 1% 20 ML 10 ML INJ (14:04)
--- NOTE | 2019-11-22 14:15 | P.PCN_ITS ---
Date/Time/Diagnoses Date of procedure: 11/22/19 Time of procedure: 14:15 Pre-procedure diagnosis: 1. FACET ARTHROPATHY 2. AXIAL LBP 3. MULTILEVEL DDD Post-procedure diagnosis: same Procedure Notes Procedure: 1. FLUORSCOPICALLY GUIDED CONTRAST CONTROLLED FACET JOINT INJECTIONS BILATERAL L3/4, L4/5 Indications: Jones is referred by SOFIA Bang for treatment of Axial LBP Physician: Reilly Mak Total Fluoroscopy time (seconds): 12 Total sedation minutes: 24 Complications: none Procedure in detail & Post-procedure care: FINDINGS Multilevel Facet Arthropathy with Clinically significant axial LBP DESCRIPTION OF PROCEDURE Fluoroscopically guided, contrast-controlled bilateral L3/4, L4/5 facet joint injections. Following review of allergy and review of potential side effects and complications, including, but not necessarily limited to, infection, allergic reaction, local tissue breakdown, stroke, temporary or permanent nerve injury, paralysis, and possible , the patient indicated that the patient understood and agreed to proceed. An informed consent document was signed by the patient, witnessed by a nurse, and placed in the patient's chart. Additionally, other treatment options including medications, modalities, and physical therapy were reviewed with the patient. After review of previous anaesthesic history and IV conscious sedation the patient was deemed safe to proceed with today's procedure with IV conscious sedation as ASA class II designation. Safety time-out was performed to confirm patient ID, procedure to be performed and site of procedure. IV sedation was accomplished with a combination of 2mg of Versed was administered by the RN after DO order, titrated to patient comfort during the course of the procedure while the patient remained responsive to all verbal commands. In the prone position, following sterile prep and drape of the lumbar region, the posterior aspect of the L3/4, L4/5 facet joints were identified fluoroscopically. The skin was anesthetized via a 25-gauge 1.5-inch needle with 1% lidocaine solution into the corresponding facet joints. At this point, a 22- gauge 3.5-inch spinal needle was atraumatically introduced and advanced under fluoroscopic guidance into the corresponding facet joints. Following negative aspiration, injections of approximately 0.2-cc of Isovue 200 confirmed interarticular placement without vascular uptake. The identical procedure was then performed at the L3/4, L4/5 facet joints on the left. Radiological data, including multiple fluoroscopic views of the lumbosacral spine, reveal a spinal needle at the L3/4, L4/5 facet joints bilaterally. Subsequent views show flow of contrast material both superiorly and inferiorly within the joint space without vascular or intrathecal uptake. At this point, a total of 0.5cc including a mixture of 0.25cc Marcaine and 0.25cc betamethasone was injected without complication into each of the corresponding facet joints. The patient tolerated the procedure well without signs or symptoms of complications prior to transfer to the recovery area continued monitoring without incident. The patient was then transferred to the recovery area where they were observed for an appropriate period of time after the injection. The patient reported a VAS score of 7 prior to the procedure and a post-procedure VAS of 1. POST OP INSTRUCTIONS The patient was provided a Pain Log to continue to record their response to the target-specific procedure prior to follow-up visit with their referring physician. Additionally, specific post-injection care instructions and a contact number to our office were provided if concerns arise regarding possible complications associated with the procedure are suspected.
--- NOTE | 2019-11-22 14:37 | PC.NURSE ---
1423: pt returned to pre proc room by . Minimal assistance to transfer from wc to chair. Monitoring resumed by Danny
--- NOTE | 2019-11-22 16:19 | PC.NURSE ---
Pt tolerated procedure well. Vitals stable upon transfer to HAILEE Delgado in post procedure/recovery room. Versed given by HAILEE Coronado, all other meds administered by Dr. Mak.
== END 2019-11-22 14:54 | disposition home or self-care (01) ==
LOC: RAD 12:56
PROVIDERS: Family Provider Physician Assistant Medical; PCP Physician Assistant Medical; Referring Provider Physical Medicine & Rehabilitation; Visit Provider Physical Medicine & Rehabilitation
DX: M47.816 Spondylosis without myelopathy or radiculopathy, lumbar region (principal); M51.36 Other intervertebral disc degeneration, lumbar region; M54.5 Low back pain
CPT/HCPCS: 64493; 64494; 99152; J0702; J2250; J3010

== ENCOUNTER → 2019-11-28 10:17 | Outpatient (CLI) | payer MEDICARE, OTHER, SELFPAY ==
[2018-12-23 15:45] VITALS: BMI 37.0
[2019-11-29 03:46] LABS: COVID19 Sendout Not Detected (Not Detect)
== END ==
PROVIDERS: PCP Physician Assistant Medical; Visit Provider Nurse Practitioner
DX: Z01.812 Encounter for preprocedural laboratory examination (principal)
CPT/HCPCS: 87635

== ENCOUNTER → 2020-02-17 12:30 | Outpatient (CLI) | payer MEDICARE, OTHER, SELFPAY ==
[2018-12-23 15:45] VITALS: BMI 37.0
--- NOTE | 2020-02-17 | DI.RAD.S_ITS ---
PROCEDURE: XR KNEE RT 3V INDICATIONS: KNEE DJD TECHNIQUE: 3 views of the knee were acquired. COMPARISON: None. FINDINGS: Bones: No fractures or dislocations. No suspicious bony lesions. Scattered degenerative subchondral sclerosis and spurring. Subchondral lucency projects in the medial femoral condyle measuring approximately 4 mm. Moderate narrowing of the medial joint space Soft tissues: Scattered vascular calcifications. Small joint effusion IMPRESSION: Right knee joint degeneration as above Subchondral lucency in the medial femoral condyle raise the possibility of osteochondral defect. This could be further assessed with dedicated MRI as clinically warranted. Small joint effusion Dictated by: Marciano Gamez M.D. on 02/17/2020 at 14:05 Approved by: Marciano Gamez M.D. on 02/17/2020 at 14:07
--- NOTE | 2020-02-17 12:32 | DI.RAD.S_ITS ---
PROCEDURE: XR KNEE LT 3V INDICATIONS: Knee DJD TECHNIQUE: 3 views of the knee were acquired. COMPARISON: None. FINDINGS: Bones: No fractures or dislocations. No suspicious bony lesions. Scattered degenerative subchondral sclerosis and spurring. Severe narrowing of the medial joint space. Small joint effusion. Soft tissues: Scattered dystrophic and vascular calcifications. IMPRESSION: Degenerative joint disease, and small joint effusion If the patient's pain or other symptoms persist, consider further evaluation with MRI Dictated by: Marciano Gamez M.D. on 02/17/2020 at 14:07 Approved by: Marciano Gamez M.D. on 02/17/2020 at 14:09
--- NOTE | 2020-02-17 12:32 | DI.RAD.S_ITS ---
PROCEDURE: XR LUMBAR SPINE MIN 4V INDICATIONS: LBP TECHNIQUE: For views of the lumbar spine were acquired. COMPARISON: None. FINDINGS: Bones: 5 nonrib-bearing vertebrae are present. There is straightening of normal lumbar lordosis. Degenerative endplate changes and bilateral facet arthrosis throughout lumbar spine is seen more prominent at L3-4 through L5-S1 levels.. No vertebral body compression fractures. No suspicious bony lesions. Soft tissues: Overlying bowel gas pattern is normal. No suspicious soft tissue calcifications. Oblique images: No pars defects. Bilateral bony foraminal stenosis at L3-4 level is likely present. IMPRESSION: No acute compression fracture or spondylosis. Degenerative disc disease throughout lumbar spine as above. No gross pars defect. Dictated by: Howie Martin M.D. on 02/17/2020 at 13:31 Approved by: Howie Martin M.D. on 02/17/2020 at 13:32
== END ==
PROVIDERS: PCP Physician Assistant Medical; Referring Provider Physical Medicine & Rehabilitation; Visit Provider Physical Medicine & Rehabilitation
DX: M47.816 Spondylosis without myelopathy or radiculopathy, lumbar region (principal); M48.061 Spinal stenosis, lumbar region without neurogenic claudication; M17.11 Unilateral primary osteoarthritis, right knee; M25.461 Effusion, right knee
CPT/HCPCS: 72110; 73562

== ENCOUNTER → 2020-03-03 14:57 | Outpatient (CLI) | payer MEDICARE, OTHER, SELFPAY ==
[2018-12-23 15:45] VITALS: BMI 37.0
[2020-03-05 02:05] LABS: COVID19 Sendout Not Detected (Not Detect)
== END ==
PROVIDERS: PCP Physician Assistant Medical; Visit Provider Student in an Organized Health Care Education/Training Program
DX: Z11.59 Encounter for screening for other viral diseases (principal)
CPT/HCPCS: 87635

== ENCOUNTER 2020-03-06 12:50 | Outpatient (CLI) | payer MEDICARE, OTHER, SELFPAY ==
[2018-12-23 15:45] VITALS: BMI 37.0
[2020-03-06] VITALS (9 sets, daily range): BP systolic 102–156; BP diastolic 54–73; PULSE 79–96; RESP 13–23; O2SAT 95–99
--- NOTE | 2020-03-06 12:53 | DI.RAD.S_ITS ---
PROCEDURE: PAIN L/S FACET INJ/BLK 1ST [facility]RIS COMPARISON: [facility], XA, PAIN L/S FACET INJ/BLK 1ST CHRIS, 11/22/2019, 13:01. INDICATIONS: SPONDYLOSIS FINDINGS: Bilateral needle tip localizations at L3, L4 and L5 nerve root levels were performed, for medial branch block procedures (6 total). IMPRESSION: Successful needle tip localizations for bilateral medial branch block procedures as discussed. Dictated by: John Dillard M.D. on 03/06/2020 at 15:04 Approved by: John Dillard M.D. on 03/06/2020 at 15:05
[2020-03-06] MEDS: MIDAZOLAM 5 MG/5 ML VIAL IV (13:58)
[2020-03-06] MEDS: IOPAMIDOL 15 ML VIAL 3 ML INJ (14:01)
[2020-03-06] MEDS: BUPIVACAINE 0.5% (PF) VIAL 5 ML INJ (14:02)
[2020-03-06] MEDS: LIDOCAINE 1% 20 ML 10 ML INJ (14:03)
--- NOTE | 2020-03-06 14:15 | PM.PROC.IR.1 ---
Date/Time/Diagnoses Date of procedure: 03/06/20 Time of procedure: 14:15 Pre-procedure diagnosis: 1. FACET ARTHROPATHY Post-procedure diagnosis: same Procedure Notes Procedure: 1. BILATERAL L3, L4 AND L5 DIAGNOSTIC MB BLOCKS Indications: Jones is referred by PAC Merritt for treatment of Bilateral Axial LBP. Physician: Reilly Mak Total Fluoroscopy time (seconds): 9 Total sedation minutes: 13 Complications: none Procedure in detail & Post-procedure care: DESCRIPTION OF PROCEDURE Fluoroscopically guided, contrast-controlled bilateral L3, L4 AND L5 medial branch blocks with 0.5cc of 0.5% Marcaine. Following review of allergy and review of potential side effects and complications, including, but not necessarily limited to, infection, allergic reaction, local tissue breakdown, nerve injury, paralysis, stroke and possible , the patient indicated that the patient understood and agreed to proceed. An informed consent document was signed by the patient, witnessed by a nurse, and placed in the patient's chart. After review of previous anaesthesic history and IV conscious sedation the patient was deemed safe to proceed with today's procedure with IV conscious sedation as ASA class II designation. Safety time-out was performed to confirm patient ID, procedure to be performed and site of procedure. IV sedation was accomplished with a combination of 2mg of Versed was administered by the RN after DO order, titrated to patient comfort during the course of the procedure while the patient remained responsive to all verbal commands In the prone position, following sterile prep and drape of the lumbar region, the right L3, L4 and L5 anatomical location of the medial branch of the dorsal ramus was identified fluoroscopically. Subsequently an anesthetic skin wheal using 1% lidocaine solution was initiated at each of the anatomical spots. Subsequently then a 22-gauge 3.5-inch spinal needle was atraumatically introduced and advanced under fluoroscopic guidance at each of the corresponding sites at the right L3, L4 and L5 MB. After negative aspiration, 0.2cc of Isovue 200 was injected, confirming placement without vascular or intrathecal uptake. Subsequently then 0.5cc of 0.5% Marcaine solution was injected at each of the corresponding sites at the right L3, L4 and L5 medial branch locations. The identical procedure was replicated on the left. The patient tolerated the procedure well without signs or symptoms of complications. The patient tolerated the procedure well without signs or symptoms of complications prior to transfer to the recovery area continued monitoring without incident. Post-procedure, the patient was monitored initiating provocative activities to measure the amount of relief from block of the facetogenic pain. The patient reported a VAS of 7 prior to the procedure and a post-procedure VAS of 1. It has been a pleasure to assist in the diagnostic and therapeutic care of your patient. POST OP INSTRUCTIONS The patient was provided with a Pain Log to complete over the next several hours and subsequent days prior to the patient's follow up with the ordering physician. If the patient has branch or department chief librarian relief to the solution applied, then they may be a candidate for medial branch rhizotomy. The patient is aware, was provided, once again, with a Pain Log and will follow up with the referring physician for review and clinical correlation
== END 2020-03-06 14:35 | disposition home or self-care (01) ==
LOC: RAD 12:52
PROVIDERS: PCP Physician Assistant Medical; Referring Provider Physician Assistant Medical; Visit Provider Physical Medicine & Rehabilitation
DX: M47.816 Spondylosis without myelopathy or radiculopathy, lumbar region (principal); M54.5 Low back pain
CPT/HCPCS: 64493; 64494; 99152; J2250; J3010

== ENCOUNTER → 2020-05-30 08:19 | Outpatient (CLI) | payer MEDICARE, OTHER, SELFPAY ==
[2018-12-23 15:45] VITALS: BMI 37.0
[2020-05-30 10:36] LABS: COVID19 -Nasal RAPID Negative (Negative)
== END ==
PROVIDERS: PCP Physician Assistant Medical; Visit Provider Nurse Practitioner Family
DX: Z20.822 Contact with and (suspected) exposure to COVID-19 (principal)
CPT/HCPCS: 87635; C9803

== ENCOUNTER 2020-05-31 08:57 | Day surgery (SDC) | payer MEDICARE, OTHER, SELFPAY ==
[2018-12-23 15:45] VITALS: BMI 37.0
[2020-05-31 09:53] VITALS: BP 141/85; PULSE 88; RESP 20; TEMP 36.3; O2SAT 97; BMI 35.3
[2020-05-31] MEDS: LACTATED RINGERS 1,000 ML 42 ML IV (10:00)
--- NOTE | 2020-05-31 10:21 | PM.HP.1 ---
History of Present Illness History of Present Illness Date Patient Seen: 05/31/20 Time Patient Seen: 10: Chief complaint: SDC Narrative: 74-year-old gentleman with a history of bilateral carpal tunnel. Patient has previously had a right carpal tunnel release which he has done very well with. Is continuing to have numbness to the left hand and is interested in a left carpal tunnel release. Patient is mainly complaining of numbness to the 1st 3 fingers and half the ring finger. States that 6 months ago or so was having some numbness to the small finger but that has gone away on its own and he has not had any numbness to the small finger for over half a year now. Patient History Medical History Aneurysm Bilateral carpal tunnel syndrome COPD (chronic obstructive pulmonary disease) Coronary artery disease Degenerative joint disease of knee Diabetes Easy bruisability Facet arthropathy, lumbar Foraminal stenosis of lumbar region History of kidney stones Hypertension Kidney stones Left carpal tunnel syndrome Myocardial infarction (1987) Obesity Polyneuropathy Type 2 diabetes mellitus Ulnar tunnel syndrome of right wrist Surgical History History of carpal tunnel surgery of right wrist (06/23/19) History of colon resection (2016) History of coronary artery stent placement Hx of appendectomy Hx of tonsillectomy Hx of umbilical hernia repair S/P CABG x 4 (~1987) Family & Social History Family History Mother Hypertension Father Hypertension Social History: household members significant other Tobacco & Substance use: Smoking Status Former smoker alcohol intake never Substance Use Type marijuana Meds Home Medications and Allergies Home Medications Medication Instructions Recorded Confirmed Type Lantus U-100 Insulin 60 unit SQ QPM #0 07/08/16 05/31/20 History clopidogrel 75 mg PO DAILY #0 07/08/16 05/31/20 History fenofibrate 160 mg PO QPM #0 07/08/16 05/31/20 History nitroglycerin [Nitrostat] 0.4 mg SUBLINGUAL PRN PRN #0 07/08/16 05/31/20 History aspirin 81 mg PO QPM #0 07/09/16 05/31/20 History lisinopril 2.5 mg PO DAILY #0 07/09/16 05/31/20 History isosorbide mononitrate 45 mg PO QAM 12/06/18 05/31/20 History promethazine 25 mg PO Q6HR PRN #15 tab 12/10/18 05/31/20 Rx diclofenac sodium 1 % topical gel 1 % TOP DIRECTED PRN 09/28/19 05/31/20 History gabapentin 300 mg capsule 600 mg PO BID #0 cap 09/28/19 05/31/20 History insulin lispro 100 unit/mL 18 unit SUBCUT TIDAC #0 ml 09/28/19 05/31/20 History subcutaneous solution pantoprazole 20 mg tablet,delayed 20 mg PO DAILY tab 09/28/19 05/31/20 History release glimepiride 2 mg tablet 2 mg PO QAM tab 03/21/20 05/31/20 History Allergies Allergy/AdvReac Type Severity Reaction Status Date / Time niacin [NIACIN] Allergy Intermediate Verified 05/31/20 10:02 Afltkec-Tby-Chr Reductase Allergy Intermediate Verified 05/31/20 10:02 Inhibitor [[id number] REDUCTASE INHIBITOR] albiglutide [From Tanzeum] Allergy Unknown Verified 05/31/20 10:02 glipizide Allergy Verified 05/31/20 10:02 Review of Systems Review of Systems ROS: Yes All systems reviewed with the patient and are negative except as otherwise documented Exam Vital Signs (past 8 hours): - 05/31/20 09:53 Temperature 97.4 F L Pulse Rate 88 Respiratory Rate 20 Blood Pressure 141/85 H Pulse Oximetry 97 Oxygen Delivery Method Room Air Narrative Exam Narrative: On physical exam, no swelling or deformities to the hand. No sign of any thenar atrophy or intrinsic wasting. Patient has full range of motion of the wrist and fingers. Patient has decreased sensation in the median nerve distribution. Normal strength in the ulnar nerve distribution. Positive Tinel's, thumb compression, Phalens test. Assessment & Plan Assessment & Plan narrative: Gentleman with left carpal tunnel is positive on physical exam findings as well as EMG study. This due to this fact. Patient is interested in surgical treatment for his carpal tunnel. Fully understands the risks and limitations associated with the procedure. All of his questions and concerns were answered to his full satisfaction and consent form was freely obtained. Time Spent With Patient Time with patient: less than 15 minutes
--- NOTE | 2020-05-31 10:24 | PM.PREOP ---
Pre-operative Note COVID-19 COVID-19 status: Negative Result date/Date tested (Pos, Neg/Pending): 05/29/20 Interval Note History & Physical reviewed/Exam performed by Physician: Yes Changes to H&P: Yes
[2020-05-31] MEDS: CEFAZOLIN 2 GM/100 ML FROZ.PIGGY IV (10:45)
--- NOTE | 2020-05-31 11:04 | SUR.OPER ---
Supine on padded OR bed, head on pillow, right arms secured on padded arm boards at <90 degrees abduction, Left arm on padded board in control of the surgeon legs uncrossed, safety belt at thigh.
[2020-05-31] MEDS: BUPIVACAINE 0.5% W/ EPI (PF) 30 ML VIAL INJ (11:06)
[2020-05-31 11:20] VITALS: BP 126/67; PULSE 82; RESP 16; TEMP 36.2; O2SAT 95
--- NOTE | 2020-05-31 11:27 | PM.OP.1 ---
Operative Date/Time/Diagnoses Date of procedure: 05/31/20 Time of procedure: 10:44 Pre-op diagnosis: Left carpal tunnel Post-op diagnosis: same Procedure & Clinicians Procedure: Left carpal tunnel release Same procedure as scheduled: Yes Indications: Left carpal tunnel Surgeon: Harsh Paul Click Yes if Unassisted: Yes Anesthesia Type: Peripheral nerve block Operative Notes Findings: Compression of the median nerve at the carpal tunnel Closure Type: primary Estimated Blood Loss (mL): 0 Blood products transfused: none Tourniquet time (min): 19 Procedure in detail: On date of service, the patient was met in the holding area. Patients operative site was signed and witnessed by the OR staff. The surgery was once again discussed with the patient, and any remaining questions they had were answered fully. Patient was taken back to the operating theater and placed on the operating table in a supine position. Great care was taken to ensure that all bony prominences were carefully padded. A well-padded tourniquet was placed up along the upper extremity. A timeout was performed to verify patient's name, procedure, and operative site. The arm was then prepped and draped in the normal sterile fashion. A 15 blade was used to incise through skin In the center of the palm. Pickups and tenotomy scissors were used to dissect down until the palmar fascia was visualized. The palmar fascia was then sharply incised using a 15 blade. This gave us good visualization of the carpal ligament. A small opening was made into the carpal ligament, and a curved hemostat was placed into that opening. A 15 blade was then used to sharply incise the carpal ligament with the structures beneath being protected by the hemostat. Pickups and Metzenbaum scissors were used to complete the decompression both distally and proximally. This provided a complete decompression of the median nerve. The wound was then irrigated and closed with nylon. The hand was then cleaned, dried, and dressed. Patient was taken to the PACU in stable condition. Complications: none Post-operative Condition: stable Disposition: PACU Plan for aftercare: Patient will follow our postoperative protocol for carpal tunnel release
[2020-05-31 11:45] VITALS: BP 115/60; PULSE 74; RESP 16; TEMP 36.3; O2SAT 95
== END 2020-05-31 12:05 | disposition home or self-care (01) ==
PROVIDERS: PCP Physician Assistant Medical; Referring Provider Orthopaedic Surgery; Visit Provider Orthopaedic Surgery
PROC: (CPT 64721; principal; 2020-05-31 10:45)
DX: G56.02 Carpal tunnel syndrome, left upper limb (principal); I25.10 Atherosclerotic heart disease of native coronary artery without angina pectoris; Z95.1 Presence of aortocoronary bypass graft; E11.9 Type 2 diabetes mellitus without complications; Z79.4 Long term (current) use of insulin; J44.9 Chronic obstructive pulmonary disease, unspecified; I10 Essential (primary) hypertension; E66.9 Obesity, unspecified; Z68.35 Body mass index [BMI] 35.0-35.9, adult
CPT/HCPCS: 64721; J0690; J2250

== ENCOUNTER → 2020-09-04 08:48 | Outpatient (CLI) | payer MEDICARE, OTHER, SELFPAY ==
[2018-12-23 15:45] VITALS: BMI 37.0
[2020-09-04 18:39] LABS: COVID19 -Nasal RAPID Negative (Negative)
== END ==
PROVIDERS: PCP Physician Assistant Medical; Visit Provider Physical Medicine & Rehabilitation
DX: Z20.822 Contact with and (suspected) exposure to COVID-19 (principal)
CPT/HCPCS: 87635; C9803

== ENCOUNTER 2020-09-06 13:36 | Outpatient (CLI) | payer MEDICARE, OTHER, SELFPAY ==
[2018-12-23 15:45] VITALS: BMI 37.0
--- NOTE | 2020-09-06 13:40 | DI.RAD.S_ITS ---
PROCEDURE: PAIN L/S TRANSFORAM INJECT CHRIS COMPARISON: [facility], , PAIN L/S FACET INJ/BLK 1ST CHRIS, 03/06/2020, 14:01. INDICATIONS: SPONDYLOSIS FINDINGS: Fluoroscopic spot filming was performed to verify placement of spinal needles at the L3-L4 level on both sides, as labeled on the films. Appropriate location of the needle tip was confirmed by injection of iodinated contrast. IMPRESSION: Intraprocedural examination within normal limits. Dictated by: Phi Hagen M.D. on 09/06/2020 at 14:39 Approved by: Phi Hagen M.D. on 09/06/2020 at 14:39
[2020-09-06 13:45] VITALS: BP 133/73; PULSE 79; RESP 16; TEMP 36.6; O2SAT 96
[2020-09-06 14:45] VITALS: BP 164/79; PULSE 79; RESP 18; O2SAT 96
[2020-09-06] MEDS: MIDAZOLAM 5 MG/5 ML VIAL IV (14:45)
[2020-09-06] MEDS: fentaNYL 100 MCG/2 ML INJ 50 MCG IV (14:45)
[2020-09-06] MEDS: IOPAMIDOL 15 ML VIAL 3 ML INJ (14:48)
[2020-09-06] MEDS: BUPIVACAINE 0.25% (PF) VIAL 2 ML INJ (14:48)
[2020-09-06] MEDS: BETAMETHASONE 30 MG/5 ML MDV 6 MG INJ (14:48)
[2020-09-06] MEDS: DEXAMETHASONE 10 MG/ML VIAL 20 MG INJ (14:48)
[2020-09-06 14:50] VITALS: BP 126/62; PULSE 74; RESP 15; O2SAT 94
[2020-09-06 14:55] VITALS: BP 129/66; PULSE 95; RESP 15; O2SAT 95
--- NOTE | 2020-09-06 15:01 | P.PCN_ITS ---
Date/Time/Diagnoses Date of procedure: 09/06/20 Time of procedure: 15:02 Pre-procedure diagnosis: 1. FORAMINAL STENOSIS WITH LE SYMPTOMS Post-procedure diagnosis: same Procedure Notes Procedure: 1. FLUOROSCOPICALLY GUIDED CONTRAST CONTROLLED TRANSFORAMINAL EPIDURAL STEROID INJECTION - BILATERAL L3/4 TFESI Indications: Jones is referred by SOFIA Bang for treatment of Foraminal Stenosis with bilateral LE Symptoms Physician: Reilly Mak Total Fluoroscopy time (seconds): 15 Total sedation minutes: 13 Complications: none Procedure in detail & Post-procedure care: FINDINGS Foraminal Nerve Root Compression secondary to disc disease and facet hypertrophy DESCRIPTION OF PROCEDURE Following review of allergy and review of potential side effects and complications, including, but not necessarily limited to, infection, allergic reaction, local tissue breakdown, stroke, temporary or permanent nerve injury, paralysis, and possible , the patient indicated that the patient understood and agreed to proceed. An informed consent document was signed by the patient, witnessed by a nurse, and placed in the patient's chart. Additionally, other treatment options including medications, modalities, and physical therapy were reviewed with the patient. After review of previous anaesthesic history and IV conscious sedation the patient was deemed safe to proceed with today?s procedure with IV conscious sedation as ASA class II designation. Safety time-out was performed to confirm patient ID, procedure to be performed and site of procedure. IV sedation was accomplished with a combination of 2mg of Versed was administered by the RN after DO order, titrated to patient comfort during the course of the procedure while the patient remained responsive to all verbal commands In the prone position following sterile prep and drape of the lumbar region, the right L3/4 posterior neuroforamen was identified fluoroscopically. The skin was anesthetized via a 25-gauge 1.5-inch needle with 1% lidocaine solution. At this point, a 25-gauge 3.5-inch spinal needle was atraumatically introduced and advanced under fluoroscopic guidance through the posterior right L3/4 neuroforamen to approximately the anterior aspect of the canal. Depth was confirmed on lateral view. Following negative aspiration, injection of approximately 1.5cc of Isovue 200 under live fluoroscopy in the AP view confirmed excellent flow along the nerve root, into the epidural space without vascular or intrathecal uptake observed Radiological data, including multiple fluoroscopic views of the lumbosacral spine, reveal a spinal needle at the right L3/4 posterior neuroforamen. Subsequent views show flow of contrast material flowing superiorly and inferiorly along the nerve root confirming epidural flow. Subsequently, a test dose of 1.5cc of 1% lidocaine solution was administered and patient was observed for two minutes for signs or symptoms of complications, including abdominal pain, shortness of breath, bilateral upper or lower ex tremity weakness, nausea and vomiting, prior to steroid injection. At this point, a total of 3cc or 20mg of dexamethasone and 6mg betamethasone was injected without incident. Attention was then refocused to the left L3/4 level where the identical procedure was replicated. The procedure tolerated the procedure well without signs or symptoms of complications prior to transfer to the recovery area continued monitoring without incident. The patient was then transferred to the recovery area where they were observed for an appropriate time after the injection. The patient reported a VAS score o f 7 prior to the procedure and a post-procedure VAS of 0. POST OP INSTRUCTIONS The patient was provided a Pain Log to continue to record their response to the target-specific procedure prior to follow-up visit with their referring physician. Additionally, specific post-injection care instructions and a contact number to our office were provided if concerns arise regarding possible complications associated with the procedure are suspected.
[2020-09-06 15:05] VITALS: BP 148/72; PULSE 76; RESP 16; O2SAT 95
[2020-09-06 15:10] VITALS: BP 147/67; PULSE 79; RESP 17; O2SAT 95
== END 2020-09-06 15:12 | disposition home or self-care (01) ==
LOC: RAD 13:39
PROVIDERS: PCP Physician Assistant Medical; Referring Provider Physical Medicine & Rehabilitation; Visit Provider Physical Medicine & Rehabilitation
DX: M48.061 Spinal stenosis, lumbar region without neurogenic claudication (principal); M51.16 Intervertebral disc disorders with radiculopathy, lumbar region
CPT/HCPCS: 64483; 99152; J0702; J1100; J2250; J3010

== ENCOUNTER → 2020-10-15 08:42 | Outpatient (CLI) | payer MEDICARE, OTHER, SELFPAY ==
[2018-12-23 15:45] VITALS: BMI 37.0
[2020-10-15 16:16] LABS: COVID19 -Nasal RAPID Negative (Negative)
== END ==
PROVIDERS: PCP Physician Assistant Medical; Visit Provider Physical Medicine & Rehabilitation
DX: Z20.822 Contact with and (suspected) exposure to COVID-19 (principal)
CPT/HCPCS: 87635; C9803

== ENCOUNTER 2020-10-16 10:32 | Outpatient (CLI) | payer MEDICARE, OTHER, SELFPAY ==
[2018-12-23 15:45] VITALS: BMI 37.0
[2020-10-16] VITALS (11 sets, daily range): BP systolic 113–134; BP diastolic 58–72; PULSE 68–75; RESP 12–21; TEMP 36.4; O2SAT 95–97
--- NOTE | 2020-10-16 10:34 | DI.RAD.S_ITS ---
PROCEDURE: PAIN L/S MED/LAT N RFA BILAT INDICATIONS: SPONDYLOSIS COMPARISON: None. FINDINGS: Fluoroscopic spot filming was performed to verify placement of spinal needles at the L3, L4, L5 level(s), as labeled on the films. Appropriate location(s) of the needle tip(s) was confirmed by injection of iodinated contrast. IMPRESSION: Successful bilateral L3, L4, L5 needle tip localizations for bilateral medial branch block procedures open (6 total). Dictated by: John Dillard M.D. on 10/16/2020 at 13:37 Approved by: John Dillard M.D. on 10/16/2020 at 13:38
[2020-10-16] MEDS: fentaNYL 100 MCG/2 ML INJ 50 MCG IV (11:47)
[2020-10-16] MEDS: MIDAZOLAM 5 MG/5 ML VIAL IV (11:51)
[2020-10-16] MEDS: LIDOCAINE 1% 20 ML INJ (11:52)
[2020-10-16] MEDS: BUPIVACAINE 0.5% (PF) VIAL 5 ML INJ (11:52)
--- NOTE | 2020-10-16 12:22 | P.PCN_ITS ---
Date/Time/Diagnoses Date of procedure: 10/16/20 Time of procedure: 12:22 Pre-procedure diagnosis: 1. RECALCITRANT FACET ARTHROPATHY Post-procedure diagnosis: same Procedure Notes Procedure: 1. BILATERAL L3, L4 AND L5 MEDIAL BRANCH RADIOFREQUENCY NEUROTOMY Indications: Jones is referred by SOFIA Bang for treatment of facet arthropathy. Physician: Reilly Mak Total Fluoroscopy time (seconds): 31 Total sedation minutes: 15 Complications: none Procedure in detail & Post-procedure care: DESCRIPTION OF PROCEDURE Bilateral L3, L4 and L5 medial branch radiofrequency neurotomy The patient is well known to this clinic having undergone previous facet injections with good but temporary relief. The patient has experienced appropriate, concordant relief with previous facet and median branch blocks but the patient's pain has been recalcitrant to further conservative measures. Therefore, based upon the patient's relief and persistent symptoms, the patient is considered an appropriate candidate for facet rhizotomy. All of the patient's questions regarding the risks versus benefits of the procedure, including, but not limited to, bleeding, infection, temporary as well as lasting nerve injury, paralysis, stroke, and , as well treatment alternatives were answered to satisfaction. After obtaining informed consent, denial of pertinent drug allergies, as well as being made aware of the potential risks of bleeding, infection, spinal cord trauma, paralysis, temporary and permanent nerve damage, seizure, stroke, and possible , the patient was brought to the fluoroscopy suite and positioned prone on the fluoroscopy table. The lumbar region was prepped with Betadine and covered with a fenestrated drape in the usual sterile fashion. Appropriate monitors applied including pulse oximeter, pulse, and blood pressure for regular monitoring throughout the procedure. After review of previous anaesthesic history and IV conscious sedation the patient was deemed safe to proceed with today's procedure with IV conscious sedation as ASA class II designation. Safety time-out was performed to confirm patient ID, procedure to be performed and site of procedure. IV sedation was accomplished with a combination of 3mg of Versed and 50mcg of Fentanyl administered by the RN after DO order, titrated to patient comfort during the course of the procedure while the patient remained responsive to all verbal commands. After local infiltration using 1% lidocaine, under fluoroscopic guidance, a 10- cm RF insulated needle with a 10-mm active tip was positioned parallel to the junction of the right the superior articulating process where the L5 medial branch resides. Needle placement was confirmed with motor stimulation of .5v on the right which produced local stimulation without radicular component. The stimulation was then increased to 2v with, once again, only local multifidus stimulation without radicular component. The needle was then removed and the identical procedure was performed along the length of the right L4 medial branch with motor stimulation at .7v on the right. The identical procedure was once again performed along the length of the right L3 and medial branch with motor stimulation of .5v on the right. The medial branches were then anesthetised with 0.5% marcaine. This was then followed by two discreet lesions performed at 80 degrees Celsius for 90 seconds each. The identical procedures were repeated on the left. The patient tolerated the procedure well without signs or symptoms of complications prior to transfer to the recovery area continued monitoring without incident. The patient was then transferred to the recovery area where they were observed for an appropriate period of time after the injection. The patient reported a VAS score of 9 prior to the procedure and a post-procedure VAS of 0. POST OP INSTRUCTIONS The patient was provided a Pain Log to continue to record the patient's response to the target-specific procedure prior to the patient's follow-up visit with the referring physician. Additionally, specific post-injection care instructions and a contact number to our office were provided if concerns arise regarding possible complications associated with the procedure are suspected.
== END 2020-10-16 12:40 | disposition home or self-care (01) ==
LOC: RAD 10:33
PROVIDERS: PCP Physician Assistant Medical; Referring Provider Physical Medicine & Rehabilitation; Visit Provider Physical Medicine & Rehabilitation
DX: M47.816 Spondylosis without myelopathy or radiculopathy, lumbar region (principal)
CPT/HCPCS: 64635; 64636; 99152; 99153; J2250; J3010

== ENCOUNTER → 2023-07-24 11:19 | Outpatient (CLI) | payer MEDICARE, OTHER, SELFPAY ==
[2018-12-23 15:45] VITALS: BMI 37.0
[2023-07-24 13:37] LABS: Alanine Aminotransferase 20 IU/L (<50); Albumin 4.2 g/dL (3.5-5.0); Albumin Globulin Ratio 1.3 (1.0-2.8); Alkaline Phosphatase 108 U/L (38-126); Aspartate Aminotransferase 22 IU/L (17-59); BUN Creatinine Ratio 18.3 (6-22); Blood Urea Nitrogen 15 mg/dL (9-20); Calcium 9.4 mg/dL (8.4-10.2); Carbon Dioxide 25 mmol/L (22-32); Chloride 104 mmol/L (98-107); Estimated Glomerular Filt Rate > 60 mL/min (>60); Globulin 3.3 g/dL (1.7-4.1); Glucose 257 mg/dL (80-110); HEMOLYSIS < 15 (0-50); Potassium 4.3 mmol/L (3.4-5.1); Sodium 136 mmol/L (137-145); Total Protein 7.5 g/dL (6.3-8.2)
== END ==
LOC: LAB 11:22
PROVIDERS: PCP Physician Assistant Medical; Referring Provider Nurse Practitioner; Visit Provider Nurse Practitioner
DX: I25.5 Ischemic cardiomyopathy (principal)
CPT/HCPCS: 36415; 80053

== ENCOUNTER → 2024-12-07 13:19 | Outpatient (CLI) | payer MEDICARE, OTHER, SELFPAY ==
[2018-12-23 15:45] VITALS: BMI 37.0
--- NOTE | 2024-12-07 13:21 | DI.ECHO.S_ITS ---
[facility] : : [address] : : [place] : : [id number] : : Phone: [phone] Echocardiogram Report + + :Name: LISA GRANADO Study Date: 12/07/2024 Height: 70 in : :[facility] ReadingLocation: Weight: 230 lb : : Gender: Male BSA: 2.2 m2 : :: 1945 Age: 79 yrs BP: 113/74 mmHg: :Reason For Study: ISCHEMIC CARDIOMYOPATHY : :Ordering Physician: : :LALY COFFMAN Performed By: Jhonny Maurice : :Referring: LALY COFFMAN : + + Interpretation Summary The study quality was technically difficult. The ejection fraction is estimated to be 55-60%. Diastolic function is indeterminate. The right ventricle grossly appears normal in size with probable normal systolic function. There is mild aortic regurgitation. Pulmonary artery pressures cannot be estimated because of the lack of a measurable TR jet velocity but the IVC suggests a CVP of around 3 mmHg. The ascending aorta is mildly enlarged. Compared to the prior study 10/08/2023, the ejection fraction has increased. Procedure: A two-dimensional transthoracic echocardiogram with color flow and Doppler was performed. Comparison is made with the echocardiogram of 10/08/2023. The study quality was technically difficult. The patient was in normal sinus rhythm during the exam. Left Ventricle: The left ventricle is normal in size. Left ventricular wall thickness is mildly increased. There is no ventricular septal defect visualized. The ejection fraction is estimated to be 55-60%. Regional wall motion abnormalities cannot be excluded due to limited visualization. Diastolic function is indeterminate. Right Ventricle: There is a pacemaker lead in the right ventricle. The right ventricle grossly appears normal in size with probable normal systolic function. Atria: The left atrial size is normal. Right atrial size is normal. There is no Doppler evidence for an interatrial shunt. Mitral Valve: There is mild mitral annular calcification. The mitral valve leaflets appear mildly thickened. The mitral valve leaflets are mildly calcified. There is trace mitral regurgitation. Aortic Valve: The aortic valve is trileaflet. The aortic valve opens well. The aortic valve is mildly calcified. There is no aortic valve stenosis. There is mild aortic regurgitation. Tricuspid Valve: The tricuspid valve is not well visualized, but is grossly normal. No tricuspid regurgitation. Pulmonary artery pressures cannot be estimated because of the lack of a measurable TR jet velocity but the IVC suggests a CVP of around 3 mmHg. Pulmonic Valve: The pulmonic valve is not well seen, but is grossly normal. There is no pulmonic valvular regurgitation. Great Vessels: The aortic root is mildly dilated. The ascending aorta is mildly enlarged. The pulmonary artery is not well visualized, but is probably normal size. The IVC is of normal diameter and collapses greater than 50% with a sniff. This suggests a low right atrial pressure of 3 mm Hg. Pericardium/ Pleura There is no pericardial effusion. There is no pleural effusion. MMode/2D Measurements & Calculations LVIDd: 5.0 cm LVOT diam: 2.2 cm LVIDs: 3.0 cm Ao root diam: 3.7 cm FS: 39.8 % asc Aorta Diam: 3.9 cm EPSS: 1.5 cm IVSd: 1.2 cm LVPWd: 1.2 cm LV zhong. diameter/BSA (cm/m^2): 2.3 LV sys. diameter/BSA (cm/m^2): 1.4 LA A2 area: 22.1 cm2 RA long axis: 3.7 cm LA A4 area: 19.5 cm2 RA area: 9.2 cm2 LA length (vol): 5.4 cm RA vol: 19.7 ml LA vol: 68.0 ml RA : 8.9 ml/m2 LA vol index: 30.7 ml/m2 IVC diam: 1.6 cm TAPSE: 1.6 cm Doppler Measurements & Calculations Ao V2 max: 140.6 cm/sec LVOT Max [place]: 78.9 cm/sec Ao V2 mean: 97.8 cm/sec LV V1 max P.5 mmHg Ao max P.9 mmHg LV V1 VTI: 19.8 cm Ao mean P.3 mmHg ELSY(I,D): 2.4 cm2 Ao V2 VTI: 33.1 cm ELSY(V,D): 2.2 cm2 sev ratio: 0.60 ELSY indexed to BSA (cm^2/m^2): 1.1 MV E max israel: 64.9 cm/sec PA V2 max: 117.2 cm/sec MV A max israel: 86.4 cm/sec PA V2 mean: 78.1 cm/sec MV E/A: 0.75 PA mean P.7 mmHg Med Peak E' [place]: 3.1 cm/sec PA pr(Accel): 53.3 mmHg E/E' med: 20.8 Lat Peak E' [place]: 5.3 cm/sec E/E' lat: 12.2 E/e' average: 16.5 MV dec time: 0.34 sec SV(LVOT): 78.3 ml Reading Physician:12:42 PM
== END ==
LOC: ECHO 13:20
PROVIDERS: PCP Physician Assistant Medical; Referring Provider Internal Medicine Cardiovascular Disease; Visit Provider Internal Medicine Cardiovascular Disease
DX: I25.5 Ischemic cardiomyopathy (principal); I35.1 Nonrheumatic aortic (valve) insufficiency; I51.7 Cardiomegaly
CPT/HCPCS: 93306